=== PATIENT | male | born 1930 | race Caucasian/White ===

== ENCOUNTER 2016-11-19 13:24 | Inpatient (IN) | payer OTHER, MEDICARE ==
[~2016-11-19] VITALS: Ht 182.9 cm; Wt 82.6 kg
[~2016-11-19 13:24] MED LIST: ALBUAER2 INH; ASPCH81X PO; CALCTAB5 PO; CHOL100010 PO; MULT-506 PO; NUTR-977 GJT
[2016-11-19] MEDS ORDERED: METOPROLOL TARTRATE 1 MG/ML VIAL IV STA (13:48)
--- NOTE | 2016-11-19 14:07 | EMERGENCY ROOM VISIT NOTE ---
History Report prepared by [place]: Risa Blount Under the Supervision of: Dr. Leonard Lucia M.D. First contact with patient: 13:43 Chief Complaint: CARDIAC ASSESSMENT Stated Complaint: AFIB Nursing Triage Summary: Patient arrived via EMS. Patient has recent history of Afib (discovered at a normal check up per patient), Patient had been placed on Betablocker but pt reports he started feeling weak and SOB after he started the medication. Echo done today, aortic stenosis and mitral regurgitaion per EMS. Patient unable to be on anticoagulants, does take Aspirin 81mg today. Afib 100-120 initially per EMS, now 130's to 140's. EMS administered Nitro x 2 (sprays). Patient denies all chest pain. History of Present Illness The patient is a 86 year old male who presents to the Emergency Room with complaints of sudden atrial fibrillation that was noticed prior to arrival. The patient came to the ED via ambulance and was given 2 nitro sprays en route. The patient states that he had an echocardiogram done earlier today by Dr. Adames - Cardiology, which EMS reported to reveal aortic stenosis and mitral regurgitation. He denies any history of atrial fibrillation, but states that he was told many years ago that his "heart skipped a beat" once in a while. The patient states that he was scheduled for the echocardiogram by his PCP because of abnormal EKG findings 3 weeks ago when he was seen by his PCP in the office. The patient states that his EKG from 3 weeks ago revealed an elevated heart rate , per his . The patient's PCP then started him on medication for hypertension. The patient was on those medications for 2 weeks, but he stopped taking them after consulting his PCP because he was experiencing generalized weakness, fatigue, and worsening shortness of breath. The patient has been off of those medications for about one week now. The patient denies any chest pain or abdominal pain, along with lower extremity edema. He denies any history of heart problems and states that he takes a baby aspirin daily. Source of History: patient, friend, EMS Onset: [employer] Position: chest Quality: other (atrial fibrillation) Timing: other (sudden) Associated Symptoms: + SOB, + fatigue, + weakness, No abdominal pain, No chest pain Note: no lower extremity edema Review of Systems All systems have been listed, reviewed, and are negative other than those previously mentioned. Please see Additional Medical History Sheet. Past Medical & Surgical Medical Problems: (1) Atrial fibrillation with RVR (2) COPD (chronic obstructive pulmonary disease) (3) History of bladder cancer (4) History of prostate cancer (5) Hypertension (6) Hypoxia (7) Prostate CA Surgical Problems: (1) H/O cystoscopy (2) H/O prostate biopsy (3) History of cataract surgery Family History FH: aneurysm Social History Smoking Status: Never Smoker Alcohol Use: occasionally Drug Use: none Marital Status: Housing Status: lives with family Occupation Status: retired Current/Historical Medications Scheduled Aspirin (Aspirin Chewable), 81 MG PO DAILY Calcium Carbonate (Calcium), 2 TAB PO DAILY Cholecalciferol (Vitamin D), 1 TAB PO DAILY Multivitamin (Multivitamin), 1 TAB PO DAILY Scheduled PRN Albuterol Hfa (Ventolin Hfa), 2 PUFFS INH TID PRN for SOB/Wheezing Allergies Coded Allergies: No Known Allergies (Unverified , `, 11/19/16) Physical Exam Vital Signs Date Time Temp Pulse Resp B/P Pulse Ox O2 Delivery O2 Flow Rate FiO2 11/19/16 14:39 102 18 98 Nasal Cannula 3.0 11/19/16 14:34 107 21 98 Nasal Cannula 3.0 11/19/16 14:30 137/83 11/19/16 14:29 102 24 98 Nasal Cannula 3.0 11/19/16 14:24 105 14 99 Nasal Cannula 3.0 11/19/16 14:20 139/97 11/19/16 14:19 106 19 100 Nasal Cannula 3.0 11/19/16 14:15 154/97 11/19/16 14:14 110 20 99 Nasal Cannula 3.0 11/19/16 14:10 147/96 11/19/16 14:09 126 18 99 Nasal Cannula 3.0 11/19/16 14:08 123 153/92 11/19/16 14:06 153/92 11/19/16 14:04 132 20 94 Nasal Cannula 3.0 11/19/16 13:59 132 27 99 Nasal Cannula 3.0 11/19/16 13:56 98 Nasal Cannula 3.0 11/19/16 13:54 137 22 100 Nasal Cannula 3.0 11/19/16 13:49 132 23 95 Nasal Cannula 3.0 11/19/16 13:44 138 21 98 Nasal Cannula 3.0 11/19/16 13:39 140 22 97 Nasal Cannula 3.0 11/19/16 13:34 135 14 97 Nasal Cannula 3.0 11/19/16 13:33 98 Nasal Cannula 3.0 11/19/16 13:32 96 Nasal Cannula 3.0 11/19/16 13:28 36.9 134 26 153/104 84 Room Air 11/19/16 13:28 134 Physical Exam GENERAL: Patient awake, alert, oriented x 3. Patient follows commands. Patient does not appear toxic. Patient is adequately hydrated and well- nourished. SKIN: No erythema, pallor, cyanosis or rash HEENT: Normal head, pupils equal, reactive to light and accommodation. Ears normal. Oral cavity and posterior pharynx appear normal. Neck: Without adenopathy, no neck vein distention. LUNGS: Clear to auscultation. No wheezes, no rales, no rhonchi. HEART: Irregularly irregular rhythm with a rapid rate. No murmurs. No gallops. No rubs ABDOMEN: No masses, no rebound, no hepatomegaly or splenomegaly. EXTREMITIES: No signs of trauma. No pedal or pretibial edema. No calf or thigh tenderness. NEUROLOGIC: Cranial nerves II-XII within normal limits. No gross motor sensory function deficits. Medical Decision & Procedures ER Provider Diagnostic Interpretation: X ray results are stated below per my interpretation and the radiologist's interpretation. SINGLE VIEW CHEST IMPRESSION: 1. Cardiomegaly and severe emphysema. 2. There is airspace consolidation at the right lung base with a small right pleural effusion. Correlate clinically for evidence of aspiration pneumonitis/pneumonia. Radiographic follow-up to resolution is recommended. Electronically signed by: Abel Valdovinos M.D. 11/19/2016 2:10 PM Dictated Date/Time: 11/19/2016 2:08 PM Laboratory Results 11/19/16 14:10 Red Blood Count 4.54, Mean Corpuscular Volume 95.2, Mean Corpuscular Hemoglobin 30.8, Mean Corpuscular Hemoglobin Concent 32.4, Mean Platelet Volume 11.3, Neutrophils (%) (Auto) 79.2, Lymphocytes (%) (Auto) 8.6, Monocytes (%) (Auto) 11.2, Eosinophils (%) (Auto) 0.6, Basophils (%) (Auto) 0.2, Neutrophils # (Auto ) 6.55, Lymphocytes # (Auto) 0.71, Monocytes # (Auto) 0.93, Eosinophils # (Auto ) 0.05, Basophils # (Auto) 0.02 11/19/16 14:10 Test 11/19/16 14:10 White Blood Count 8.28 K/uL (4.8-10.8) Red Blood Count 4.54 M/uL (4.7-6.1) Hemoglobin 14.0 g/dL (14.0-18.0) Hematocrit 43.2 % (42-52) Mean Corpuscular Volume 95.2 fL (80-100) Mean Corpuscular Hemoglobin 30.8 pg (25-34) Mean Corpuscular Hemoglobin Concent 32.4 g/dl (32-36) Platelet Count 145 K/uL (130-400) Mean Platelet Volume 11.3 fL (7.4-10.4) Neutrophils (%) (Auto) 79.2 % Lymphocytes (%) (Auto) 8.6 % Monocytes (%) (Auto) 11.2 % Eosinophils (%) (Auto) 0.6 % Basophils (%) (Auto) 0.2 % Neutrophils # (Auto) 6.55 K/uL (1.4-6.5) Lymphocytes # (Auto) 0.71 K/uL (1.2-3.4) Monocytes # (Auto) 0.93 K/uL (0.11-0.59) Eosinophils # (Auto) 0.05 K/uL (0-0.5) Basophils # (Auto) 0.02 K/uL (0-0.2) RDW Standard Deviation 48.8 fL (36.4-46.3) RDW Coefficient of Variation 14.1 % (11.5-14.5) Immature Granulocyte % (Auto) 0.2 % Immature Granulocyte # (Auto) 0.02 K/uL (0.00-0.02) Prothrombin Time 11.5 SECONDS (9.0-12.0) Prothromb Time International Ratio 1.1 (0.9-1.1) Activated Partial Thromboplast Time 28.0 SECONDS (21.0-31.0) Partial Thromboplastin Ratio 1.1 Anion Gap 4.0 mmol/L (3-11) Est Creatinine Clear Calc Drug Dose 43.1 ml/min Estimated GFR () 56.5 Estimated GFR (Non- 48.7 BUN/Creatinine Ratio 16.7 (10-20) Calcium Level 8.9 mg/dl (8.5-10.1) Magnesium Level 2.3 mg/dl (1.8-2.4) Total Bilirubin 1.0 mg/dl (0.2-1) Aspartate Amino Transf (AST/SGOT) 29 U/L (15-37) Alanine Aminotransferase (ALT/SGPT) 29 U/L (12-78) Alkaline Phosphatase 49 U/L (45-117) Troponin I 0.025 ng/ml (0-0.045) Total Protein 6.4 gm/dl (6.4-8.2) Albumin 3.5 gm/dl (3.4-5.0) Globulin 2.9 gm/dl (2.5-4.0) Albumin/Globulin Ratio 1.2 (0.9-2) Thyroid Stimulating Hormone (TSH) 2.090 uIu/ml (0.300-4.500) Laboratory results as stated above per my review. Medications Administered Medications (Trade) Dose Ordered Sig/Reginaldo Route Start Time Stop Time Status Last Admin Dose Admin Metoprolol Tartrate (Lopressor Iv) 15 mg NOW STAT IV 11/19/16 13:48 11/19/16 13:50 DC 11/19/16 14:08 15 MG ECG Indication: SOB/dyspnea Rate (beats per minute): 136 Rhythm: atrial fibrillation (with rapid ventricular response) Findings: nonspecific-ST abn, other (normal axis) ED Course 1343: Past medical records reviewed. The patient was evaluated in room A12. A complete history and physical examination was performed. 1348: Ordered Lopressor 15 mg IV 1424: Discussed the patient's case with Dr. Adames - Cardiology. He informed me that the patient was in new-onset atrial fibrillation on October 30 with weakness and shortness of breath. The patient was treated as an outpatient and his symptoms today are not new. Dr. Adames also recommended admission. 1501: Discussed the patient's case with Anjali Best. The patient will be evaluated for further management. 1506: Upon reevaluation, the patient is resting comfortably. His heart rate is still above 100. I discussed today's findings with him. He verbalized agreement of the treatment plan. [facility] for further management. Medical Decision Nurses notes reviewed. Medical history sheet reviewed. Differential diagnosis includes but is not limited to: atrial fibrillation with rapid ventricular response, metabolic disorder, thyroid disorder, pulmonary hypertension. The patient has been in atrial fibrillation for at least 2 weeks. He has a rapid ventricular response. Echocardiogram earlier today reveals significant pulmonary hypertension and valvular disease. The patient was given metoprolol x3 which did slow his rate but did not convert him. He remains tachycardic. Multiple labs, EKG and imaging were evaluated. Please see above. The patient will require further evaluation the hospital. I discussed care with the patient , his and and with the hospitalist. Consults Time Called: 1412 Consulting Physician: Dr. Adames - Cardiology Returned Call: [phone] Discussed the patient's case with Dr. Adames - Cardiology. He informed me that the patient was in new-onset atrial fibrillation on October 30 with weakness and shortness of breath. The patient was treated as an outpatient and his symptoms today are not new. Dr. Adames also recommended admission. Additional Consults: Time Called: [id number] Consulted Physician: Anjali Best Returned Call: [phone] Additional Comments: Discussed the patient's case with Anjali Best. The patient will be evaluated for further management. Impression Primary Impression: Atrial fibrillation with rapid ventricular response Additional Impression: Pulmonary hypertension Critical Care I have personally spent greater than 35 minutes of critical care time in the direct management of this patient. This includes bedside care, interpretation of diagnostic studies, and testing, discussion with consultants, patient, and family members, and other required patient management activities. This 35 minutes is in excess of all separately billable procedures. Scribe Attestation The scribe's documentation has been prepared under my direction and personally reviewed by me in its entirety. I confirm that the note above accurately reflects all work, treatment, procedures, and medical decision making performed by me. Departure Information Dispostion Being Evaluated By Hospitalist Referrals Cj Galdamez M.D. (PCP) Patient Instructions My [facility] Problem Qualifiers
--- NOTE | 2016-11-19 14:12 | DIAGNOSTIC IMAGING REPORT ---
SINGLE VIEW CHEST CLINICAL HISTORY: Atrial fibrillation. FINDINGS: 2 AP, portable, upright chest radiograph are obtained. No prior studies are available for comparison at the time of dictation. The examination is significantly degraded by portable technique and patient rotation. The heart is enlarged and there is atherosclerotic calcification of the thoracic aorta. The pulmonary vasculature is noncongested. Advanced emphysema and interstitial thickening are identified. There is airspace consolidation at the right lung base with a small right pleural effusion. Dependent atelectasis is seen at the left lung base. The left lung is otherwise clear. No pneumothorax is seen. The skeletal structures are osteopenic. Degenerative change is noted throughout the thoracic spine. IMPRESSION: 1. Cardiomegaly and severe emphysema. 2. There is airspace consolidation at the right lung base with a small right pleural effusion. Correlate clinically for evidence of aspiration pneumonitis/pneumonia. Radiographic follow-up to resolution is recommended. Electronically signed by: Abel Valdovinos M.D. 11/19/2016 2:10 PM Dictated Date/Time: 11/19/2016 2:08 PM
[2016-11-19] MEDS ORDERED: CALC-393 PO (14:29)
[2016-11-19] MEDS ORDERED: CHOL100010 PO (14:29)
[2016-11-19] MEDS ORDERED: VNTHFA/IN INH (14:30)
--- NOTE | 2016-11-19 14:41 | Cardiology Consultation ---
Cardiology Consultation Date of Consultation: Nov 19, 2016 History of Present Illness Agustin Bishop is a 86 year old year old male seen in cardiology consultation per the request of Dr. Cj Galdamez for the above concerns. The patient had seen Dr. Galdamez on 10/30/2016 and complained of having decreased energy. He described having shortness of breath with minimal activity and just generalized weakness. Although in the vital signs associated with that encounter, his heart rate was recorded as being 84 beats per minute, when an EKG was performed he was found to have atrial fibrillation with rapid ventricular rate of 121 beats per minute with subtle ST and T-wave abnormality in the inferior leads suggestive of possible ischemia. The atrial fibrillation appears to have been first detected on 10/30/16, however the only prior EKG available for review is from 03/03/13 at which time sinus rhythm was present. Carvedilol 12.5 milligrams twice daily was prescribed on 10/31/2016. The patient had been seen back by his primary care provider in follow-up and reported that his generalized weakness seem to be worse while on the carvedilol and therefore the patient discontinue this medication. A chest x-ray performed 10/30/16 revealed focal airspace opacity in the right lung base as well as a 5 millimeter nodule in the right upper lobe. The pulmonary vascular markings were felt to be within normal limits per the Radiology interpretation. Diffusely thickened course interstitial markings bilaterally were noted suggestive of underlying interstitial lung disease. The patient was scheduled for an outpatient cardiology appointment next week and in the interim arrived today 11/19/2016 for an outpatient echocardiogram. The echocardiogram revealed persistent atrial fibrillation with rapid ventricular rate in the 120 to 130 beat per minute range with mild LV systolic dysfunction, biatrial enlargement, and severe pulmonary hypertension with calculated pulmonary artery systolic pressure above 70 millimeters of Hg. The Doppler assessment of the valves is somewhat technically limited due to the rapid ventricular rate, but at least moderate and perhaps severe mitral regurgitation was present. Moderate severe tricuspid regurgitation was present. Moderate aortic valve regurgitation was present. And severe aortic stenosis appeared to be present based on the 2D image. The Doppler evaluation of the aortic valve was discordant with the 2D appearance however severe aortic stenosis cannot be excluded. After the put in beat adjuster completed the echocardiogram, I provided a preliminary interpretation. The patient was assessed in seen in interviewed by the undersigned. The patient was accompanied by his daughter. Described progressive worsening shortness of breath and fatigue with minimal activity. Patient has a history of past echocardiogram performed at the [facility] in 2014. The report describes mild aortic valve stenosis with normal LV EF and mild mitral regurgitation mild tricuspid regurgitation without significant pulmonary hypertension per the report. History Past Medical History: 1. Dyslipidemia 2. Severe COPD 3. Stage 3 chronic kidney disease 4. Cataract 5. History of tobacco use Past Surgical History: 1. Prostate biopsy 2. Cystoscopy 2015 3. Cataract extraction left eye 2012 Social History: patient is . 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 A total of 10 systems reviewed and were otherwise negative. Allergies Coded Allergies: No Known Allergies (Unverified , `, 11/19/16) Medications Reported Home Medications Medications Dose Route/Sig Max Daily Dose Days Date Category Ventolin Hfa (Albuterol) 200 Puffs/74554 Mcg Aers 2 Puffs INH Q6H 11/19/16 Reported Calcium (Calcium Carbonate) 600 Mg Tab 1 Tab PO DAILY 11/19/16 Reported Vitamin D (Cholecalciferol) 1,000 Unit Tab 1 Tab PO BID 11/19/16 Reported Ventolin (Albuterol) Inh 2 Puffs INH PRN 5 09/12/15 Reported Multivitamin (Multivitamins) Tab 1 Tab PO DAILY 09/07/15 Reported Aspirin Chewable (Aspirin) 81 Mg Chew 81 Mg PO DAILY 09/07/15 Reported Physical Exam Vital Signs (Last 8hrs): Last 8 Hrs Date Time Temp Pulse Resp B/P Pulse Ox O2 Delivery O2 Flow Rate FiO2 11/19/16 14:24 105 14 99 Nasal Cannula 3.0 11/19/16 14:20 139/97 11/19/16 14:19 106 19 100 Nasal Cannula 3.0 11/19/16 14:15 154/97 11/19/16 14:14 110 20 99 Nasal Cannula 3.0 11/19/16 14:10 147/96 11/19/16 14:09 126 18 99 Nasal Cannula 3.0 11/19/16 14:08 123 153/92 11/19/16 14:06 153/92 11/19/16 14:04 132 20 94 Nasal Cannula 3.0 11/19/16 13:59 132 27 99 Nasal Cannula 3.0 11/19/16 13:56 98 Nasal Cannula 3.0 11/19/16 13:54 137 22 100 Nasal Cannula 3.0 11/19/16 13:49 132 23 95 Nasal Cannula 3.0 11/19/16 13:44 138 21 98 Nasal Cannula 3.0 11/19/16 13:39 140 22 97 Nasal Cannula 3.0 11/19/16 13:34 135 14 97 Nasal Cannula 3.0 11/19/16 13:33 98 Nasal Cannula 3.0 11/19/16 13:32 96 Nasal Cannula 3.0 11/19/16 13:28 36.9 134 26 153/104 84 Room Air 11/19/16 13:28 134 physical examination performed at [facility] on 11/19/2016 at 1:30 p.m. General Appearance: Alert and Oriented x3. Frail, tired Head: Normocephalic Atraumatic. Eyes: PERRLA, EOMI, conjunctiva and sclera clear Neck: Supple. No carotid bruits noted. No JVD. No HJD. Respiratory: coarse breath sounds throughout the lung schwab Cardiovascular: irregular rhythm 2.6 SM Abdomen: Normal bowel sounds, soft nontender. no abdominal bruits. Extremities: No edema, no clubbing or cyanosis. distal pulses 2/4 bilaterally. Neuro: No focal deficits. Psychiatric: Normal affect. Data labs are pending EKG performed 10/30/2016, tracing was reviewed independently by the undersigned column interpretation as noted above Summary of transthoracic echocardiogram performed 11/19/2016 reviewed independently by the undersigned: There was atrial fibrillation during the examination with rapid ventricular rate during the echocardiogram. There is mild diffuse left ventricular hypokinesis. The left ventricular systolic function is mildly reduced. Calculated LV ejection Fraction = 41% (bi-plane method of discs). The left atrium is moderately enlarged. The right atrium is severely enlarged. The aortic valve is severely calcified. Moderate aortic valve regurgitation is present. Image and Doppler assessment of aortic stenosis severity is discordant: Severe aortic stenosis is suspected. Moderate mitral regurgitation is present. Moderate to severe tricuspid regurgitation is present. Dilated IVC with reduced collapsability with sniff indicates an elevated right atrial pressure of 15mmHg. Severe pulmonary hypertension is present. The estimated pulmonary artery systolic pressure is 78mm Hg. Cardiology follow up was arranged in the clinic after the echocardiogram was completed. Assessment & Plan IMPRESSION: 86 year old year old male 1. Symptomatic atrial fibrillation with rapid ventricular response 2. Acute biventricular systolic heart failure 3. Pulmonary hypertension, likely secondary to underlying COPD/interstitial lung disease, with prior history of 64 years of cigarette smoking 4. Aortic valve stenosis, at least moderate, and perhaps severe 5. Moderate to severe mitral regurgitation 6. Moderate severe tricuspid regurgitation 7. 5 millimeter lung nodule in recent chest x-ray RECOMMENDATIONS/PLAN: At this time, patient has not improved, and has worsened over the last 2 weeks in terms of his symptoms. He notes severe fatigue, shortness of breath with minimal activity. A trial of outpatient beta-linda therapy with carvedilol was tried but the patient did not tolerate this. Would recommend starting low dose cardioselective beta linda, metoprolol tartrate 25 milligrams by mouth every 6 hours with hold for heart rate less than 60 and systolic blood pressure less than 100. Regarding stroke prophylaxis,he is only on aspirin as an outpatient. I asked him if he has ever had a bleeding problem, and he described having had admission a [facility] for bleeding while he was on a full- strength aspirin. After blood work is performed would recommend heparin for stroke prophylaxis if his hemoglobin is stable. Start low-dose metoprolol orally. At present, is difficult to determine if his elevated right atrial and right ventricular systolic pressure is due to volume overload or as a complication of his underlying interstitial lung disease. Recommend admission to the service of the [facility] with cardiology and perhaps Pulmonary consultation. Case discussed with Dr Lucia of the ED. Kimber Adames DO
[2016-11-19 14:44] LABS: BUN/CREATININE RATIO 16.7 (10-20); CALCIUM 8.9 mg/dl (8.5-10.1); CREATININE 1.3 mg/dl (0.60-1.40); POTASSIUM 4.2 mmol/L (3.5-5.1)
[2016-11-19 14:49] LABS: ALB/GLOB RATIO 1.2 (0.9-2)
[2016-11-19 14:59] LABS: BASO % 0.2 %; BASO ABS # 0.02 K/uL (0-0.2); COMPLETE YES; EOS % 0.6 %; HEMATOCRIT 43.2 % (42-52); IG% 0.2 %; LYMPH % 8.6 %; LYMPH ABS # 0.71 K/uL (1.2-3.4); MEAN CELL VOLUME 95.2 fL (80-100); MEAN CORPUSCULAR HEMOGLOBIN 30.8 pg (25-34); MEAN CORPUSCULAR HGB CONC 32.4 g/dl (32-36); MEAN PLATELET VOLUME 11.3 fL (7.4-10.4); MONO % 11.2 %; NEUT % 79.2 %; PLATELET COUNT 145 K/uL (130-400); RED BLOOD COUNT 4.54 M/uL (4.7-6.1); WHITE BLOOD COUNT 8.28 K/uL (4.8-10.8)
[2016-11-19] MEDS ORDERED: NITROGLYCERIN 0.4 MG SL PER TAB CHARGE SL PRN (15:45)
[2016-11-19] MEDS ORDERED: ACETAMINOPHEN 325 MG TAB PO PRN (15:45)
[2016-11-19] MEDS ORDERED: ONDANSETRON INJ 2 MG/ML 2 ML VIAL IV PRN (15:45)
[2016-11-19 15:52] LABS: MAGNESIUM 2.3 mg/dl (1.8-2.4); THYROID STIMULATING HORMONE 2.09 uIu/ml (0.300-4.500)
[2016-11-19] MEDS ORDERED: ALBUTEROL HFA 8 GM INHALER INH PRN (16:00)
[2016-11-19 16:18] LABS: INR 1.1 (0.9-1.1); PARTIAL THROMBOPLASTIN RATIO 1.1; PROTHROMBIN TIME (PATIENT) 11.5 SECONDS (9.0-12.0)
[2016-11-19] MEDS ORDERED: POTASSIUM CHLORIDE 10 MEQ TABCR PO STA (16:29)
[2016-11-19] MEDS ORDERED: HEPARIN 25000 UNIT/500 ML D5W ONE (16:34)
--- NOTE | 2016-11-19 16:40 | History and Physical ---
History & Physical Date & Time of Service: Nov 19, 2016 at 16:06 Chief Complaint: AFIB Primary Care Physician: Cj Galdamez M.D. History of Present Illness Source: patient, family, clinic records, hospital records Patient seen and examined. 86 year old male with PMHx of COPD, Bladder CA, CKD stage 3, and other problems listed below presents to the ED complaining of Afib from Dr. Adames's office. Patient reports he has been feeling tired and SOB for about a month. He states he saw his PCP on 10/30 for a checkup and was found to be in Afib. He was started on carvedilol but reports his fatigue and SOB worsened so he called his PCP and stopped that medication about a week ago. Since then he continues to have no energy. He reports he usually rides a stationary bike 45 minutes a day but in the past week he can hardly walk across the room without becoming SOB. He report he saw his PCP last week and was still in Afib so he was scheduled for an echocardiogram today. Echo revealed that the patient was in Afib with RVR with rates in the 130s. He had severe pulmonary HTN and multiple valvular abnormalities. He was seen by Dr. Adames and referred to the ED for further workup. He denies fevers, chills, URI symptoms, chest pain, palpitations, nausea, vomiting, diarrhea, dysuria, calf pain and edema. He takes a baby aspirin daily, he denies any bleeding. He states he took a full dose aspirin for 20 years but then had some mild bleeding so he decreased to the baby Aspirin. He denies history of heart problems.In the ED patient is hypoxic on RA, HR is in the 130s, EKG shows afib, Deonna are negative x 1, Lytes are stable. He received Lopressor 5mg IV x 3 doses and rate has improved to the low 100s. He will be admitted for further workup and treatment. Past Medical/Surgical History Medical Problems: (1) COPD (chronic obstructive pulmonary disease) Status: Chronic (2) History of bladder cancer Status: Chronic (3) History of prostate cancer Status: Chronic (4) Hypertension Status: Chronic (5) Prostate CA Status: Chronic Surgical Problems: (1) H/O cystoscopy Status: Chronic (2) H/O prostate biopsy Status: Chronic (3) History of cataract surgery Status: Chronic Family History FH: aneurysm FH: cancer Social History Smoking Status: Former Smoker Alcohol Use: occasionally Drug Use: none Marital Status: Housing status: lives alone Occupational Status: retired Allergies Coded Allergies: No Known Allergies (Unverified , `, 11/19/16) Home Medications Scheduled Aspirin (Aspirin Chewable), 81 MG PO DAILY Calcium Carbonate (Calcium), 2 TAB PO DAILY Cholecalciferol (Vitamin D), 1 TAB PO DAILY Multivitamin (Multivitamin), 1 TAB PO DAILY Scheduled PRN Albuterol Hfa (Ventolin Hfa), 2 PUFFS INH TID PRN for SOB/Wheezing Review of Systems Constitutional: + fatigue, + weakness, No chills, No fever Eyes: No worsening of vision ENT: No hearing loss, No nasal symptoms Respiratory: + shortness of breath, No cough, No sputum, No wheezing Cardiovascular: No chest pain, No edema, No palpitations Abdomen: No constipation, No diarrhea, No nausea, No pain, No vomiting Musculoskeletal: No calf pain, No swelling Genitourinary - Male: No dysuria Neurologic: No numbness/tingling, No vertigo Psychiatric: No anxiety, No insomnia Hematologic / Lymphatic: No abnormal bleeding/bruising, No clotting problems Integumentary: No itch, No rash Allergic / Immunologic: No environmental allergies Physical Exam Vital Signs Date Time Temp Pulse Resp B/P Pulse Ox O2 Delivery O2 Flow Rate FiO2 11/19/16 14:39 102 18 98 Nasal Cannula 3.0 11/19/16 14:34 107 21 98 Nasal Cannula 3.0 11/19/16 14:30 137/83 11/19/16 14:29 102 24 98 Nasal Cannula 3.0 11/19/16 14:24 105 14 99 Nasal Cannula 3.0 11/19/16 14:20 139/97 11/19/16 14:19 106 19 100 Nasal Cannula 3.0 11/19/16 14:15 154/97 11/19/16 14:14 110 20 99 Nasal Cannula 3.0 11/19/16 14:10 147/96 11/19/16 14:09 126 18 99 Nasal Cannula 3.0 11/19/16 14:08 123 153/92 11/19/16 14:06 153/92 11/19/16 14:04 132 20 94 Nasal Cannula 3.0 11/19/16 13:59 132 27 99 Nasal Cannula 3.0 11/19/16 13:56 98 Nasal Cannula 3.0 11/19/16 13:54 137 22 100 Nasal Cannula 3.0 11/19/16 13:49 132 23 95 Nasal Cannula 3.0 11/19/16 13:44 138 21 98 Nasal Cannula 3.0 11/19/16 13:39 140 22 97 Nasal Cannula 3.0 11/19/16 13:34 135 14 97 Nasal Cannula 3.0 11/19/16 13:33 98 Nasal Cannula 3.0 11/19/16 13:32 96 Nasal Cannula 3.0 11/19/16 13:28 36.9 134 26 153/104 84 Room Air 11/19/16 13:28 134 General Appearance: + pertinent finding (Pleasant WD/WN 86 year old female lying in bed in NAD with daughter at bedside ) Head: normocephalic, atraumatic Eyes: PERRL, EOMI, sclerae normal ENT: hearing grossly normal, pharynx normal Neck: supple, no JVD Respiratory/Chest: chest non-tender, lungs clear, normal breath sounds, no respiratory distress, no accessory muscle use Cardiovascular: no gallop, no JVD, normal peripheral pulses, + irregularly irregular (rate 110s) Abdomen/GI: normal bowel sounds, non tender, soft Back: normal inspection, no muscle spasm Extremities/Musculoskelatal: no calf tenderness, normal capillary refill, + pedal edema (trace) Neurologic/Psych: alert, oriented x 3, + pertinent finding (no focal deficits ) Skin: normal color, warm/dry, no rash Lymphatic: no adenopathy Diagnostics Laboratory Results Results Past 24 Hours Test 11/19/16 14:10 Range/Units White Blood Count 8.28 4.8-10.8 K/uL Red Blood Count 4.54 4.7-6.1 M/uL Hemoglobin 14.0 14.0-18.0 g/dL Hematocrit 43.2 42-52 % Mean Corpuscular Volume 95.2 80-100 fL Mean Corpuscular Hemoglobin 30.8 25-34 pg Mean Corpuscular Hemoglobin Concent 32.4 32-36 g/dl Platelet Count 145 130-400 K/uL Mean Platelet Volume 11.3 7.4-10.4 fL Neutrophils (%) (Auto) 79.2 % Lymphocytes (%) (Auto) 8.6 % Monocytes (%) (Auto) 11.2 % Eosinophils (%) (Auto) 0.6 % Basophils (%) (Auto) 0.2 % Neutrophils # (Auto) 6.55 1.4-6.5 K/uL Lymphocytes # (Auto) 0.71 1.2-3.4 K/uL Monocytes # (Auto) 0.93 0.11-0.59 K/uL Eosinophils # (Auto) 0.05 0-0.5 K/uL Basophils # (Auto) 0.02 0-0.2 K/uL RDW Standard Deviation 48.8 36.4-46.3 fL RDW Coefficient of Variation 14.1 11.5-14.5 % Immature Granulocyte % (Auto) 0.2 % Immature Granulocyte # (Auto) 0.02 0.00-0.02 K/uL Sodium Level 145 136-145 mmol/L Potassium Level 4.2 3.5-5.1 mmol/L Chloride Level 107 98-107 mmol/L Carbon Dioxide Level 34 21-32 mmol/L Anion Gap 4.0 3-11 mmol/L Blood Urea Nitrogen 22 7-18 mg/dl Creatinine 1.30 0.60-1.40 mg/dl Est Creatinine Clear Calc Drug Dose 43.1 ml/min Estimated GFR () 56.5 Estimated GFR (Non- 48.7 BUN/Creatinine Ratio 16.7 10-20 Random Glucose 115 70-99 mg/dl Calcium Level 8.9 8.5-10.1 mg/dl Magnesium Level 2.3 1.8-2.4 mg/dl Total Bilirubin 1.0 0.2-1 mg/dl Aspartate Amino Transf (AST/SGOT) 29 15-37 U/L Alanine Aminotransferase (ALT/SGPT) 29 12-78 U/L Alkaline Phosphatase 49 45-117 U/L Troponin I 0.025 0-0.045 ng/ml Total Protein 6.4 6.4-8.2 gm/dl Albumin 3.5 3.4-5.0 gm/dl Globulin 2.9 2.5-4.0 gm/dl Albumin/Globulin Ratio 1.2 0.9-2 Thyroid Stimulating Hormone (TSH) 2.090 0.300-4.500 uIu/ml Diagnostic Radiology CXR Per radiologist read: IMPRESSION: 1. Cardiomegaly and severe emphysema. 2. There is airspace consolidation at the right lung base with a small right pleural effusion. Correlate clinically for evidence of aspiration pneumonitis/pneumonia. Radiographic follow-up to resolution is recommended. EKG Afib with RVR 135 BPM Qtc 453 Impression Assessment and Plan 86 year old male presents to the ED from Dr. Adames's office for further evaluation of Afib with RVR. Patient diagnosed on 10/30 in PCPs office, started on Carvedilol but patient had progressive SOB and fatigue so he stopped medication last week. ATRIAL FIBRILLATION WITH RVR -Admit to tele -CHADS Score 2 -Received 15 mg total IV Lopressor in ED, rates in the low 100 -Lytes stable, TSH normal -Per Dr. Adames's recommendation start metoprolol tartrate 25mg po Q6h -Heparin drip low dose no bolus started -Cardiology consult for further recommendations input appreciated -AHA diet -CBC, PRP, Mg daily -VSS, monitor VOLUME OVERLOAD -Likely secondary to Afib with RVR versus underlying CHF secondary to valvular disease, Pulmonary HTN. -EF 40% -Give one dose 40mg IV Lasix -supplement potassium -Repeat CXR in AM -monitor I&Os, Daily weights -Cardiology on board ACUTE HYPOXIC RESPIRATORY FAILURE -? secondary to volume overload in setting of Afib RVR -continue supplemental oxygen, wean as able ?UNDERLYING HTN -BP elevated on arrival, 150s/100s -Is being started on Metoprolol for Afib -will monitor BP response to BB COPD -64 pack year history -Continue prn albuterol -No symptoms of exacerbation -CXR with possible infiltrate ?secondary to volume overload - will repeat in AM CKD STAGE 3 -Crea 1.3, stable -will give lasix 40mg IV x 1 dose -monitor renal function in setting of diuresis, avoid nephrotoxic agents as able PULMONARY HTN -per echo today -estimated pulmonary artery systolic pressure - 78 mmHg -may need pulmonology consult, defer to attending physician VALVULAR DISEASE -Moderate AR, Moderate to Severe TR, Severe , Moderate MR -Per echo completed today -cardiology on board [facility] NODULE -incidental finding of outpatient CXR today -5mm nodule RUL -Nonemergent CT recommended H/O BLADDER CA -follows with Dr. Cabrera -stable per patient DVT PROPHYLAXIS: Heparin gtt CODE STATUS:LEVEL 3 NO MECHANICAL VENTILATION per my discussion with the patient and his daughter DISPO:In my clinical judgment this beneficiary meets acute admission criteria, established by [facility], that includes being hospitalized through two midnights. Patient seen in collaboration with Dr. Bynum VTE Prophylaxis VTE Risk Assessment Done? Y/N: Yes Risk Level: Moderate Note ATTENDING ADDENDUM Record reviewed. Patient interviewed and examined in ED @ 16:05. Care coordinated with Anjali Alvarado PA-C. Please refer to her documentation for patient's history. Briefly, 86 YO male with history of COPD, recent onset AF, valvular heart disease, and other problems. Seen in Cardiology Clinic today. Experiencing dyspnea on exertion. Found to be in AF with rapid ventricular response. Referred for hospitalization for further management. EXAM: General- no acute distress at time of my assessment VS- as noted Neck- + JVD Lungs- bibasilar rales, diffuse wheezing Heart- distant heart sounds, irregular, no murmur or gallop appreciated (exam limited) Abdomen- + BS, soft, nontender Extremities- trace pretibial edema, no calf tenderness Neuro- alert, oriented DATA: K 4.3, Mg 2.3, TSH 2.090. Trop I 0.025. Other lab studies as noted. CXR reviewed- cardiomegaly, vascular congestion, increased density and pleural fluid right base. EKG performed at 13:26 reviewed and demonstrated AF at 130 / minute, slight ST depression inferiorly and anterolaterally. ASSESSMENT AND PLAN: Atrial fibrillation with RVR. Lytes and TSH OK. Metoprolol for rate control. Initiate anticoagulation with IV heparin. Cardiology consulted. Acute respiratory failure. Dyspneic. Tachypneic with RR of 26 upon presentation. O2 sat was 84% on RA. Suspect combination of CHF + underlying COPD. Titrate supplemental O2. Treat underlying causes. CHF Echo demonstrated LVEF 40%. Probable acute left ventricular systolic heart failure, possibly exacerbated by rapid AF. IV furosemide x 1. Control ventricular rate. Follow. Valvular heart disease. Echo demonstrated severe , moderate-severe MR, moderate-severe TR. Management per Cardiology. Please refer to PROMISE Alvarado's documentation for discussion of other issues. Davis Bynum MD .
[2016-11-19 16:58] VITALS: BP_SYST 144; BP_SYST 149; BP_DIAS 80; BP_DIAS 91; PULSE 125; TEMP 36.7; O2SAT 96; Ht 182.9 cm; Wt 82.6 kg
[2016-11-19] MEDS ORDERED: FUROSEMIDE INJ 40 MG in SYRINGE 0 ML IV ONE (17:30)
[2016-11-19] MEDS ORDERED: DIGOXIN 0.25 MG TAB PO ONE (17:45)
[2016-11-19] MEDS: METOPROLOL TARTRATE 25 MG TAB PO SCH ×2 (17:51→23:37)
[2016-11-19] MEDS ORDERED: FUROSEMIDE INJ 20 MG in SYRINGE 0 ML IV ONE (18:30)
[2016-11-19] MEDS ORDERED: POTASSIUM CHLORIDE 10 MEQ TABCR PO ONE (18:45)
--- NOTE | 2016-11-19 18:52 | PROGRESS NOTE ---
DATE: 11/19/2016 The patient seen and examined. Chart, medications, telemetry reviewed. SUBJECTIVE: The patient feels breathless, but no acute complaints. Heart rate is 103, blood pressure is 132/101. IV metoprolol in the ER has slowed heart rate slowly from 134 to a high 100s, notes no chest pains, does feel breathless, noted he felt poorly on carvedilol on prior attempts to slow heart rate. Notes approximately 20 pound weight gain over the past several months. Notes no dizziness or lightheadedness. OBJECTIVE: VITAL SIGNS: As noted heart rate is 106, blood pressure is 154/97, pulse ox 100% on 3 liters nasal cannula. HEENT: Normocephalic, atraumatic. NECK: Thin. There is jugular venous distention present with patient examined at 30 degrees. LUNGS: Revealed markedly diminished breath sounds diffusely. CARDIOVASCULAR: Irregular, irregular. There is no S3 gallop. There is no audible murmur or rub with distant heart sounds. ABDOMEN: Soft. EXTREMITIES: Reveal 1-2+ lower extremity edema. IMPRESSION: An 86-year-old male admitted with declining functional capacity in the setting of atrial fibrillation with rapid ventricular response, suspect component of volume overload with valvular abnormalities on recent echocardiogram, though performed with patient is tachycardic. He has been begun on IV, now oral metoprolol. We will continue current metoprolol dosing, but add digoxin with ultimate plan to reduce metoprolol dosing. In the interim, we will continue heparin, with likely conversion to full anticoagulation as clinical course progresses. Single dose of IV furosemide administered this evening.
[2016-11-19 19:51] VITALS: BP 122/78; PULSE 106; TEMP 36.6; O2SAT 96
[2016-11-19 20:15] VITALS: O2SAT 96
[2016-11-19 23:03] LABS: PARTIAL THROMBOPLASTIN RATIO 3.7
[2016-11-20] VITALS (8 sets, daily range): BP systolic 124–148; BP diastolic 64–84; PULSE 83–107; TEMP 36.4–36.8; O2SAT 95–98
[2016-11-20] MEDS: HEPARIN 25,000 UNIT/500ML D5W 500 ML IV PRN ×2 (01:15→18:26)
[2016-11-20] MEDS: METOPROLOL TARTRATE 25 MG TAB PO SCH ×3 (05:36→20:51)
[2016-11-20 05:57] LABS: HEMATOCRIT 42.1 % (42-52); MEAN CELL VOLUME 95.9 fL (80-100); MEAN CORPUSCULAR HEMOGLOBIN 30.5 pg (25-34); MEAN CORPUSCULAR HGB CONC 31.8 g/dl (32-36); MEAN PLATELET VOLUME 11.3 fL (7.4-10.4); PLATELET COUNT 150 K/uL (130-400); RED BLOOD COUNT 4.39 M/uL (4.7-6.1); WHITE BLOOD COUNT 7.39 K/uL (4.8-10.8)
[2016-11-20 06:26] LABS: PARTIAL THROMBOPLASTIN RATIO 4.4
[2016-11-20 06:35] LABS: BUN/CREATININE RATIO 15.7 (10-20); CALCIUM 8.7 mg/dl (8.5-10.1); CREATININE 1.4 mg/dl (0.60-1.40); MAGNESIUM 2.1 mg/dl (1.8-2.4)
[2016-11-20] MEDS: ASPIRIN 81 MG ECTAB PO SCH (07:55)
[2016-11-20] MEDS: CHOLECALCIFEROL 1000 INTER.UNIT TAB PO SCH (07:55)
[2016-11-20] MEDS: MULTIVITAMIN TAB PO SCH (07:55)
[2016-11-20] MEDS: CALCIUM CARBONATE 1250MG TAB PO SCH (07:55)
--- NOTE | 2016-11-20 09:17 | DIAGNOSTIC IMAGING REPORT ---
CHEST 2 VIEWS ROUTINE CLINICAL HISTORY: f/u consolidation pneumonia COMPARISON STUDY: 11/19/2016 FINDINGS: Improving consolidative process right base. Small right pleural effusion also improved. Mild residual pleural reactive change. Lungs otherwise appear clear. IMPRESSION: Improved right base with a considerable decrease in volume of a consolidative process as well as a small right effusion. Electronically signed by: David Esquivel M.D. 11/20/2016 9:15 AM Dictated Date/Time: 11/20/2016 9:14 AM
--- NOTE | 2016-11-20 10:43 | CARDIOLOGY PROGRESS NOTE ---
DATE: 11/20/2016 DATE: 11/20/2016. SUBJECTIVE: The patient feels improved this morning. Did manifest significant diuresis overnight approximately 2 liters. Denies any chest pains. Breathing is easier. Notes no dizziness or lightheadedness. Notes no bleeding difficulties. He is currently on IV heparin. OBJECTIVE: VITAL SIGNS: Telemetry reveals atrial fibrillation with elevated ventricular response rate. Heart rates 92, blood pressure is 128/72. NECK: Thin. There is no jugular venous distention at 30 degrees. LUNGS: Reveal diminished breath sounds diffusely. CARDIOVASCULAR EXAMINATION: Irregular, irregular with a grade 1-2/6 systolic murmur right upper sternal border with very distant heart sounds. ABDOMEN: Soft, nontender. EXTREMITIES: Without cyanosis or clubbing. Edema from yesterday has resolved. LABORATORY DATA: White cell count 7.3, hemoglobin is 13.4. Sodium is 144, potassium is 4.0, chloride is 104, bicarbonate 35, BUN is 22, creatinine is 1.4. Serial troponins x3 are negative for injury or infarct. EKG this morning demonstrates atrial fibrillation at a rate of [address] segment changes. IMPRESSION: An 86-year-old male with atrial fibrillation with rapid ventricular response, mildly decompensated diastolic heart failure secondary to valvular heart disease and rapid ventricular response rate. Clinically improved this morning. PLAN: Continue anticoagulation with heparin with planned bridge to Coumadin initiating anticoagulation orally this evening. Will reduce metoprolol tartrate to 25 mg t.i.d. while giving an additional dose of digoxin this morning and this afternoon. The patient may require future doses of diuretics, though currently appears to be compensated and improved. Chest x-ray demonstrates clinical improvement this morning. Anticipate repeating echocardiogram as heart rate is slow to get a better evaluation of valvular structures.
[2016-11-20] MEDS ORDERED: DIGOXIN 0.25 MG TAB PO ONE (11:00)
[2016-11-20 13:13] LABS: PARTIAL THROMBOPLASTIN RATIO 2.5
--- NOTE | 2016-11-20 16:46 | Progress Note ---
Internal Med Progress Note Date of Service: Nov 20, 2016. Provider Documentation: SUBJECTIVE: says feeling much better lately he was getting sob on exertion came yesterday because of elevated heart rate resting comfortably denies fevers OBJECTIVE: Vital Signs-as noted below Exam: General-alert and awake and oriented ENT-normal hearing Neck-no neck masses Lungs-cta b/l no wheezing or crackles Heart-s1 and s2 heard regular rate and rhythm no murmurs Abdomen-soft bowel sounds present non tender no distension Extremities- no erythema no edema Neuro-alert and awake moves extremities Lab data as noted below. ASSESSMENT & PLAN: 86 year old male presents to the ED from Dr. Adames's office for further evaluation of Afib with RVR. Patient diagnosed on 10/30 in PCPs office, started on Carvedilol but patient had progressive SOB and fatigue so he stopped medication last week. ATRIAL FIBRILLATION WITH RVR received iv Lopressor 15mg in ER chads score 2 did not tolerate Coreg as out patient currently on Lopressor po , digoxin and iv heparin starting on Coumadin appreciate cardiology recommendations will monitor VOLUME OVERLOAD ACUTE HYPOXIC RESPIRATORY FAILURE Most Likely secondary to Afib with RVR , Acute sytolc and diastolic chf, Pulmonary HTN. EF 40% received a dose of iv lasix cxr today better f/u echo as per cardiology will monitor ?UNDERLYING HTN BP elevated on arrival, 150s/100s currently on Lopressor. Will monitor COPD 64 pack year history On prn albuterol stable currently CKD STAGE 3 Crea 1.3, stable cr 1.4 today will f/u labs. PULMONARY HTN estimated pulmonary artery systolic pressure - 78 mmHg will f/u repeat echo VALVULAR DISEASE will f/u repeat echo and cardiology recommendations [place] NODULE incidental finding of outpatient CXR today 5mm nodule RUL will f/u with ct chest during this admission H/O BLADDER CA follows with Dr. Cabrera DVT PROPHYLAXIS: On Heparin gtt DISPOSITION monitor in tele Vital Signs: Date Time Temp Pulse Resp B/P Pulse Ox O2 Delivery O2 Flow Rate FiO2 11/20/16 15:50 36.7 100 18 124/80 95 Nasal Cannula 2.0 11/20/16 12:45 Nasal Cannula 2.0 11/20/16 12:13 36.8 83 16 131/64 98 11/20/16 11:53 80 11/20/16 09:00 Nasal Cannula 2.0 11/20/16 08:00 36.8 84 18 124/66 98 11/20/16 04:00 Nasal Cannula 2.0 11/20/16 03:58 36.6 92 20 128/72 95 Nasal Cannula 2.0 11/20/16 00:15 Nasal Cannula 2.0 11/20/16 00:15 95 Nasal Cannula 2.0 11/20/16 00:00 36.7 107 20 127/81 95 Nasal Cannula 2.0 11/19/16 20:15 96 Nasal Cannula 2.0 11/19/16 19:51 36.6 106 18 122/78 96 Nasal Cannula 2.0 11/19/16 18:12 103 11/19/16 16:58 36.7 125 20 144/91 96 Nasal Cannula 2.0 149/80 11/19/16 16:37 103 18 132/101 99 Nasal Cannula 3.0 Lab Results: Results Past 24 Hours Test 11/19/16 20:00 11/19/16 22:20 11/20/16 05:24 11/20/16 12:31 Range/Units Troponin I 0.032 0.031 0-0.045 ng/ml Activated Partial Thromboplast Time 96.1 114.8 64.3 21.0-31.0 SECONDS Partial Thromboplastin Ratio 3.7 4.4 2.5 White Blood Count 7.39 4.8-10.8 K/uL Red Blood Count 4.39 4.7-6.1 M/uL Hemoglobin 13.4 14.0-18.0 g/dL Hematocrit 42.1 42-52 % Mean Corpuscular Volume 95.9 80-100 fL Mean Corpuscular Hemoglobin 30.5 25-34 pg Mean Corpuscular Hemoglobin Concent 31.8 32-36 g/dl RDW Standard Deviation 49.7 36.4-46.3 fL RDW Coefficient of Variation 14.1 11.5-14.5 % Platelet Count 150 130-400 K/uL Mean Platelet Volume 11.3 7.4-10.4 fL Sodium Level 144 136-145 mmol/L Potassium Level 4.0 3.5-5.1 mmol/L Chloride Level 104 98-107 mmol/L Carbon Dioxide Level 35 21-32 mmol/L Anion Gap 5.0 3-11 mmol/L Blood Urea Nitrogen 22 7-18 mg/dl Creatinine 1.40 0.60-1.40 mg/dl Est Creatinine Clear Calc Drug Dose 40.0 ml/min Estimated GFR () 51.6 Estimated GFR (Non- 44.5 BUN/Creatinine Ratio 15.7 10-20 Random Glucose 97 70-99 mg/dl Calcium Level 8.7 8.5-10.1 mg/dl Magnesium Level 2.1 1.8-2.4 mg/dl
[2016-11-20] MEDS: DIGOXIN 0.125 MG TAB PO SCH (18:25)
[2016-11-21] VITALS (9 sets, daily range): BP systolic 129–153; BP diastolic 66–79; PULSE 84–107; TEMP 36.4–36.9; O2SAT 92–99
[2016-11-21 06:19] LABS: HEMATOCRIT 41.3 % (42-52); MEAN CORPUSCULAR HEMOGLOBIN 30.7 pg (25-34); MEAN PLATELET VOLUME 11.2 fL (7.4-10.4); PLATELET COUNT 132 K/uL (130-400)
[2016-11-21 07:26] LABS: PARTIAL THROMBOPLASTIN RATIO 3.2
[2016-11-21] MEDS: CALCIUM CARBONATE 1250MG TAB PO SCH (08:57)
[2016-11-21] MEDS: CHOLECALCIFEROL 1000 INTER.UNIT TAB PO SCH (08:57)
[2016-11-21] MEDS: ASPIRIN 81 MG ECTAB PO SCH (08:57)
[2016-11-21] MEDS: MULTIVITAMIN TAB PO SCH (08:57)
[2016-11-21] MEDS: METOPROLOL TARTRATE 25 MG TAB PO SCH ×2 (08:57→16:57)
--- NOTE | 2016-11-21 13:22 | PROGRESS NOTE ---
DATE: 11/21/2016 CARDIOLOGY CONSULTATION FOLLOWUP NOTE The patient was seen and examined. Chart, medications, telemetry reviewed. SUBJECTIVE: The patient feels improved today was up at bedside. Notes no dizziness or lightheadedness. Notes no syncope or near syncope. Heart rates were slower, but still mildly elevated. OBJECTIVE: VITAL SIGNS: Heart rate is 86, blood pressure is 139/69. NECK: Thin. There is no jugular venous distention. LUNGS: Reveal diffusely diminished breath sounds but are predominantly clear otherwise. CARDIOVASCULAR: Irreg Irreg with a grade 1/6 systolic murmur. ABDOMEN: Soft. EXTREMITIES: Reveal improved edema. LABORATORY DATA: Pending for today. PTT is 84. Hemoglobin is 13.2. BNP pending. INR pending. IMPRESSION: An 86-year-old male admitted with issues as follows: 1. Atrial fibrillation with rapid ventricular response. 2. Mildly decompensated congestive heart failure, acute, secondary to valvular disease, atrial fibrillation. 3. Ill-defined valvular disease with moderate to severe mitral and tricuspid insufficiency and possibly aortic stenosis. Plan echocardiogram later today and now heart rate is slowed. 4. Chronic obstructive lung disease, emphysema. RECOMMENDATIONS: Metoprolol be increased to 50 mg twice per day. Digoxin, continue the current dosing, total doses of digoxin received now will be 0.75 mg after p.m. dose today. The patient may well require intermittent diuretic dosing orally, pending on clinical course. Oxygen assessment will require this admission given history of emphysematous lung disease. Anticoagulation has been initiated with heparin with planned full anticoagulation orally with warfarin. MTDD
[2016-11-21] MEDS: HEPARIN 25,000 UNIT/500ML D5W 500 ML IV PRN ×2 (15:07→18:23)
--- NOTE | 2016-11-21 15:36 | ECHOCARDIOGRAM REPORT ---
*NOTICE TO RECEIVING CONSTITUTION PARTY AGENCY This information is strictly Confidential and protected under [place] law. [place] law prohibits you from making any further disclosure of this information unless further disclosure is expressly permitted by the written consent of the person to whom it pertains or is authorized by law. A general authorization for the release of medical or other information is not sufficient for this purpose. Hospital accepts no responsibility if the information is made available to any other person, INCLUDING THE PATIENT. Interpretation Summary * Name: MAZIN OLSEN Study Date: 11/21/2016 12:58 PM BP: 139/69 mmHg * Patient Location: C.2T\S\E222\S\1 HR: 88 * : 1930 (M/d/yyyy) Gender: Male Height: 72 in * Age: 86 yrs Ethnicity: [place] Weight: 182 lb * Ordering Physician: Mauricio Kim MD, [facility] * Referring Physician: Ino Adames D.O. * Performed By: [facility] * * Reason For Study: VALVULAR HEART DISEASE * BSA: 2.0 m2 * -- Conclusions -- * The left ventricle is normal in size. * There is moderate concentric left ventricular hypertrophy. * Left ventricular systolic function is normal. * The left ventricular wall motion is normal. * Ejection Fraction = 65-70%. * The right ventricular cavity size is enlarged (proximal parasternal long axis right ventricular outflow tract dimension >3.3 cm). * The left atrium is moderately dilated. * The right atrium is severely dilated. * The aortic valve is trileaflet. * The aortic valve leaflets are heavily calclified. 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 * There is mild mitral regurgitation. * There is mild tricuspid regurgitation. * Right ventricular systolic pressure is elevated at 50-60mmHg. Procedure Details * A complete two-dimensional transthoracic echocardiogram was performed (2D, M-mode, Doppler and color flow Doppler). Left Ventricle * The left ventricle is normal in size. * There is moderate concentric left ventricular hypertrophy. * Left ventricular systolic function is normal. * Ejection Fraction = 65-70%. * The left ventricular wall motion is normal. Right Ventricle * The right ventricular cavity size is enlarged (proximal parasternal long axis right ventricular outflow tract dimension >3.3 cm). Atria * The left atrium is moderately dilated. * The right atrium is severely dilated. * No ASD detected; PFO is not assessed. Mitral Valve * There is moderate focal calcification of the posterior mitral valve annulus. * There is no mitral valve stenosis. * There is mild mitral regurgitation. Tricuspid Valve * The tricuspid valve anatomy is normal. * There is no tricuspid stenosis. * There is mild tricuspid regurgitation. * Right ventricular systolic pressure is elevated at 50-60mmHg. Aortic Valve * The aortic valve is trileaflet. * The aortic valve leaflets are heavily calclified. 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 * No aortic regurgitation is present. Pulmonic Valve * The pulmonic valve is not well visualized. Great Vessels * The aortic root is normal size. Pericardium/Pleural * Small pericardial effusion. Great Vessels * The inferior vena cava is mildly dilated. MMode 2D Measurements and Calculations IVSd 1.1 cm IVSs 1.5 cm LVIDd 4.1 cm LVIDs 3.0 cm LVPWd 1.3 cm LVPWs 1.4 cm IVS/LVPW 0.86 FS 25.8 % EDV(Teich) 72.3 ml ESV(Teich) 35.2 ml EF(Teich) 51.3 % EDV(cubed) 66.6 ml ESV(cubed) 27.2 ml EF(cubed) 59.2 % % IVS thick 34.3 % % LVPW thick 2.9 % LV mass(C)d 175.3 grams LV mass(C)dI 85.7 grams/m\S\2 LV mass(C)s 148.6 grams LV mass(C)sI 72.6 grams/m\S\2 SV(Teich) 37.1 ml SI(Teich) 18.1 ml/m\S\2 SV(cubed) 39.5 ml SI(cubed) 19.3 ml/m\S\2 Ao root diam 4.0 cm Ao root area 12.7 cm\S\2 LA dimension 4.5 cm LA/Ao 1.1 LVOT diam 1.8 cm LVOT area 2.6 cm\S\2 LVAd ap4 20.9 cm\S\2 LVLd ap4 6.6 cm EDV(MOD-sp4) 55.5 ml EDV(sp4-el) 56.7 ml LVAs ap4 13.2 cm\S\2 LVLs ap4 5.6 cm ESV(MOD-sp4) 26.6 ml ESV(sp4-el) 26.4 ml EF(MOD-sp4) 52.1 % EF(sp4-el) 53.4 % LVAd ap2 23.4 cm\S\2 LVLd ap2 6.7 cm EDV(MOD-sp2) 69.5 ml EDV(sp2-el) 69.7 ml LVAs ap2 12.9 cm\S\2 LVLs ap2 5.7 cm ESV(MOD-sp2) 24.5 ml ESV(sp2-el) 25.0 ml EF(MOD-sp2) 64.8 % EF(sp2-el) 64.1 % LVLd %diff 1.7 % EDV(MOD-bp) 62.3 ml LVLs %diff 0.57 % ESV(MOD-bp) 25.4 ml EF(MOD-bp) 59.3 % SV(MOD-sp4) 28.9 ml SI(MOD-sp4) 14.1 ml/m\S\2 SV(MOD-sp2) 45.1 ml SI(MOD-sp2) 22.0 ml/m\S\2 SV(MOD-bp) 37.0 ml SI(MOD-bp) 18.1 ml/m\S\2 SV(sp4-el) 30.3 ml SI(sp4-el) 14.8 ml/m\S\2 SV(sp2-el) 44.7 ml SI(sp2-el) 21.8 ml/m\S\2 Doppler Measurements and Calculations MV E max filippo 152.1 cm/sec MV A max filippo 41.0 cm/sec MV E/A 3.7 MV P1/2t max filippo 167.1 cm/sec MV P1/2t 79.8 msec MVA(P1/2t) 2.8 cm\S\2 MV dec slope 613.7 cm/sec\S\2 MV dec time 0.25 sec Ao V2 max 274.3 cm/sec Ao max PG 30.2 mmHg Ao max PG (full) 26.5 mmHg Ao V2 mean 184.0 cm/sec Ao mean PG 15.8 mmHg Ao mean PG (full) 13.9 mmHg Ao V2 VTI 48.7 cm ELEN(I,A) 0.98 cm\S\2 ELEN(I,D) 0.98 cm\S\2 ELEN(V,A) 0.91 cm\S\2 ELEN(V,D) 0.91 cm\S\2 AI max filippo 290.7 cm/sec AI max PG 33.8 mmHg AI dec slope 179.5 cm/sec\S\2 AI P1/2t 474.5 msec LV V1 max PG 3.6 mmHg LV V1 mean PG 1.9 mmHg LV V1 max 95.4 cm/sec LV V1 mean 64.8 cm/sec LV V1 VTI 18.3 cm SV(Ao) 618.6 ml SI(Ao) 302.2 ml/m\S\2 SV(LVOT) 47.8 ml SI(LVOT) 23.4 ml/m\S\2 TR max filippo 344.9 cm/sec
[2016-11-21 15:47] LABS: BUN/CREATININE RATIO 18.8 (10-20); CALCIUM 8.6 mg/dl (8.5-10.1); CREATININE 1.4 mg/dl (0.60-1.40); POTASSIUM 4.6 mmol/L (3.5-5.1)
[2016-11-21 15:53] LABS: PARTIAL THROMBOPLASTIN RATIO 2.1
--- NOTE | 2016-11-21 16:17 | Progress Note ---
Internal Med Progress Note Date of Service: Nov 21, 2016. Provider Documentation: SUBJECTIVE: slept fine ambulating in room ok denies any sob now afebrile eating ok OBJECTIVE: Vital Signs-as noted below Exam: General-alert and awake and oriented ENT-normal hearing Neck-no neck masses Lungs-cta b/l no wheezing or crackles Heart-s1 and s2 heard irregular rate and rhythm no murmurs Abdomen-soft bowel sounds present non tender no distension Extremities- no erythema no edema Neuro-alert and awake moves extremities Lab data as noted below. ASSESSMENT & PLAN: 86 year old male presents to the ED from Dr. Adames's office for further evaluation of Afib with RVR. Patient diagnosed on 10/30 in PCPs office, started on Carvedilol but patient had progressive SOB and fatigue so he stopped medication last week. ATRIAL FIBRILLATION WITH RVR received iv Lopressor 15mg in ER chads score 2 did not tolerate Coreg as out patient currently on Lopressor po , digoxin and iv heparin starting on Coumadin appreciate cardiology recommendations Lopressor dose changed to 50mg bid will monitor VOLUME OVERLOAD ACUTE HYPOXIC RESPIRATORY FAILURE Most Likely secondary to Afib with RVR , Acute sytolc and diastolic chf, Pulmonary HTN. EF 40% received a dose of iv lasix cxr today better f/u echo as per cardiology two step prior to discharge will monitor ?UNDERLYING HTN BP elevated on arrival, 150s/100s currently on Lopressor. Will monitor COPD 64 pack year history On prn albuterol stable currently CKD STAGE 3 Crea 1.3, stable cr 1.4 today will f/u labs. PULMONARY HTN estimated pulmonary artery systolic pressure - 78 mmHg will f/u repeat echo VALVULAR DISEASE will f/u repeat echo and cardiology recommendations LAYTON NODULE incidental finding of outpatient CXR today 5mm nodule RUL will f/u with ct chest during this admission H/O BLADDER CA follows with Dr. Cabrera DVT PROPHYLAXIS: On Heparin gtt DISPOSITION monitor in tele pt/ot to be determined Vital Signs: Date Time Temp Pulse Resp B/P Pulse Ox O2 Delivery O2 Flow Rate FiO2 11/21/16 15:32 36.4 107 20 151/70 93 Nasal Cannula 2.0 11/21/16 15:20 94 94 11/21/16 12:08 36.9 86 18 139/69 98 11/21/16 12:00 Nasal Cannula 2.0 11/21/16 08:31 36.8 98 18 140/66 99 11/21/16 08:00 Nasal Cannula 2.0 11/21/16 04:00 Nasal Cannula 2.0 11/21/16 03:50 36.5 94 18 143/73 97 Nasal Cannula 2.0 11/21/16 00:00 Nasal Cannula 2.0 11/20/16 23:40 36.4 104 19 133/84 95 Nasal Cannula 2.0 11/20/16 20:00 Nasal Cannula 2.0 11/20/16 19:30 36.8 105 16 148/80 95 Nasal Cannula 2.0 11/20/16 18:25 100 11/20/16 16:30 Nasal Cannula 2.0 Lab Results: Results Past 24 Hours Test 11/21/16 06:00 11/21/16 06:50 11/21/16 15:20 Range/Units White Blood Count 8.80 4.8-10.8 K/uL Red Blood Count 4.30 4.7-6.1 M/uL Hemoglobin 13.2 14.0-18.0 g/dL Hematocrit 41.3 42-52 % Mean Corpuscular Volume 96.0 80-100 fL Mean Corpuscular Hemoglobin 30.7 25-34 pg Mean Corpuscular Hemoglobin Concent 32.0 32-36 g/dl RDW Standard Deviation 48.7 36.4-46.3 fL RDW Coefficient of Variation 13.9 11.5-14.5 % Platelet Count 132 130-400 K/uL Mean Platelet Volume 11.2 7.4-10.4 fL Activated Partial Thromboplast Time 84.0 21.0-31.0 SECONDS Partial Thromboplastin Ratio 3.2 Sodium Level 142 136-145 mmol/L Potassium Level 4.6 3.5-5.1 mmol/L Chloride Level 102 98-107 mmol/L Carbon Dioxide Level 38 21-32 mmol/L Anion Gap 2.0 3-11 mmol/L Blood Urea Nitrogen 26 7-18 mg/dl Creatinine 1.40 0.60-1.40 mg/dl Est Creatinine Clear Calc Drug Dose 40.0 ml/min Estimated GFR () 51.6 Estimated GFR (Non- 44.5 BUN/Creatinine Ratio 18.8 10-20 Random Glucose 107 70-99 mg/dl Calcium Level 8.6 8.5-10.1 mg/dl
[2016-11-21] MEDS: DIGOXIN 0.125 MG TAB PO SCH (16:56)
[2016-11-21] MEDS: WARFARIN SOD 5 MG TAB PO SCH (16:57)
[2016-11-22] VITALS (7 sets, daily range): BP systolic 127–164; BP diastolic 69–84; PULSE 79–96; TEMP 36.3–36.8; O2SAT 92–99
[2016-11-22 05:16] LABS: BUN/CREATININE RATIO 20.1 (10-20); CALCIUM 8.2 mg/dl (8.5-10.1); CREATININE 1.2 mg/dl (0.60-1.40); MAGNESIUM 2.3 mg/dl (1.8-2.4); POTASSIUM 4.2 mmol/L (3.5-5.1)
[2016-11-22 05:26] LABS: INR 1.1 (0.9-1.1); PARTIAL THROMBOPLASTIN RATIO 2.4; PROTHROMBIN TIME (PATIENT) 11.4 SECONDS (9.0-12.0)
[2016-11-22] MEDS: METOPROLOL TARTRATE 25 MG TAB PO SCH ×2 (09:00→17:22)
[2016-11-22] MEDS: CHOLECALCIFEROL 1000 INTER.UNIT TAB PO SCH (09:01)
[2016-11-22] MEDS: MULTIVITAMIN TAB PO SCH (09:01)
[2016-11-22] MEDS: ASPIRIN 81 MG ECTAB PO SCH (09:01)
[2016-11-22] MEDS: CALCIUM CARBONATE 1250MG TAB PO SCH (09:01)
--- NOTE | 2016-11-22 10:01 | Cardiology Follow-Up ---
Subjective General Date of Service: Nov 22, 2016. Chief Complaint: follow up shortenss of breath Pt evaluation today including: conversation w/ patient, physical exam, chart review, review of studies History of Present Illness The patient is a 86 year old male seen in follow up. Pt resting comfortably. He states he walked in hallway yesterday and did reasonably well. Telemetry reveals AF, rates better controlled, in the 70-80 bpm range at rest ( improved compared to 120s-130s on presentation to the outpt clinic prior to admission). Allergies Coded Allergies: No Known Allergies (Unverified , `, 11/19/16) Social History Smoking Status: Former Smoker Hx Tobacco Use In Past Year?: No Hx Alcohol Use - Type And Amou: Yes (BEER ON OCCASION) Hx Substance Use - Type And Am: No Problem List Medical Problems: (1) Atrial fibrillation with rapid ventricular response Status: Acute (2) COPD (chronic obstructive pulmonary disease) Status: Chronic (3) History of bladder cancer Status: Chronic (4) History of prostate cancer Status: Chronic (5) Hypertension Status: Chronic (6) Pulmonary hypertension Status: Acute Physical Exam Vital Signs Last Vital Signs Documentation Date Time Temp Pulse Resp B/P Pulse Ox O2 Delivery O2 Flow Rate FiO2 11/22/16 07:28 36.8 79 18 150/77 96 11/22/16 04:00 Nasal Cannula 2.0 Physical Exam Constitutional: Level of Distress: NAD Neck: supple Lungs: Auscultation: pertinent finding (mildly decreased BS at bases) Cardiovascular: Heart Auscultation: II/ CHRIS, irregular rate rhythm Abdomen: Inspection & Palpation: soft, non-distended Extremities: no edema Neurologic: Gait & Station: pertinent finding (no focal deficits, follows commands ) Assessment and Plan Assessment and Plan Impression: 86 year old male 1. Acute decompensation heart failure due to diastolic dysfunction, AF, and valvular heart disease -Repeat echo performed this admission after ventricular rate improved , revealed normal LVEF, mild MR, mild TR, moderate to severe , mod to severe pulmonary HTN CXR 11/20 with CHF 2. h/o remote past GI bleed, H/Hct stable on heparin. Plan: 1. Rate control with metoprolol tartrate 50 mb BID and digoxin. 2. Furosemide 20 mg IV x 1 now, then 20 mg PO daily, monitor BMP 3. Stroke prevention, continue heparin bridge, coumadin load. Remain on telemetry . Increase activity as tolerated, if he continued clinical improvement, hopeful discharge when INR ~2. Laboratory Results Last 24 Hours Test 11/21/16 15:20 11/22/16 04:50 Activated Partial Thromboplast Time 53.9 SECONDS 61.5 SECONDS Partial Thromboplastin Ratio 2.1 2.4 Sodium Level 142 mmol/L 144 mmol/L Potassium Level 4.6 mmol/L 4.2 mmol/L Chloride Level 102 mmol/L 104 mmol/L Carbon Dioxide Level 38 mmol/L 38 mmol/L Anion Gap 2.0 mmol/L 2.0 mmol/L Blood Urea Nitrogen 26 mg/dl 24 mg/dl Creatinine 1.40 mg/dl 1.20 mg/dl Est Creatinine Clear Calc Drug Dose 40.0 ml/min 46.7 ml/min Estimated GFR () 51.6 62.2 Estimated GFR (Non- 44.5 53.7 BUN/Creatinine Ratio 18.8 20.1 Random Glucose 107 mg/dl 102 mg/dl Calcium Level 8.6 mg/dl 8.2 mg/dl Prothrombin Time 11.4 SECONDS Prothromb Time International Ratio 1.1 Magnesium Level 2.3 mg/dl
[2016-11-22] MEDS ORDERED: FUROSEMIDE INJ 20 MG in SYRINGE 0 ML IV SCH (11:00)
--- NOTE | 2016-11-22 16:28 | Progress Note ---
Internal Med Progress Note Date of Service: Nov 22, 2016. Provider Documentation: SUBJECTIVE: feeling much better ambulated ok denies chest pain or sob eating ok OBJECTIVE: Vital Signs-as noted below Exam: General-alert and awake and oriented ENT-normal hearing Neck-no neck masses Lungs-cta b/l no wheezing or crackles Heart-s1 and s2 heard irregular rate and rhythm no murmurs Abdomen-soft bowel sounds present non tender no distension Extremities- no erythema no edema Neuro-alert and awake moves extremities Lab data as noted below. ASSESSMENT & PLAN: 86 year old male presents to the ED from Dr. Adames's office for further evaluation of Afib with RVR. Patient diagnosed on 10/30 in PCPs office, started on Carvedilol but patient had progressive SOB and fatigue so he stopped medication last week. ATRIAL FIBRILLATION WITH RVR received iv Lopressor 15mg in ER chads score 2 did not tolerate Coreg as out patient currently on Lopressor po , digoxin and iv heparin starting on Coumadin appreciate cardiology recommendations Lopressor dose changed to 50mg bid continue to monitor VOLUME OVERLOAD ACUTE HYPOXIC RESPIRATORY FAILURE Most Likely secondary to Afib with RVR , Acute sytolc and diastolic chf, Pulmonary HTN. EF 40% received a dose of iv lasix cxr today better repeat echo shows -revealed normal LVEF, mild MR, mild TR, moderate to severe , mod to severe pulmonary HTN two step prior to discharge one more dose of iv Lasix today and started on po Lasix daily. will monitor ?UNDERLYING HTN BP elevated on arrival, 150s/100s currently on Lopressor. Will monitor COPD 64 pack year history On prn albuterol stable currently CKD STAGE 3 Crea 1.3, stable cr 1.2 today will f/u labs. PULMONARY HTN estimated pulmonary artery systolic pressure - 78 mmHg VALVULAR DISEASE will f/u repeat echo and cardiology recommendations mild MR and TR. Moderate As LAYTON NODULE incidental finding of outpatient CXR today 5mm nodule RUL will f/u with ct chest during this admission H/O BLADDER CA follows with Dr. Cabrera DVT PROPHYLAXIS: On Heparin gtt and coumadin DISPOSITION monitor in tele pt/ot to be determined Vital Signs: Date Time Temp Pulse Resp B/P Pulse Ox O2 Delivery O2 Flow Rate FiO2 11/22/16 15:37 36.4 96 16 145/74 96 2.0 11/22/16 12:00 Nasal Cannula 2.0 11/22/16 11:48 36.8 79 18 148/72 99 11/22/16 08:00 Nasal Cannula 2.0 11/22/16 07:28 36.8 79 18 150/77 96 11/22/16 04:00 Nasal Cannula 2.0 11/22/16 04:00 36.8 95 19 150/69 97 Nasal Cannula 2.0 11/22/16 00:00 92 Nasal Cannula 2.0 11/21/16 23:30 36.9 84 19 134/79 95 Nasal Cannula 2.0 11/21/16 20:37 36.6 91 20 129/72 95 Nasal Cannula 2.0 11/21/16 20:00 92 Room Air 2.0 11/21/16 16:56 78 Lab Results: Results Past 24 Hours Test 11/22/16 04:50 Range/Units Prothrombin Time 11.4 9.0-12.0 SECONDS Prothromb Time International Ratio 1.1 0.9-1.1 Activated Partial Thromboplast Time 61.5 21.0-31.0 SECONDS Partial Thromboplastin Ratio 2.4 Sodium Level 144 136-145 mmol/L Potassium Level 4.2 3.5-5.1 mmol/L Chloride Level 104 98-107 mmol/L Carbon Dioxide Level 38 21-32 mmol/L Anion Gap 2.0 3-11 mmol/L Blood Urea Nitrogen 24 7-18 mg/dl Creatinine 1.20 0.60-1.40 mg/dl Est Creatinine Clear Calc Drug Dose 46.7 ml/min Estimated GFR () 62.2 Estimated GFR (Non- 53.7 BUN/Creatinine Ratio 20.1 10-20 Random Glucose 102 70-99 mg/dl Calcium Level 8.2 8.5-10.1 mg/dl Magnesium Level 2.3 1.8-2.4 mg/dl
[2016-11-22] MEDS: DIGOXIN 0.125 MG TAB PO SCH (17:21)
[2016-11-22] MEDS: WARFARIN SOD 5 MG TAB PO SCH (17:21)
[2016-11-23 03:35] VITALS: BP 167/87; PULSE 82; TEMP 36.6; O2SAT 95
[2016-11-23] MEDS: HEPARIN 25,000 UNIT/500ML D5W 500 ML IV PRN (04:43)
[2016-11-23 05:25] LABS: HEMATOCRIT 41.3 % (42-52); MEAN CELL VOLUME 94.5 fL (80-100); MEAN CORPUSCULAR HEMOGLOBIN 30.2 pg (25-34); MEAN PLATELET VOLUME 11.3 fL (7.4-10.4); PLATELET COUNT 122 K/uL (130-400); RED BLOOD COUNT 4.37 M/uL (4.7-6.1); WHITE BLOOD COUNT 7.51 K/uL (4.8-10.8)
[2016-11-23 05:58] LABS: PARTIAL THROMBOPLASTIN RATIO 2.1
[2016-11-23 06:05] LABS: INR 1.1 (0.9-1.1); PROTHROMBIN TIME (PATIENT) 11.5 SECONDS (9.0-12.0)
[2016-11-23 07:36] VITALS: BP 169/76; PULSE 88; TEMP 36.6; O2SAT 96
[2016-11-23] MEDS: METOPROLOL TARTRATE 25 MG TAB PO SCH ×2 (08:29→16:42)
[2016-11-23] MEDS: FUROSEMIDE 20 MG TAB PO SCH (08:29)
[2016-11-23] MEDS: ASPIRIN 81 MG ECTAB PO SCH (08:29)
[2016-11-23] MEDS: MULTIVITAMIN TAB PO SCH (08:30)
[2016-11-23] MEDS: CALCIUM CARBONATE 1250MG TAB PO SCH (08:30)
[2016-11-23] MEDS: CHOLECALCIFEROL 1000 INTER.UNIT TAB PO SCH (08:30)
[2016-11-23] MEDS ORDERED: FUROSEMIDE INJ 20 MG in SYRINGE 0 ML IV SCH (09:00)
[2016-11-23] MEDS ORDERED: AMLODIPINE BESYLATE 5 MG TAB PO ONE (11:06)
--- NOTE | 2016-11-23 11:06 | Cardiology Follow-Up ---
Subjective General Date of Service: Nov 23, 2016. Chief Complaint: follow up shortenss of breath History of Present Illness Pt seen and examined, states that he "has no zip", feeling run down. Denies cp, sob, palpitations, lightheadedness or dizziness. Tele reviewed: atrial fibrillation rate controlled. Allergies Coded Allergies: No Known Allergies (Unverified , `, 11/19/16) Social History Smoking Status: Former Smoker Hx Tobacco Use In Past Year?: No Hx Alcohol Use - Type And Amou: Yes (BEER ON OCCASION) Hx Substance Use - Type And Am: No Problem List Medical Problems: (1) Atrial fibrillation with rapid ventricular response Status: Acute (2) COPD (chronic obstructive pulmonary disease) Status: Chronic (3) History of bladder cancer Status: Chronic (4) History of prostate cancer Status: Chronic (5) Hypertension Status: Chronic (6) Pulmonary hypertension Status: Acute Review of Systems Respiratory: No cough, No dyspnea at rest, No dyspnea on exertion, No hemoptysis, No problem reported, No see HPI, No shortness of breath, No sputum, No wheezing Cardiac: No PND, No chest pain, No claudication, No edema, No orthopnea, No palpitations, No problem reported, No see HPI Physical Exam Vital Signs Last Vital Signs Documentation Date Time Temp Pulse Resp B/P Pulse Ox O2 Delivery O2 Flow Rate FiO2 11/23/16 08:00 Nasal Cannula 2.0 Humidified Oxygen 11/23/16 07:36 36.6 88 18 169/76 96 Physical Exam Constitutional: Level of Distress: NAD Head: normocephalic, atraumatic ENMT: normal ENT inspection, hearing grossly normal, TMs normal, pharynx normal Neck: supple, trachea midline Lungs: Auscultation: pertinent finding (mildly decreased BS at bases) Cardiovascular: Heart Auscultation: II/ CHRIS, irregular rate rhythm Abdomen: Inspection & Palpation: soft, non-distended Extremities: no cyanosis, no edema, no clubbing Neurologic: Gait & Station: pertinent finding (no focal deficits, follows commands ) Assessment and Plan Assessment and Plan Impression: 86 year old male 1. Acute decompensation heart failure due to diastolic dysfunction, AF, and valvular heart disease -Repeat echo performed this admission after ventricular rate improved , revealed normal LVEF, mild MR, mild TR, moderate to severe , mod to severe pulmonary HTN CXR 11/20 with CHF 2. h/o remote past GI bleed, H/Hct stable on heparin. Plan: 1. Rate control with metoprolol tartrate 50 mb BID and digoxin. 2. Furosemide 20 mg PO daily, monitor BMP 3. Stroke prevention, continue heparin bridge, coumadin load. 4. start amlodipine 2.5mg daily for bp control Laboratory Results Last 24 Hours Test 11/23/16 05:08 White Blood Count 7.51 K/uL Red Blood Count 4.37 M/uL Hemoglobin 13.2 g/dL Hematocrit 41.3 % Mean Corpuscular Volume 94.5 fL Mean Corpuscular Hemoglobin 30.2 pg Mean Corpuscular Hemoglobin Concent 32.0 g/dl RDW Standard Deviation 46.7 fL RDW Coefficient of Variation 13.5 % Platelet Count 122 K/uL Mean Platelet Volume 11.3 fL Prothrombin Time 11.5 SECONDS Prothromb Time International Ratio 1.1 Activated Partial Thromboplast Time 55.3 SECONDS Partial Thromboplastin Ratio 2.1
--- NOTE | 2016-11-23 11:25 | DIAGNOSTIC IMAGING REPORT ---
SINGLE VIEW CHEST CLINICAL HISTORY: Dyspnea. FINDINGS: An AP, portable, upright chest radiograph is compared to study dated 11/20/2016. The examination is significantly degraded by portable technique and patient rotation. The heart is enlarged and there is atherosclerotic calcification of the thoracic aorta. The pulmonary vasculature is noncongested. Advanced emphysema and interstitial thickening are identified. There is airspace consolidation at the right lung base with a small right pleural effusion, which appears worsened from 11/20/2016. Patchy airspace opacities are now seen at the left lung base. No pneumothorax is seen. The skeletal structures are osteopenic. Degenerative change is noted throughout the thoracic spine. IMPRESSION: 1. Cardiomegaly and severe emphysema. 2. There is airspace consolidation at the right lung base with a small right pleural effusion, which appears modestly worsened from 11/20/2016. Airspace opacities are now also seen at the left lung base. Correlate clinically for evidence of aspiration pneumonitis/pneumonia. Radiographic follow-up to resolution is recommended. Electronically signed by: Abel Valdovinos M.D. 11/23/2016 11:22 AM Dictated Date/Time: 11/23/2016 11:21 AM
[2016-11-23 12:03] VITALS: BP 140/76; PULSE 86; TEMP 36.9; O2SAT 96
[2016-11-23] MEDS ORDERED: AMPICILLIN/SULBACTAM CONSULT ACTIVE PRN ×2 (12:30)
[2016-11-23] MEDS ORDERED: DOXYCYCLINE HYCLATE 100 MG CAP PO ONE (12:30)
[2016-11-23] MEDS: AMPICILLIN/SULBACTAM SOD INJ 3,000 MG in SODIUM CHLORIDE 0.9% 100ML 100 ML IV SCH ×2 (13:47→18:27)
--- NOTE | 2016-11-23 14:41 | Progress Note ---
Internal Med Progress Note Date of Service: Nov 23, 2016. Provider Documentation: SUBJECTIVE: says feeling sob has cough with sputum afebrile no chest pain eating ok OBJECTIVE: Vital Signs-as noted below Exam: General-alert and awake and oriented ENT-normal hearing Neck-no neck masses Lungs-cta b/l no wheezing or crackles Heart-s1 and s2 heard irregular rate and rhythm no murmurs Abdomen-soft bowel sounds present non tender no distension Extremities- no erythema no edema Neuro-alert and awake moves extremities Lab data as noted below. ASSESSMENT & PLAN: 86 year old male presents to the ED from Dr. Adames's office for further evaluation of Afib with RVR. Patient diagnosed on 10/30 in PCPs office, started on Carvedilol but patient had progressive SOB and fatigue so he stopped medication last week. ATRIAL FIBRILLATION WITH RVR received iv Lopressor 15mg in ER chads score 2 did not tolerate Coreg as out patient currently on Lopressor po , digoxin and iv heparin starting on Coumadin appreciate cardiology recommendations Lopressor dose changed to 50mg bid rates under control Coumadin dose changed to 7.5mg daily f/u inr in am VOLUME OVERLOAD ACUTE HYPOXIC RESPIRATORY FAILURE Most Likely secondary to Afib with RVR , Acute sytolc and diastolic chf, Pulmonary HTN. EF 40% received a dose of iv lasix cxr today better repeat echo shows -revealed normal LVEF, mild MR, mild TR, moderate to severe , mod to severe pulmonary HTN two step prior to discharge one more dose of iv Lasix today and started on po Lasix daily. will monitor Pneumonia cough with sputun cxr possible bibasilar consolidation possible aspiration pneumonitis started on unasyn and doxy speech evaluation ?UNDERLYING HTN BP elevated on arrival, 150s/100s currently on Lopressor. Will monitor COPD 64 pack year history On prn albuterol stable currently CKD STAGE 3 Crea 1.3, stable cr 1.2 will f/u labs. PULMONARY HTN estimated pulmonary artery systolic pressure - 78 mmHg VALVULAR DISEASE will f/u repeat echo and cardiology recommendations mild MR and TR. Moderate As LAYTON NODULE incidental finding of outpatient CXR today 5mm nodule RUL will f/u with ct chest during this admission H/O BLADDER CA follows with Dr. Cabrera DVT PROPHYLAXIS: On Heparin gtt and coumadin DISPOSITION monitor in tele pt/ot to be determined Vital Signs: Date Time Temp Pulse Resp B/P Pulse Ox O2 Delivery O2 Flow Rate FiO2 11/23/16 12:03 36.9 86 18 140/76 96 Nasal Cannula 3.0 11/23/16 12:00 Nasal Cannula 2.0 Humidified Oxygen 11/23/16 08:00 Nasal Cannula 2.0 Humidified Oxygen 11/23/16 07:36 36.6 88 18 169/76 96 11/23/16 04:00 Nasal Cannula 2.0 11/23/16 03:35 36.6 82 19 167/87 95 Nasal Cannula 2.0 11/23/16 00:00 Nasal Cannula 2.0 11/22/16 23:36 36.3 87 19 164/84 95 Nasal Cannula 2.0 11/22/16 20:00 Nasal Cannula 2.0 11/22/16 19:22 36.4 81 16 127/73 92 Nasal Cannula 2.0 11/22/16 17:21 75 11/22/16 16:00 Nasal Cannula 2.0 11/22/16 15:37 36.4 96 16 145/74 96 2.0 Lab Results: Results Past 24 Hours Test 11/23/16 05:08 Range/Units White Blood Count 7.51 4.8-10.8 K/uL Red Blood Count 4.37 4.7-6.1 M/uL Hemoglobin 13.2 14.0-18.0 g/dL Hematocrit 41.3 42-52 % Mean Corpuscular Volume 94.5 80-100 fL Mean Corpuscular Hemoglobin 30.2 25-34 pg Mean Corpuscular Hemoglobin Concent 32.0 32-36 g/dl RDW Standard Deviation 46.7 36.4-46.3 fL RDW Coefficient of Variation 13.5 11.5-14.5 % Platelet Count 122 130-400 K/uL Mean Platelet Volume 11.3 7.4-10.4 fL Prothrombin Time 11.5 9.0-12.0 SECONDS Prothromb Time International Ratio 1.1 0.9-1.1 Activated Partial Thromboplast Time 55.3 21.0-31.0 SECONDS Partial Thromboplastin Ratio 2.1
[2016-11-23 16:02] VITALS: BP 155/90; PULSE 77; TEMP 36.3; O2SAT 92
--- NOTE | 2016-11-23 16:33 | DIAGNOSTIC IMAGING REPORT ---
CT SCAN OF THE CHEST WITHOUT IV CONTRAST CLINICAL HISTORY: Pulmonary nodule. Dyspnea. COMPARISON STUDY: Chest x-ray dated 11/23/2016. Abdominal CT dated 09/07/2015. TECHNIQUE: CT scan of the thorax was performed from the thoracic inlet to the upper abdomen. Images are reviewed in the axial, sagittal, and coronal planes. IV contrast was not administered for this examination. CT DOSE: 259.43 mGy.cm FINDINGS: Thyroid: Atrophic. Thoracic aorta: There is advanced atherosclerotic calcification of the thoracic aorta, which is normal in caliber and demonstrates standard 3-vessel arch anatomy. Heart: The heart is top normal in size and without pericardial effusion. The coronary arteries and mitral annulus are densely calcified. The main pulmonary arteries are dilated suggesting pulmonary artery hypertension. Lungs and pleural spaces: There are small to moderate pleural effusions. There is patchy airspace consolidation at the right lung base. Advanced emphysema is observed. Layering secretions are present within the trachea. Mediastinum: There is bulky mediastinal lymphadenopathy. The largest node is in the right paratracheal region on image #104 and measures approximately 4 x 3 cm. Prevascular lymph nodes measure up to 1.5 cm in short axis. Sandi: Not well assessed without IV contrast. Lower neck: Right cervical clavicular lymphadenopathy is suspected. A probable node in image #1 measures 2.4 x 1.8 cm. Axillae: There is no axillary lymphadenopathy. Upper abdomen: There is a small hiatal hernia. The partially imaged kidneys demonstrate cortical atrophy. The spleen is normal in size. Skeletal structures: The skeletal structures are osteopenic. No lytic or blastic bony lesions are seen. IMPRESSION: 1. Advanced emphysema. 2. Small to moderate pleural effusions. 3. There is patchy airspace consolidation at the right lung base, typical in appearance for aspiration pneumonitis/pneumonia. Clinical correlation will be required and radiographic follow-up to resolution is recommended. 4. There is bulky mediastinal lymphadenopathy, as well as probable right supraclavicular lymphadenopathy. This is nonspecific, but the appearance suggests a lymphoproliferative process such as lymphoma. 5. Additional findings as detailed above. Electronically signed by: Abel Valdovinos M.D. 11/23/2016 4:31 PM Dictated Date/Time: 11/23/2016 4:10 PM
[2016-11-23] MEDS: DIGOXIN 0.125 MG TAB PO SCH (16:41)
[2016-11-23] MEDS: WARFARIN SOD 7.5 MG TAB PO SCH (16:41)
[2016-11-23 19:03] VITALS: BP 150/69; PULSE 78; TEMP 36.6; O2SAT 95
[2016-11-23] MEDS: DOXYCYCLINE HYCLATE 100 MG CAP PO SCH (21:21)
[2016-11-23 23:48] VITALS: BP 157/72; PULSE 82; TEMP 36.7; O2SAT 97
[2016-11-24] MEDS: AMPICILLIN/SULBACTAM SOD INJ 3,000 MG in SODIUM CHLORIDE 0.9% 100ML 100 ML IV SCH ×4 (01:05→20:02)
[2016-11-24 03:44] VITALS: BP 157/81; PULSE 83; TEMP 36.6; O2SAT 93
[2016-11-24 05:03] LABS: INR 1.2 (0.9-1.1); PARTIAL THROMBOPLASTIN RATIO 2.3; PROTHROMBIN TIME (PATIENT) 12.4 SECONDS (9.0-12.0)
[2016-11-24 07:29] VITALS: BP 163/79; PULSE 95; TEMP 36.4; O2SAT 94
[2016-11-24] MEDS: DOXYCYCLINE HYCLATE 100 MG CAP PO SCH ×2 (07:34→20:01)
[2016-11-24] MEDS: METOPROLOL TARTRATE 25 MG TAB PO SCH ×2 (07:35→17:28)
[2016-11-24] MEDS: MULTIVITAMIN TAB PO SCH (07:35)
[2016-11-24] MEDS: ASPIRIN 81 MG ECTAB PO SCH (07:36)
[2016-11-24] MEDS: FUROSEMIDE 20 MG TAB PO SCH (07:36)
[2016-11-24] MEDS: AMLODIPINE BESYLATE 5 MG TAB PO SCH (07:36)
[2016-11-24] MEDS: CALCIUM CARBONATE 1250MG TAB PO SCH (07:36)
[2016-11-24] MEDS: CHOLECALCIFEROL 1000 INTER.UNIT TAB PO SCH (07:37)
[2016-11-24 08:29] LABS: BASO % 0.4 %; BASO ABS # 0.03 K/uL (0-0.2); COMPLETE YES; EOS % 1.4 %; HEMATOCRIT 44.8 % (42-52); IG% 0.1 %; LYMPH % 16.4 %; LYMPH ABS # 1.39 K/uL (1.2-3.4); MEAN CELL VOLUME 93.5 fL (80-100); MEAN CORPUSCULAR HEMOGLOBIN 30.5 pg (25-34); MEAN CORPUSCULAR HGB CONC 32.6 g/dl (32-36); MEAN PLATELET VOLUME 11.6 fL (7.4-10.4); MONO % 13.1 %; NEUT % 68.6 %; PLATELET COUNT 137 K/uL (130-400); RED BLOOD COUNT 4.79 M/uL (4.7-6.1); WHITE BLOOD COUNT 8.47 K/uL (4.8-10.8)
[2016-11-24 09:08] LABS: BUN/CREATININE RATIO 15.2 (10-20); CALCIUM 8.7 mg/dl (8.5-10.1)
[2016-11-24 10:32] VITALS: BP 155/87; PULSE 85; O2SAT 96
[2016-11-24 12:10] VITALS: BP 157/85; PULSE 73; TEMP 36.4; O2SAT 94
[2016-11-24] MEDS: HEPARIN 25,000 UNIT/500ML D5W 500 ML IV PRN (13:27)
--- NOTE | 2016-11-24 15:32 | Progress Note ---
Internal Med Progress Note Date of Service: Nov 24, 2016. Provider Documentation: SUBJECTIVE: says cough is better had loose bowels today afebrile no chest pain want to go home OBJECTIVE: Vital Signs-as noted below Exam: General-alert and awake and oriented ENT-normal hearing Neck-no neck masses Lungs-cta b/l no wheezing or crackles Heart-s1 and s2 heard irregular rate and rhythm no murmurs Abdomen-soft bowel sounds present non tender no distension Extremities- no erythema no edema Neuro-alert and awake moves extremities Lab data as noted below. ASSESSMENT & PLAN: 86 year old male presents to the ED from Dr. Adames's office for further evaluation of Afib with RVR. Patient diagnosed on 10/30 in PCPs office, started on Carvedilol but patient had progressive SOB and fatigue so he stopped medication last week. Currently on po Lopressor and digoxin. Iv heparin and Coumadin.Also had chf and started on po Lasix. CXR report recommended ct scan when stable and it was done which showed bulky mediastinal lymphadenopathy and aspiration pneumonia. s/p video swallow and speech recommends slipper diet and GI evaluation. Seen by Ct surgery today for possible biopsy and recommends completion of abx for pneumonia. Await Gi evaluation. Possible d/c in 1-2 days and close followup for further workup. ATRIAL FIBRILLATION WITH RVR received iv Lopressor 15mg in ER chads score 2 did not tolerate Coreg as out patient currently on Lopressor po , digoxin and iv heparin starting on Coumadin appreciate cardiology recommendations Lopressor dose changed to 50mg bid rates under control Coumadin dose changed to 7.5mg daily inr 1.2 today. VOLUME OVERLOAD ACUTE HYPOXIC RESPIRATORY FAILURE Most Likely secondary to Afib with RVR , Acute sytolc and diastolic chf, Pulmonary HTN. EF 40% received a dose of iv lasix cxr today better repeat echo shows -revealed normal LVEF, mild MR, mild TR, moderate to severe , mod to severe pulmonary HTN two step prior to discharge started on po Lasix daily. stable will monitor Pneumonia cough with sputum cxr possible bibasilar consolidation possible aspiration pneumonitis started on unasyn and doxy speech evaluation-plan for video swallow today stable Bulky mediastinal lymphadenopathy lymphoma? will consult Ct surgery for any biopsy ?UNDERLYING HTN BP elevated on arrival, 150s/100s currently on Lopressor. added Norvasc Will monitor COPD 64 pack year history On prn albuterol stable currently CKD STAGE 3 Crea 1.3, stable cr 1.0 will f/u labs. PULMONARY HTN estimated pulmonary artery systolic pressure - 78 mmHg VALVULAR DISEASE mild MR and TR. Moderate As f/u with cardiology [facility] NODULE incidental finding of outpatient CXR today 5mm nodule RUL will f/u with ct chest during this admission H/O BLADDER CA follows with Dr. Cabrera DVT PROPHYLAXIS: On Heparin gtt and coumadin DISPOSITION monitor in tele pt/ot to be determined Vital Signs: Date Time Temp Pulse Resp B/P Pulse Ox O2 Delivery O2 Flow Rate FiO2 11/24/16 17:27 76 11/24/16 16:44 36.3 76 20 168/73 92 Nasal Cannula 2.0 11/24/16 16:00 Nasal Cannula 2.0 11/24/16 12:10 36.4 73 18 157/85 94 Nasal Cannula 2.0 11/24/16 12:01 Nasal Cannula 2.0 11/24/16 10:32 85 96 11/24/16 08:00 Nasal Cannula 2.0 11/24/16 07:29 36.4 95 19 163/79 94 Nasal Cannula 2.0 11/24/16 04:00 Nasal Cannula 2.0 11/24/16 03:44 36.6 83 20 157/81 93 Nasal Cannula 2.0 11/24/16 00:00 Nasal Cannula 2.0 11/23/16 23:48 36.7 82 21 157/72 97 Nasal Cannula 2.0 11/23/16 20:00 Nasal Cannula 2.0 Lab Results: Results Past 24 Hours Test 11/24/16 04:37 11/24/16 08:20 Range/Units Prothrombin Time 12.4 9.0-12.0 SECONDS Prothromb Time International Ratio 1.2 0.9-1.1 Activated Partial Thromboplast Time 60.9 21.0-31.0 SECONDS Partial Thromboplastin Ratio 2.3 White Blood Count 8.47 4.8-10.8 K/uL Red Blood Count 4.79 4.7-6.1 M/uL Hemoglobin 14.6 14.0-18.0 g/dL Hematocrit 44.8 42-52 % Mean Corpuscular Volume 93.5 80-100 fL Mean Corpuscular Hemoglobin 30.5 25-34 pg Mean Corpuscular Hemoglobin Concent 32.6 32-36 g/dl Platelet Count 137 130-400 K/uL Mean Platelet Volume 11.6 7.4-10.4 fL Neutrophils (%) (Auto) 68.6 % Lymphocytes (%) (Auto) 16.4 % Monocytes (%) (Auto) 13.1 % Eosinophils (%) (Auto) 1.4 % Basophils (%) (Auto) 0.4 % Neutrophils # (Auto) 5.81 1.4-6.5 K/uL Lymphocytes # (Auto) 1.39 1.2-3.4 K/uL Monocytes # (Auto) 1.11 0.11-0.59 K/uL Eosinophils # (Auto) 0.12 0-0.5 K/uL Basophils # (Auto) 0.03 0-0.2 K/uL RDW Standard Deviation 46.2 36.4-46.3 fL RDW Coefficient of Variation 13.4 11.5-14.5 % Immature Granulocyte % (Auto) 0.1 % Immature Granulocyte # (Auto) 0.01 0.00-0.02 K/uL Sodium Level 137 136-145 mmol/L Potassium Level 4.0 3.5-5.1 mmol/L Chloride Level 95 98-107 mmol/L Carbon Dioxide Level 36 21-32 mmol/L Anion Gap 6.0 3-11 mmol/L Blood Urea Nitrogen 15 7-18 mg/dl Creatinine 1.00 0.60-1.40 mg/dl Est Creatinine Clear Calc Drug Dose 56.1 ml/min Estimated GFR () 77.5 Estimated GFR (Non- 66.9 BUN/Creatinine Ratio 15.2 10-20 Random Glucose 131 70-99 mg/dl Calcium Level 8.7 8.5-10.1 mg/dl
--- NOTE | 2016-11-24 16:19 | DIAGNOSTIC IMAGING REPORT ---
VIDEO SWALLOW HISTORY: Dysphagia assess for aspiration, please schedule at 1430 TECHNIQUE: Video fluoroscopic evaluation of swallowing was performed in the AP and lateral projections by the speech pathology staff. The patient is fed nectar-thick and thin liquid barium, a barium coated wafer, and barium pudding. FLUOROSCOPY TIME: 2.7 minutes. COMPARISON STUDY: None. FINDINGS: Trace amount of penetration with thin to thick and liquids. No evidence for lillie aspiration. Moderately disordered oral and hypopharyngeal motility. IMPRESSION: 1. No aspiration identified. Disordered hypo and oral motility. Trace amount of penetration. 2. Please see the speech pathologist report for detailed findings and recommendations. Electronically signed by: David Esquivel M.D. 11/24/2016 4:17 PM Dictated Date/Time: 11/24/2016 4:14 PM
--- NOTE | 2016-11-24 16:25 | Medical Consult ---
Consultation Note Date of Service Nov 24, 2016. Consultation Note Consult Dictated #[id number]
[2016-11-24 16:44] VITALS: BP 168/73; PULSE 76; TEMP 36.3; O2SAT 92
--- NOTE | 2016-11-24 17:06 | CONSULTATION REPORT ---
DATE OF CONSULTATION: 11/24/2016 REASON FOR CONSULTATION: Mediastinal adenopathy. 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 Because of this, the patient was subsequently admitted to the hospital. Concerning his atrial fibrillation, rate control measures have been employed and the patient has been fully anticoagulated. It is noteworthy to mention that patient has had an echocardiogram in this admission that showed a 70% ejection fraction with severe aortic stenosis and moderate mitral regurgitation. The patient has had numerous imaging modalities done during this hospitalization. He did have chest x-rays that showed concern for consolidation at the right lung base and therefore, the patient underwent a CT scan of his chest. A CT scan of his chest did show a small to moderate bilateral pleural effusions. Advanced emphysematous changes were noted. The patient was also noted to have airspace consolidation at the right lung base that was consistent with aspiration pneumonia. The patient was also noted to have bulky mediastinal lymphadenopathy along with right supraclavicular lymphadenopathy. It is for this reason that we have been asked to see this patient. I visited with the patient at the bedside and he is currently resting comfortably in bed without chest pain or shortness of breath. I did question the patient on numerous other symptoms. He has not had any recent falls, head injuries, or visual changes. He denies any tinnitus or sore throat. He denies any chest pain. He did have some fatigue and palpitations prior to admission to the hospital. The patient denies any fevers or chills, but he does admit to occasional night sweats. He denies any hemoptysis. He denies any adenopathy that he has noted on his body. 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 He also denies any history of asbestos. The patient states that his last April and he did lose weight, but he felt that this is largely due to depression and he has since regained his normal weight. The patient denies any nausea, vomiting or abdominal pain. He denies any dysuria. He has no history of DVT or PE. He denies anxiety or depression. PAST MEDICAL HISTORY: Includes, 1. COPD. 2. Bladder cancer. 3. Hypertension. 4. Hyperlipidemia. 5. Chronic kidney disease, stage III. PAST SURGICAL HISTORY: Includes, 1. Cystoscopy. 2. Prostate biopsy. 3. Cataract surgery. CURRENT MEDICATIONS: Include, 1. Lactobacillus twice daily. 2. Norvasc 2.5 mg daily. 3. Doxycycline 100 mg twice daily. 4. Coumadin 7.5 mg daily. 5. Unasyn every 6 hours intravenously. 6. Lasix 20 mg daily. 7. Lopressor 50 mg twice daily. 8. Digoxin 0.125 mg daily. 9. Aspirin 81 mg daily. 10. Vitamin D 1000 units daily. 11. Multivitamin daily. 12. Calcium carbonate 1250 mg daily. 13. Heparin drip. 14. Albuterol inhaler as needed. 15. Tylenol as needed. 16. Zofran as needed. 17. Sublingual nitroglycerin as needed. SOCIAL HISTORY: The patient is a former smoker, having smoked from 1944 to 2007. He admits to smoking 1-2 pack of cigarettes per day as worst. FAMILY HISTORY: Positive for peripheral vascular disease. REVIEW OF SYSTEMS: As noted above. PHYSICAL EXAMINATION: VITAL SIGNS: The patient is afebrile with temperature is 36.4, pulse 78 and regular, respirations are 18 and unlabored, blood pressure 157/85, and pulse ox 94% on 2 liters. SKIN: Warm with good turgor. GENERAL: He is alert and he is oriented x3, in no distress. HEENT: Head is atraumatic and normocephalic. Eyes: Pupils are equal, round, and reactive to light and accommodation. Extraocular motions intact. Ears: Auditory acuity is grossly intact. Nose: Nasal patency is intact. Sinuses are nontender. Mouth: Moist without exudate. NECK: Supple. There is no JVD. CARDIOVASCULAR: Revealed a regular rate and rhythm. LUNGS: The patient's lungs revealed breath sounds are decreased at the bases. He was not using accessory muscles. No stridor was noted. No wheezing was noted. ABDOMEN: Soft and nontender. EXTREMITIES: Revealed no cyanosis, clubbing or edema. NEUROLOGIC: Revealed cranial nerves II are grossly intact. No focal deficits were noted. DIAGNOSTIC DATA: In addition to the imaging modalities noted above, the patient has a CBC today, which revealed hemoglobin, hematocrit, white blood cell count as well as platelet count were normal. His chemistry profile showed sodium, potassium, BUN and creatinine were normal. His INR is currently 1.2. IMPRESSION: An 86-year-old male with a bulky mediastinal lymphadenopathy. PLAN: The cause of the patient adenopathy is unknown at this time. I did discuss with the patient at bedside that if he wishes to pursue diagnostic evaluation, he is unsure at this time. I have also discussed with the primary internal medicine service and noted that the patient is currently being treated for pneumonia and it may be best to complete a course of antibiotics for his pneumonia and let him recover from that before pursuing any other diagnostic modalities. If any type of biopsies to be performed, his anticoagulation will obviously need to be held. Further recommendations will be following and we will continue to see this patient while he is in the hospital.
[2016-11-24] MEDS: DIGOXIN 0.125 MG TAB PO SCH (17:27)
[2016-11-24] MEDS: WARFARIN SOD 7.5 MG TAB PO SCH (17:27)
[2016-11-24 19:56] VITALS: BP 130/74; PULSE 63; TEMP 36.5; O2SAT 93
[2016-11-24] MEDS: LACTOBACILLUS ACIDOPHILUS (FLORANEX) TAB PO SCH (20:01)
[2016-11-25] VITALS (8 sets, daily range): BP systolic 104–171; BP diastolic 58–83; PULSE 69–111; TEMP 36.3–36.8; O2SAT 70–97
[2016-11-25] MEDS: AMPICILLIN/SULBACTAM SOD INJ 3,000 MG in SODIUM CHLORIDE 0.9% 100ML 100 ML IV SCH ×4 (01:24→19:22)
[2016-11-25 04:35] LABS: HEMATOCRIT 41.7 % (42-52); MEAN CELL VOLUME 93.3 fL (80-100); MEAN CORPUSCULAR HEMOGLOBIN 31.1 pg (25-34); MEAN CORPUSCULAR HGB CONC 33.3 g/dl (32-36); PLATELET COUNT 115 K/uL (130-400); RED BLOOD COUNT 4.47 M/uL (4.7-6.1); WHITE BLOOD COUNT 6.65 K/uL (4.8-10.8)
[2016-11-25 04:49] LABS: CREATININE 0.92 mg/dl (0.60-1.40)
[2016-11-25 04:55] LABS: INR 1.4 (0.9-1.1); PARTIAL THROMBOPLASTIN RATIO 2.7; PROTHROMBIN TIME (PATIENT) 15.4 SECONDS (9.0-12.0)
[2016-11-25] MEDS: HEPARIN 25,000 UNIT/500ML D5W 500 ML IV PRN ×2 (05:24→20:30)
[2016-11-25] MEDS: AMLODIPINE BESYLATE 5 MG TAB PO SCH (08:39)
[2016-11-25] MEDS: CHOLECALCIFEROL 1000 INTER.UNIT TAB PO SCH (08:39)
[2016-11-25] MEDS: MULTIVITAMIN TAB PO SCH (08:39)
[2016-11-25] MEDS: DOXYCYCLINE HYCLATE 100 MG CAP PO SCH ×2 (08:39→19:23)
[2016-11-25] MEDS: CALCIUM CARBONATE 1250MG TAB PO SCH (08:39)
[2016-11-25] MEDS: LACTOBACILLUS ACIDOPHILUS (FLORANEX) TAB PO SCH ×2 (08:39→19:22)
[2016-11-25] MEDS: FUROSEMIDE 20 MG TAB PO SCH (08:39)
[2016-11-25] MEDS: ASPIRIN 81 MG ECTAB PO SCH (08:39)
[2016-11-25] MEDS: METOPROLOL TARTRATE 25 MG TAB PO SCH ×2 (08:40→16:33)
--- NOTE | 2016-11-25 11:00 | Cardiology Follow-Up ---
Subjective Subjective Date of Service: Nov 25, 2016. Pt evaluation today including: conversation w/ patient, conversation w/ family , physical exam, chart review, lab review, review of studies, conversation w/ marine consultant, review of inpatient medication list Additional Details: Pt seen and examined, states that he's feeling ok. Denies cp, sob, palpitations , lightheadedness or dizziness. Tele reviewed: atrial fibrillation, rate controlled. Pt found to have mediastinal adenopathy, thoracic surgery was consulted and considering mediastinoscopy under general anesthesia. Problem List Medical Problems: (1) Atrial fibrillation with rapid ventricular response Status: Acute (2) COPD (chronic obstructive pulmonary disease) Status: Chronic (3) History of bladder cancer Status: Chronic (4) History of prostate cancer Status: Chronic (5) Hypertension Status: Chronic (6) Pulmonary hypertension Status: Acute Review of Systems Respiratory: No cough, No dyspnea at rest, No dyspnea on exertion, No hemoptysis, No problem reported, No see HPI, No shortness of breath, No sputum, No wheezing Cardiac: No PND, No chest pain, No claudication, No edema, No orthopnea, No palpitations, No problem reported, No see HPI Objective Vital Signs Last Vital Signs Documentation Date Time Temp Pulse Resp B/P Pulse Ox O2 Delivery O2 Flow Rate FiO2 11/25/16 08:47 36.4 111 18 126/58 95 Room Air 11/25/16 08:00 1.0 Physical Exam: General Appearance: WD/WN, no apparent distress Eyes: bilateral eyes EOMI, bilateral eyes PERRL, bilateral eyes normal inspection ENT: normal ENT inspection, hearing grossly normal, pharynx normal Neck: supple, no adenopathy, thyroid normal, no JVD, no carotid bruits, trachea midline Respiratory/Chest: chest non-tender, normal breath sounds, no respiratory distress, no accessory muscle use, + rhonchi Cardiovascular: no edema, no JVD, + systolic murmur (3/6 mid to late dorothy), + irregularly irregular Abdomen: normal bowel sounds, non tender, soft, no organomegaly, no pulsatile mass Extremities: normal inspection, no pedal edema, no calf tenderness Neurologic/Psychiatric: trust officer II-XII nml as tested, no motor/sensory deficits, alert, normal mood/affect, oriented x 3 Skin: normal color, warm/dry, no rash Lymphatic: no adenopathy Assessment and Plan 1. atrial fibrillation rate controlled on heparin bridge with coumadin inr trending upwards 2. valvular heart disease severe aortic stenosis severe tricuspid regurgitation moderate mitral regurgitation severe pulmonary hypertension 3. preop risk for general anesthesia discussed with surgical team along with patient and his daughter, Arianna Ervin believe the patient would be a significantly high risk for adverse perioperative cardiovascular event surgery agrees will cancel procedure cont with coumadin load
--- NOTE | 2016-11-25 12:04 | Progress Note ---
Internal Med Progress Note Date of Service: Nov 25, 2016. Provider Documentation: SUBJECTIVE: Patient is doing better. Denies any complaints Overall improved clinically No SOB, Cough, fever, chills, night sweats, anorexia, nausea, vomiting, abdominal pain Not hypoxic, on RA OBJECTIVE: Vital Signs-as noted below Exam: General-AAOX3, no distress Neck-no neck masses Lungs-cta b/l no wheezing or crackles Heart- Murmurs + Abdomen-soft bowel sounds present non tender no distension Extremities- no erythema no edema Neuro-Grossly no focal deficits Lab data as noted below. ASSESSMENT & PLAN: ASSESSMENT & PLAN: 86 year old male presents to the ED from Dr. Adames's office for further evaluation of Afib with RVR. Patient diagnosed on 10/30 in PCPs office, started on Carvedilol but patient had progressive SOB and fatigue so he stopped medication last week. Currently on po Lopressor and digoxin. IV heparin and Coumadin.Also had chf and started on po Lasix. CXR report recommended ct scan when stable and it was done which showed bulky mediastinal lymphadenopathy and aspiration pneumonia. s/p video swallow and speech recommends slippery diet. Seen by Ct surgery today for possible biopsy, but very high risk from cardiac point of view per discussion with cardiology, thus procedure is cancelled. ATRIAL FIBRILLATION WITH RVR : Rate controlled -Continue with lopressor, Digoxin -On IV Heparin/Coumadin, INR 1.4. CHADVASC score - 2 -Appreciate cardiology inputs ACUTE ON CHRONIC SYSTOLIC/DIASTOLIC CHF : ACUTE HYPOXIC RESPIRATORY FAILURE Most Likely secondary to Afib with RVR , Acute sytolc and diastolic chf, Pulmonary HTN. EF 40% S/P IV Lasix--> Changed to PO lasix -CXR- improvement noted. Echo shows -revealed normal LVEF, mild MR, mild TR, moderate to severe , mod to severe pulmonary HTN PNEUMONIA -Cxr possible bibasilar consolidation possible aspiration pneumonitis -IV Unasyn/Doxycycline. -Speech evaluation- Video swallow test - No aspiration, moderately disordered hypopharyngeal, oral motility, trace penetration, recommended GI evaluation -Tolerating PO - slippery diet with aspiration/GERD precautions -GI evaluation done- had had these issues in past too- offered procedures- dilation/EGD but refused as currently feels well with no issues BULKY MEDIASTINAL LYMPHADENOPATHY per CT scan Chest -CT surgery was consulted for possible biopsy -Cardiology evaluated for perioperative risk and with valvular heart disease, a very high risk for cardiopulmonary complications, so surgery was cancelled after a discussion with daughter Arianna and patient -Patient understands and agrees with the plan. ?UNDERLYING HTN BP elevated on arrival, 150s/100s -On lopressor, newly started on norvasc COPD 64 pack year history On prn albuterol stable currently CKD STAGE 3 Crea stable near baseline -Monitor. PULMONARY HTN -Estimated pulmonary artery systolic pressure - 78 mmHg VALVULAR DISEASE Severe , TR, Moderate MR -Cardiology on board, [facility] NODULE incidental finding of outpatient CXR. 5mm nodule RUL -Repeat CT scan chest- does not mention about nodule, but findings as above H/O BLADDER CA follows with Dr. Cabrera DVT PROPHYLAXIS: On Heparin gtt and coumadin DISPOSITION monitor in tele PT/OT Recommends return to home Vital Signs: Date Time Temp Pulse Resp B/P Pulse Ox O2 Delivery O2 Flow Rate FiO2 11/25/16 11:44 36.7 69 18 129/71 96 2.0 11/25/16 08:47 36.4 111 18 126/58 95 Room Air 11/25/16 08:00 Nasal Cannula 1.0 11/25/16 04:00 Nasal Cannula 1.0 11/25/16 03:49 36.6 74 19 156/79 92 Nasal Cannula 1.0 11/25/16 00:00 36.3 84 19 171/77 93 Nasal Cannula 2.0 11/24/16 23:59 Nasal Cannula 1.0 11/24/16 20:00 Nasal Cannula 1.0 11/24/16 19:56 36.5 63 16 130/74 93 Nasal Cannula 1.0 11/24/16 17:27 76 11/24/16 16:44 36.3 76 20 168/73 92 Nasal Cannula 2.0 11/24/16 16:00 Nasal Cannula 2.0 11/24/16 12:10 36.4 73 18 157/85 94 Nasal Cannula 2.0 11/24/16 12:01 Nasal Cannula 2.0 Lab Results: Results Past 24 Hours Test 11/25/16 04:30 11/25/16 11:00 Range/Units White Blood Count 6.65 4.8-10.8 K/uL Red Blood Count 4.47 4.7-6.1 M/uL Hemoglobin 13.9 14.0-18.0 g/dL Hematocrit 41.7 42-52 % Mean Corpuscular Volume 93.3 80-100 fL Mean Corpuscular Hemoglobin 31.1 25-34 pg Mean Corpuscular Hemoglobin Concent 33.3 32-36 g/dl RDW Standard Deviation 46.0 36.4-46.3 fL RDW Coefficient of Variation 13.4 11.5-14.5 % Platelet Count 115 130-400 K/uL Mean Platelet Volume 11.0 7.4-10.4 fL Prothrombin Time 15.4 9.0-12.0 SECONDS Prothromb Time International Ratio 1.4 0.9-1.1 Activated Partial Thromboplast Time 70.3 21.0-31.0 SECONDS Partial Thromboplastin Ratio 2.7 Creatinine 0.92 0.60-1.40 mg/dl Est Creatinine Clear Calc Drug Dose 60.9 ml/min Estimated GFR () 85.8 Estimated GFR (Non- 74.0
[2016-11-25 12:53] LABS: PARTIAL THROMBOPLASTIN RATIO 2.2
--- NOTE | 2016-11-25 13:35 | Gastrointestinal Consultation ---
Gastrointestinal Consultation Date of Consultation: Nov 25, 2016 Attending Physician: Yessy Boo Consulting Physician: Mikal Edwards Reason for Consultation: Dysphagia History of Present Illness Patient is a 86 year old male currently admitted for Afib management. Was on Coumadin and Heparin though now Coumadin held as he is getting work up for R supraclavicular and mediastinal lymphadenopathy; may be getting bx on . He is seen in consultation today for dysphagia per ST recommendations. Pt was note to be coughing up food and pills at times. He reported today that he has a known "pouch" on his esophagus for years (likely diverticulum). He does cough up food and pills at times. Also been using applesauce to make pill swallowing easier. He denies any hx of food/pill bolus. Denies any odynophagia, n/v, weight loss associated w trouble eating. He had a video swallow study w ST evaluation which showed mild oropharygeal dysphagia w esophageal dysmotility, trace penetration but aspiration. He never had EGD evaluation before. Past Medical/Surgical History Medical Problems: (1) Atrial fibrillation with rapid ventricular response Status: Acute (2) COPD (chronic obstructive pulmonary disease) Status: Chronic (3) History of bladder cancer Status: Chronic (4) History of prostate cancer Status: Chronic (5) Hypertension Status: Chronic (6) Pulmonary hypertension Status: Acute Past Medical History: COPD Bladder, Prostate cancer HTN Past Surgical History: Prostate bx Cataract sx Family History FH: aneurysm FH: cancer Aneurysm Cancer Social History Smoking Status: Former Smoker Alcohol Use: occasionally Drug Use: none Marital Status: Housing Status: lives with family Occupation Status: retired Allergies Coded Allergies: No Known Allergies (Unverified , `, 11/19/16) Current Medications Home Meds and Scripts Medications Dose Route/Sig Max Daily Dose Days Date Category Ventolin Hfa (Albuterol) 200 Puffs/99551 Mcg Aers 2 Puffs INH TID PRN 11/19/16 Reported Calcium (Calcium Carbonate) 600 Mg Tab 2 Tab PO DAILY 11/19/16 Reported Vitamin D (Cholecalciferol) 1,000 Unit Tab 1 Tab PO DAILY 11/19/16 Reported Multivitamin (Multivitamins) Tab 1 Tab PO DAILY 09/07/15 Reported Aspirin Chewable (Aspirin) 81 Mg Chew 81 Mg PO DAILY 09/07/15 Reported Review of Systems Constitutional: No chills, No fever ENT: + trouble swallowing, No pain on swallowing Respiratory: No cough, No shortness of breath Cardiac: No chest pain Abdomen: + GI bleeding (Intermittent rectal bleeding due to hemorrhoids, only noted when wiping after defecation ), No nausea, No pain, No vomiting Skin: No itch, No rash Physical Exam Date Time Temp Pulse Resp B/P Pulse Ox O2 Delivery O2 Flow Rate FiO2 11/25/16 12:31 Nasal Cannula 1.0 11/25/16 12:00 Nasal Cannula 1.0 11/25/16 11:44 36.7 69 18 129/71 96 2.0 11/25/16 08:47 36.4 111 18 126/58 95 Room Air 11/25/16 08:00 Nasal Cannula 1.0 11/25/16 04:00 Nasal Cannula 1.0 11/25/16 03:49 36.6 74 19 156/79 92 Nasal Cannula 1.0 11/25/16 00:00 36.3 84 19 171/77 93 Nasal Cannula 2.0 11/24/16 23:59 Nasal Cannula 1.0 11/24/16 20:00 Nasal Cannula 1.0 11/24/16 19:56 36.5 63 16 130/74 93 Nasal Cannula 1.0 11/24/16 17:27 76 11/24/16 16:44 36.3 76 20 168/73 92 Nasal Cannula 2.0 11/24/16 16:00 Nasal Cannula 2.0 General Appearance: WD/WN, no apparent distress Eyes: normal inspection, PERRL, EOMI Neck: supple, no JVD, trachea midline Respiratory/Chest: normal breath sounds, no respiratory distress, no accessory muscle use Cardiovascular: regular rate, rhythm, no gallop, no murmur Abdomen: normal bowel sounds, non tender, soft Extremities: normal inspection, no pedal edema, no calf tenderness Neurologic/Psych: alert, normal mood/affect, oriented x 3 Skin: normal color, no jaundice, no rash Laboratory Results Last 24 Hours Test 11/25/16 04:30 11/25/16 11:40 White Blood Count 6.65 K/uL Red Blood Count 4.47 M/uL Hemoglobin 13.9 g/dL Hematocrit 41.7 % Mean Corpuscular Volume 93.3 fL Mean Corpuscular Hemoglobin 31.1 pg Mean Corpuscular Hemoglobin Concent 33.3 g/dl RDW Standard Deviation 46.0 fL RDW Coefficient of Variation 13.4 % Platelet Count 115 K/uL Mean Platelet Volume 11.0 fL Prothrombin Time 15.4 SECONDS Prothromb Time International Ratio 1.4 Activated Partial Thromboplast Time 70.3 SECONDS 57.8 SECONDS Partial Thromboplastin Ratio 2.7 2.2 Creatinine 0.92 mg/dl Est Creatinine Clear Calc Drug Dose 60.9 ml/min Estimated GFR () 85.8 Estimated GFR (Non- 74.0 Impression Patient is a 86 year old male currently admitted for Afib management, also now undergoing workup for lung lymphadenopathies ? lymphoma; seen for dysphagia. Per pt, he's has a known "pouch" ? diverticulum on esophagus. Occasionally food/ pills will get stuck and he may cough them up. Never had food bolus, or painful swallowing. Swallowing not troublesome to cause n/v, weight loss. He is refusing further GI workup including EGD or esophageal manometry evaluations. Plan - Diet per ST recs - Will add Protonix 40mg daily - Defer further GI workup at this time given pt's refusal - Consider adding Anusol suppository if hemorrhoidal bleeding continues. I performed a history and physical examination of the patient. I have discussed the patient's case, impression and plan with GONZALEZ Barros on . Her note reflects my findings and plan. No urgent need for invasive GI testing. Patient refuses and I concur. Mikal Edwards MD
--- NOTE | 2016-11-25 14:48 | SURGERY PROGRESS NOTE ---
DATE: 11/25/2016 DATE: 11/25/2016. For specifics of this consult please see Mr. Abdi Pennington's consultation from last night. SUBJECTIVE: This patient is an 86-year-old male who has atrial fibrillation which is longstanding who presents with shortness of breath. He suffers from aortic stenosis and also has mitral valvular disease. He was seen by Dr. Yang. I was asked to evaluate this patient for marked mediastinal adenopathy. From a symptom standpoint, he has some night sweats which are new the last couple months but his weight has been stable. He cared for his until her and lost about 20 pounds but has gained much of that back now. He really did not have much in the way of symptoms except he is short of breath. A CT scan showed some right-sided pleural effusion and small amount on the left. He had marked mediastinal lymph nodes. I had initially planned to do a mediastinoscopy or an endobronchial ultrasound on this patient, however, Dr. Melecio Yang who is following this patient from a cardiology standpoint, feels that he would be at least moderate and probably high risk from a cardiac standpoint. At this point, as he does not have much in the way of systemic symptoms, I would hold off offering him anything. I will discuss with radiology to see if perhaps they could do a fine needle aspiration of his right supraclavicular lymph node.
[2016-11-25] MEDS: WARFARIN SOD 7.5 MG TAB PO SCH (16:34)
[2016-11-25] MEDS: DIGOXIN 0.125 MG TAB PO SCH (16:34)
[2016-11-25 18:41] LABS: BUN/CREATININE RATIO 19.1 (10-20); CALCIUM 8.5 mg/dl (8.5-10.1); CREATININE 0.99 mg/dl (0.60-1.40); MAGNESIUM 2.1 mg/dl (1.8-2.4); POTASSIUM 3.7 mmol/L (3.5-5.1)
[2016-11-25] MEDS ORDERED: POTASSIUM CHLORIDE 20 MEQ/15 ML UDC PO ONE (19:15)
[2016-11-26] VITALS (9 sets, daily range): BP systolic 138–181; BP diastolic 65–88; PULSE 68–105; TEMP 36.3–37; O2SAT 87–96
[2016-11-26] MEDS: AMPICILLIN/SULBACTAM SOD INJ 3,000 MG in SODIUM CHLORIDE 0.9% 100ML 100 ML IV SCH ×3 (01:03→13:32)
[2016-11-26 06:28] LABS: HEMATOCRIT 41.3 % (42-52); MEAN CELL VOLUME 94.5 fL (80-100); MEAN CORPUSCULAR HEMOGLOBIN 30.4 pg (25-34); MEAN CORPUSCULAR HGB CONC 32.2 g/dl (32-36); MEAN PLATELET VOLUME 10.9 fL (7.4-10.4); PLATELET COUNT 108 K/uL (130-400); RED BLOOD COUNT 4.37 M/uL (4.7-6.1); WHITE BLOOD COUNT 6.23 K/uL (4.8-10.8)
[2016-11-26 06:52] LABS: INR 1.8 (0.9-1.1); PARTIAL THROMBOPLASTIN RATIO 3.2; PROTHROMBIN TIME (PATIENT) 19.4 SECONDS (9.0-12.0)
[2016-11-26] MEDS: CALCIUM CARBONATE 1250MG TAB PO SCH (07:39)
[2016-11-26] MEDS: LACTOBACILLUS ACIDOPHILUS (FLORANEX) TAB PO SCH ×2 (07:39→20:46)
[2016-11-26] MEDS: AMLODIPINE BESYLATE 5 MG TAB PO SCH (07:39)
[2016-11-26] MEDS: ASPIRIN 81 MG ECTAB PO SCH (07:39)
[2016-11-26] MEDS: METOPROLOL TARTRATE 25 MG TAB PO SCH ×2 (07:41→15:52)
[2016-11-26] MEDS: MULTIVITAMIN TAB PO SCH (07:42)
[2016-11-26] MEDS: FUROSEMIDE 20 MG TAB PO SCH (07:42)
[2016-11-26] MEDS: CHOLECALCIFEROL 1000 INTER.UNIT TAB PO SCH (07:43)
[2016-11-26] MEDS: PANTOprazole SOD 40 MG TAB PO SCH (07:43)
[2016-11-26] MEDS: DOXYCYCLINE HYCLATE 100 MG CAP PO SCH (07:43)
--- NOTE | 2016-11-26 11:18 | Cardiology Follow-Up ---
Subjective General Date of Service: Nov 26, 2016. Chief Complaint: follow up shortenss of breath Pt evaluation today including: conversation w/ patient, physical exam, chart review, lab review, review of studies, review of inpatient medication list History of Present Illness Pt seen and examined Notes improved loose stools, aggravated hemorrhoidal bleeding - slowing down. Dyspnea improved Denies chest pain or palpitations No lightheadedness or dizziness. Telemetry: Atrial fibrillation currently in the 70's. Ventricular rates range from the mid 40's to 130 bpm. 17 beat run of wide complex tachycardia on 2016 at 17:51:27, asleep, asymptomatic. November 21, 2016 TTE Interpretation Summary ([facility], Dr. Kim): The left ventricle is normal in size. There is moderate concentric left ventricular hypertrophy. Left ventricular systolic function is normal. The left ventricular wall motion is normal. Ejection Fraction = 65-70%. The right ventricular cavity size is enlarged (proximal parasternal long axis right ventricular outflow tract dimension >3.3 cm). The left atrium is moderately dilated. The right atrium is severely dilated. The aortic valve is trileaflet. The aortic valve leaflets are heavily calcified. Moderate to severe valvular aortic stenosis. There is mild mitral regurgitation. There is mild tricuspid regurgitation. Right ventricular systolic pressure is elevated at 50-60mmHg. Allergies Coded Allergies: No Known Allergies (Unverified , `, 11/19/16) Social History Smoking Status: Former Smoker Hx Tobacco Use In Past Year?: No Hx Alcohol Use - Type And Amou: Yes (BEER ON OCCASION) Hx Substance Use - Type And Am: No Problem List Medical Problems: (1) Atrial fibrillation with rapid ventricular response Status: Acute (2) COPD (chronic obstructive pulmonary disease) Status: Chronic (3) History of bladder cancer Status: Chronic (4) History of prostate cancer Status: Chronic (5) Hypertension Status: Chronic (6) Pulmonary hypertension Status: Acute Physical Exam Vital Signs Last Vital Signs Documentation Date Time Temp Pulse Resp B/P Pulse Ox O2 Delivery O2 Flow Rate FiO2 11/26/16 08:00 Nasal Cannula 1.0 11/26/16 07:49 37.0 105 20 181/88 96 Physical Exam Constitutional: Level of Distress: NAD Psychiatric: Orientation: to time, to place, to person Head: normocephalic, atraumatic Neck: pertinent finding (Normal JVP) Lungs: Auscultation: no wheezing, no rales/crackles, no rhonchi, deminished air movement, decreased breath sounds Cardiovascular: Heart Auscultation: no rubs, II/ CHRIS, irregular rate rhythm Abdomen: Inspection & Palpation: soft, non-distended Extremities: no cyanosis, no edema, no clubbing Neurologic: Cranial Nerves: grossly intact Assessment and Plan Assessment and Plan Atrial fibrillation Rates fairly well controlled Continue metoprolol and digoxin as presently prescribed. Heparin bridge with Coumadin. INR goal 2.0 to 3.0. Wide complex tachycardia See above. Symptomatic Continue metoprolol Reassess potassium and magnesium Valvular heart disease Medical management. Hypertension Target SBP 130-150 given valvular issues Increase amlodipine to 5 mg/day. CARDIOLOGY ATTENDING ADDENDUM: The patient was seen and personally examined. Agree with David Hidalgo PA-C's findings and plans as documented above. Laboratory Results Last 24 Hours Test 11/25/16 11:40 11/25/16 18:10 11/26/16 06:13 Activated Partial Thromboplast Time 57.8 SECONDS 82.5 SECONDS Partial Thromboplastin Ratio 2.2 3.2 Sodium Level 133 mmol/L Potassium Level 3.7 mmol/L Chloride Level 91 mmol/L Carbon Dioxide Level 37 mmol/L Anion Gap 5.0 mmol/L Blood Urea Nitrogen 19 mg/dl Creatinine 0.99 mg/dl Est Creatinine Clear Calc Drug Dose 56.6 ml/min Estimated GFR () 78.5 Estimated GFR (Non- 67.7 BUN/Creatinine Ratio 19.1 Random Glucose 134 mg/dl Calcium Level 8.5 mg/dl Magnesium Level 2.1 mg/dl White Blood Count 6.23 K/uL Red Blood Count 4.37 M/uL Hemoglobin 13.3 g/dL Hematocrit 41.3 % Mean Corpuscular Volume 94.5 fL Mean Corpuscular Hemoglobin 30.4 pg Mean Corpuscular Hemoglobin Concent 32.2 g/dl RDW Standard Deviation 46.2 fL RDW Coefficient of Variation 13.3 % Platelet Count 108 K/uL Mean Platelet Volume 10.9 fL Prothrombin Time 19.4 SECONDS Prothromb Time International Ratio 1.8
[2016-11-26 11:56] LABS: BUN/CREATININE RATIO 16.5 (10-20); CALCIUM 8.4 mg/dl (8.5-10.1); CREATININE 0.95 mg/dl (0.60-1.40); POTASSIUM 3.8 mmol/L (3.5-5.1)
[2016-11-26 14:36] LABS: PARTIAL THROMBOPLASTIN RATIO 2.3
--- NOTE | 2016-11-26 14:51 | SURGERY PROGRESS NOTE ---
DATE: 11/26/2016 SUBJECTIVE: Edna, 86-year-old man with atrial fibrillation. I saw yesterday with mediastinal lymph nodes. We had a long talk about this and I had initially offered him either an EBUS or perhaps a mediastinoscopy; however, after discussing this patient's cardiac status with Dr. Yang, I think we should hold off offering him an invasive procedure. He is a high risk for any type of general anesthesia. MICHELLE
--- NOTE | 2016-11-26 15:19 | SURGERY PROGRESS NOTE ---
DATE: 11/26/2016 DATE: 11/26/2016. I discussed this case with Dr. Abel Valdovinos from radiology who was agreeable to doing a biopsy of this right supraclavicular node under ultrasound guidance. We will hold the Coumadin dose today. INR is 1.8 today but he did receive a dose of 7.5 mg of Coumadin yesterday. We will hold heparin in the morning at 5 o'clock [address].m. Hopefully, Dr. Valdovinos will be able to get him on the schedule tomorrow.
--- NOTE | 2016-11-26 15:30 | Progress Note ---
Internal Med Progress Note Date of Service: Nov 26, 2016. Provider Documentation: SUBJECTIVE: Patient is doing better. Denies any complaints. Overall improved clinically. No SOB, Cough, fever, chills, night sweats, anorexia, nausea, vomiting, abdominal pain Hemorrhoidal bleeding improved Not hypoxic, on RA Tele- A fib with RVR, 17 beat wide complex tachycardia on 11/25/16 OBJECTIVE: Vital Signs-as noted below Exam: General-AAOX3, no distress Neck-no neck masses Lungs-cta b/l no wheezing or crackles Heart- Murmurs + Abdomen-soft bowel sounds present non tender no distension Extremities- no erythema no edema Neuro-Grossly no focal deficits Lab data as noted below. ASSESSMENT & PLAN: ASSESSMENT & PLAN: 86 year old male presents to the ED from Dr. Adames's office for further evaluation of Afib with RVR. Patient diagnosed on 10/30 in PCPs office, started on Carvedilol but patient had progressive SOB and fatigue so he stopped medication last week. Currently on po Lopressor and digoxin. IV heparin and Coumadin.Also had chf and started on po Lasix. CXR report recommended ct scan when stable and it was done which showed bulky mediastinal lymphadenopathy and aspiration pneumonia. s/p video swallow and speech recommends slippery diet. Seen by Ct surgery today for possible biopsy, but very high risk from cardiac point of view per discussion with cardiology, thus procedure is cancelled. ATRIAL FIBRILLATION WITH RVR : Rate controlled -Continue with lopressor, Digoxin OI -On IV Heparin/Coumadin bridging, INR 1.8. CHADVASC score - 2 -Appreciate cardiology inputs ACUTE ON CHRONIC SYSTOLIC/DIASTOLIC CHF : ACUTE HYPOXIC RESPIRATORY FAILURE Most Likely secondary to A fib with RVR , Acute systolic and diastolic chf, Pulmonary HTN. EF 40% S/P IV Lasix--> Changed to PO lasix -CXR- improvement noted. Echo shows -revealed normal LVEF, mild MR, mild TR, moderate to severe , mod to severe pulmonary HTN PNEUMONIA -Cxr possible bibasilar consolidation possible aspiration pneumonitis -IV Unasyn/Doxycycline--> Change to clindamycin -Speech evaluation- Video swallow test - No aspiration, moderately disordered hypopharyngeal, oral motility, trace penetration, recommended GI evaluation -Tolerating PO - slippery diet with aspiration/GERD precautions -GI evaluation done- had had these issues in past too- offered procedures- dilation/EGD but refused as currently feels well with no issues BULKY MEDIASTINAL LYMPHADENOPATHY per CT scan Chest -CT surgery was consulted for possible biopsy -Cardiology evaluated for perioperative risk and with valvular heart disease, a very high risk for cardiopulmonary complications, so surgery was cancelled after a discussion with daughter Arianna and patient -Patient understands and agrees with the plan. Discussed with daughter as well- understands HTN, Underlying, newly diagnosed BP elevated -On lopressor, newly started on norvasc- increased to 5 mg today COPD 64 pack year history On prn albuterol stable currently CKD STAGE 3 Crea stable near baseline -Monitor. PULMONARY HTN -Estimated pulmonary artery systolic pressure - 78 mmHg VALVULAR DISEASE Severe , TR, Moderate MR -Cardiology on board, [place] NODULE incidental finding of outpatient CXR. 5mm nodule RUL -Repeat CT scan chest- does not mention about nodule, but findings as above H/O BLADDER CA follows with Dr. Cabrera DVT PROPHYLAXIS: On Heparin gtt and coumadin DISPOSITION Tele monitoring PT/OT Recommends return to home IV Heparin/Coumadin bridging. Hopefully will be able to discharge home tomorrow AM if INR > 2 Vital Signs: Date Time Temp Pulse Resp B/P Pulse Ox O2 Delivery O2 Flow Rate FiO2 11/26/16 15:21 36.4 78 18 152/81 96 Nasal Cannula 0.5 11/26/16 12:00 87 Room Air 11/26/16 12:00 Nasal Cannula 1.0 11/26/16 11:42 36.8 86 18 149/76 95 11/26/16 08:00 Nasal Cannula 1.0 11/26/16 07:49 37.0 105 20 181/88 96 Nasal Cannula 1.0 11/26/16 04:38 36.5 89 21 152/71 90 Nasal Cannula 2.0 11/26/16 04:00 Nasal Cannula 1.0 11/25/16 23:59 Nasal Cannula 1.0 11/25/16 23:49 36.4 72 19 156/82 93 Nasal Cannula 2.0 11/25/16 20:00 Nasal Cannula 1.0 11/25/16 19:50 36.8 74 19 156/83 97 Nasal Cannula 0.5 11/25/16 16:34 80 11/25/16 16:00 Nasal Cannula 1.0 11/25/16 15:39 36.6 73 20 131/66 93 1.0 Lab Results: Results Past 24 Hours Test 11/25/16 18:10 11/26/16 06:13 11/26/16 13:51 Range/Units Sodium Level 133 136 136-145 mmol/L Potassium Level 3.7 3.8 3.5-5.1 mmol/L Chloride Level 91 93 98-107 mmol/L Carbon Dioxide Level 37 37 21-32 mmol/L Anion Gap 5.0 6.0 3-11 mmol/L Blood Urea Nitrogen 19 16 7-18 mg/dl Creatinine 0.99 0.95 0.60-1.40 mg/dl Est Creatinine Clear Calc Drug Dose 56.6 59.0 ml/min Estimated GFR () 78.5 82.5 Estimated GFR (Non- 67.7 71.2 BUN/Creatinine Ratio 19.1 16.5 10-20 Random Glucose 134 106 70-99 mg/dl Calcium Level 8.5 8.4 8.5-10.1 mg/dl Magnesium Level 2.1 2.0 1.8-2.4 mg/dl White Blood Count 6.23 4.8-10.8 K/uL Red Blood Count 4.37 4.7-6.1 M/uL Hemoglobin 13.3 14.0-18.0 g/dL Hematocrit 41.3 42-52 % Mean Corpuscular Volume 94.5 80-100 fL Mean Corpuscular Hemoglobin 30.4 25-34 pg Mean Corpuscular Hemoglobin Concent 32.2 32-36 g/dl RDW Standard Deviation 46.2 36.4-46.3 fL RDW Coefficient of Variation 13.3 11.5-14.5 % Platelet Count 108 130-400 K/uL Mean Platelet Volume 10.9 7.4-10.4 fL Prothrombin Time 19.4 9.0-12.0 SECONDS Prothromb Time International Ratio 1.8 0.9-1.1 Activated Partial Thromboplast Time 82.5 60.0 21.0-31.0 SECONDS Partial Thromboplastin Ratio 3.2 2.3
[2016-11-26] MEDS: DIGOXIN 0.125 MG TAB PO SCH (15:51)
[2016-11-26] MEDS: CLINDAMYCIN HCL 150 MG CAP PO SCH (20:46)
[2016-11-27] VITALS (10 sets, daily range): BP systolic 132–160; BP diastolic 65–84; PULSE 69–84; TEMP 36.2–36.9; O2SAT 90–97
[2016-11-27] MEDS: CLINDAMYCIN HCL 150 MG CAP PO SCH ×3 (05:25→20:33)
[2016-11-27 07:26] LABS: INR 1.7 (0.9-1.1); PARTIAL THROMBOPLASTIN RATIO 2.8; PROTHROMBIN TIME (PATIENT) 18.3 SECONDS (9.0-12.0)
[2016-11-27] MEDS: AMLODIPINE BESYLATE 5 MG TAB PO SCH (07:49)
[2016-11-27] MEDS: CHOLECALCIFEROL 1000 INTER.UNIT TAB PO SCH (07:49)
[2016-11-27] MEDS: PANTOprazole SOD 40 MG TAB PO SCH (07:49)
[2016-11-27] MEDS: CALCIUM CARBONATE 1250MG TAB PO SCH (07:49)
[2016-11-27] MEDS: METOPROLOL TARTRATE 25 MG TAB PO SCH ×2 (07:50→16:45)
[2016-11-27] MEDS: MULTIVITAMIN TAB PO SCH (07:50)
[2016-11-27] MEDS: ASPIRIN 81 MG ECTAB PO SCH (07:50)
[2016-11-27] MEDS: FUROSEMIDE 20 MG TAB PO SCH (07:50)
[2016-11-27] MEDS: LACTOBACILLUS ACIDOPHILUS (FLORANEX) TAB PO SCH ×2 (07:50→20:33)
--- NOTE | 2016-11-27 08:42 | SURGERY PROGRESS NOTE ---
DATE: 11/27/2016 I had a long talk with Mr. Bishop this morning. I have explained that he is extremely high risk for general anesthesia and we will get him set up for a biopsy by Dr. Esquivel of his right supraclavicular lymph node. His INR is 1.7 today. His heparin was stopped at 5:00 a.m. Overall, he looks stable, although he is complaining of some bleeding per rectum. His hemoglobin has been stable since he got here. This may have been due to hemorrhoids as he has had a problem with this in the past by history. MICHELLE
--- NOTE | 2016-11-27 10:20 | Cardiology Follow-Up ---
Subjective General Date of Service: Nov 27, 2016. Chief Complaint: follow up shortenss of breath Pt evaluation today including: conversation w/ patient, physical exam, chart review, lab review, review of studies, review of inpatient medication list History of Present Illness Pt seen and examined + Diarrhea. BRBPR slowing down, felt to represent recurrent hemorrhoidal bleeding No dyspnea. No chest pain. No palpitations. No lightheadedness or dizziness. Telemetry: Atrial fibrillation currently in the 60's. Multiform PVCs, couiplets. no significant bradyarrhythmias or pauses. No further wide complex tachycardia runs. November 21, 2016 TTE Interpretation Summary ([facility], Dr. Kim): The left ventricle is normal in size. There is moderate concentric left ventricular hypertrophy. Left ventricular systolic function is normal. The left ventricular wall motion is normal. Ejection Fraction = 65-70%. The right ventricular cavity size is enlarged (proximal parasternal long axis right ventricular outflow tract dimension >3.3 cm). The left atrium is moderately dilated. The right atrium is severely dilated. The aortic valve is trileaflet. The aortic valve leaflets are heavily calcified. Moderate to severe valvular aortic stenosis. There is mild mitral regurgitation. There is mild tricuspid regurgitation. Right ventricular systolic pressure is elevated at 50-60mmHg. Allergies Coded Allergies: No Known Allergies (Unverified , `, 11/19/16) Social History Smoking Status: Former Smoker Hx Tobacco Use In Past Year?: No Hx Alcohol Use - Type And Amou: Yes (BEER ON OCCASION) Hx Substance Use - Type And Am: No Problem List Medical Problems: (1) Atrial fibrillation with rapid ventricular response Status: Acute (2) COPD (chronic obstructive pulmonary disease) Status: Chronic (3) History of bladder cancer Status: Chronic (4) History of prostate cancer Status: Chronic (5) Hypertension Status: Chronic (6) Pulmonary hypertension Status: Acute Physical Exam Vital Signs Last Vital Signs Documentation Date Time Temp Pulse Resp B/P Pulse Ox O2 Delivery O2 Flow Rate FiO2 11/27/16 07:48 36.9 84 18 160/80 96 11/27/16 04:00 Room Air 11/27/16 03:51 Physical Exam Constitutional: Level of Distress: NAD Psychiatric: Orientation: to time, to place, to person Head: normocephalic, atraumatic Neck: pertinent finding (Normal JVP) Lungs: Auscultation: no wheezing, no rales/crackles, no rhonchi, deminished air movement, decreased breath sounds Cardiovascular: Heart Auscultation: no rubs, II/ CHRIS, irregular rate rhythm Abdomen: Inspection & Palpation: soft, non-distended Extremities: no cyanosis, no edema, no clubbing Neurologic: Cranial Nerves: grossly intact Assessment and Plan Assessment and Plan Atrial fibrillation Rates fairly well controlled Continue metoprolol and digoxin as presently prescribed. Heparin held this morning in preparation for a right supraclavicular lymph node biopsy with patient now declining evaluation/treatment in this regard. Currently with improving bright red blood per rectum suggestive of hemorrhoidal bleeding. Follow-up CBC requested. Further evaluation as per hospitalist. Benefits of Coumadin anticoagulation still appear to outweigh the risks. Would target an INR of 2.0 to 2.5 Valvular heart disease Medical management. Hypertension Target SBP 130-150 given valvular issues Follow. CARDIOLOGY ATTENDING ADDENDUM: The patient was seen and personally examined. Agree with David Hidalgo PA-C's findings and plans as documented above. Laboratory Results Last 24 Hours Test 11/26/16 13:51 11/27/16 06:05 11/27/16 09:56 Activated Partial Thromboplast Time 60.0 SECONDS 74.1 SECONDS Partial Thromboplastin Ratio 2.3 2.8 Prothrombin Time 18.3 SECONDS Prothromb Time International Ratio 1.7
--- NOTE | 2016-11-27 10:53 | Progress Note ---
Internal Med Progress Note Date of Service: Nov 27, 2016. Provider Documentation: SUBJECTIVE: Patient is c/o diarrhea - 3-4 times today, loose watery and has some fresh red blood. c/o bottom being sore from it No dizziness associated with it. No SOB, Cough, fever, chills, night sweats, anorexia, nausea, vomiting, abdominal pain Not hypoxic, on RA Tele- A fib with rate controlled in 70s 17 beat wide complex tachycardia on 11/25/16 OBJECTIVE: Vital Signs-as noted below Exam: General-AAOX3, no distress Neck-no neck masses Lungs-cta b/l no wheezing or crackles Heart- Murmurs + Abdomen-soft bowel sounds present non tender no distension Extremities- no erythema no edema Neuro-Grossly no focal deficits Lab data as noted below. ASSESSMENT & PLAN: ASSESSMENT & PLAN: 86 year old male presents to the ED from Dr. Adames's office for further evaluation of Afib with RVR. Patient diagnosed on 10/30 in PCPs office, started on Carvedilol but patient had progressive SOB and fatigue so he stopped medication last week. Currently on po Lopressor and digoxin. ATRIAL FIBRILLATION WITH RVR : Rate controlled with HR in 70s; HR did drop transiently to 40s twice, but asymptomatic -Continue with lopressor, Digoxin PO . -On IV Heparin/Coumadin bridging, INR 1.7. Coumadin was held yesterday by CT surgery for possible procedure today. CHADVASC score - 2 -Appreciate cardiology inputs PLAN: Discontinue IV Heparin as hemorrhoidal bleeding, platelets -108, risk of bleeding with bridging. No prior hx of stroke/TIA. DIARRHEA -Has 3-4 loose water diarrhea -Rule out c diff -Reviewed med list- not on any laxatives -Monitor HEMORRHOIDAL BLEEDING -In setting of bridging with IV heparin/Coumadin for atrial fibrillation -Has been having mild bleeding on and off in past 2-3 days while on IV heparin, but as HB stable, no significant bleeding continued with IV Heparin. Today however with diarrhea -3-4 BMs with blood, will stop IV Heparin -Monitor H & H -GI had evaluated patient for aspiration/dysphagia, but patient had refused to go for any invasive scopes. -Will continue to monitor while on coumadin for hemorrhoidal bleeding. ACUTE ON CHRONIC SYSTOLIC/DIASTOLIC CHF : Resolved ACUTE HYPOXIC RESPIRATORY FAILURE Most Likely secondary to A fib with RVR , Acute systolic and diastolic chf, Pulmonary HTN. EF 40% S/P IV Lasix--> Changed to PO lasix -CXR- improvement noted. Echo shows -revealed normal LVEF, mild MR, mild TR, moderate to severe , mod to severe pulmonary HTN PNEUMONIA- Improved -Cxr possible bibasilar consolidation possible aspiration pneumonitis -IV Unasyn/Doxycycline--> Changed to clindamycin -Speech evaluation- Video swallow test - No aspiration, moderately disordered hypopharyngeal, oral motility, trace penetration, recommended GI evaluation -Tolerating PO - slippery diet with aspiration/GERD precautions -GI evaluation done- had these issues in past too- offered procedures- dilation /EGD but refused invasive procedures as currently feels well with no issues BULKY MEDIASTINAL LYMPHADENOPATHY per CT scan Chest -CT surgery was consulted for possible biopsy -Cardiology evaluated for perioperative risk and with valvular heart disease, a very high risk for cardiopulmonary complications, so surgery was cancelled after a discussion with daughter Arianna and patient. Today was scheduled for US guided FNAC of Right supraclavicular LN, but patient/daughter refused to go for procedure, as he does not want to have any therapeutic intervention done if it is cancer and would not want to even get a diagnosis. -Patient understands the risk that this could be cancer if not diagnosed, but refuses. HTN, Underlying, newly diagnosed BP elevated -On lopressor, newly started on norvasc- increased to 5 mg on 11/26/16 COPD 64 pack year history On prn albuterol stable currently CKD STAGE 3 Crea stable near baseline -Monitor. PULMONARY HTN -Estimated pulmonary artery systolic pressure - 78 mmHg VALVULAR DISEASE Severe , TR, Moderate MR -Cardiology on board, [facility] NODULE incidental finding of outpatient CXR. 5mm nodule RUL -Repeat CT scan chest- does not mention about nodule, but findings as above H/O BLADDER CA follows with Dr. Cabrera DVT PROPHYLAXIS: On Heparin gtt and coumadin DISPOSITION Tele monitoring PT/OT Recommends return to home Vital Signs: Date Time Temp Pulse Resp B/P Pulse Ox O2 Delivery O2 Flow Rate FiO2 11/27/16 08:00 96 Room Air 11/27/16 07:48 36.9 84 18 160/80 96 11/27/16 04:00 92 Room Air 11/27/16 03:51 36.3 79 19 144/84 92 Room Air 11/26/16 23:59 95 Room Air 11/26/16 23:51 36.4 72 19 138/79 96 Nasal Cannula 0.5 11/26/16 20:00 Nasal Cannula 0.5 11/26/16 19:29 36.3 68 15 146/75 94 Nasal Cannula 0.5 11/26/16 16:00 Nasal Cannula 0.5 11/26/16 15:51 81 11/26/16 15:21 36.4 78 18 152/81 96 Nasal Cannula 0.5 11/26/16 14:36 95 11/26/16 12:00 87 Room Air 11/26/16 12:00 Nasal Cannula 1.0 11/26/16 11:42 36.8 86 18 149/76 95 Lab Results: Results Past 24 Hours Test 11/26/16 13:51 11/27/16 06:05 Range/Units Activated Partial Thromboplast Time 60.0 74.1 21.0-31.0 SECONDS Partial Thromboplastin Ratio 2.3 2.8 Prothrombin Time 18.3 9.0-12.0 SECONDS Prothromb Time International Ratio 1.7 0.9-1.1
[2016-11-27 11:03] LABS: BUN/CREATININE RATIO 14.4 (10-20); CALCIUM 8.8 mg/dl (8.5-10.1); CREATININE 1.2 mg/dl (0.60-1.40); POTASSIUM 3.4 mmol/L (3.5-5.1)
[2016-11-27 11:13] LABS: HEMATOCRIT 40.8 % (42-52); MEAN CELL VOLUME 94.2 fL (80-100); MEAN CORPUSCULAR HEMOGLOBIN 30.3 pg (25-34); MEAN CORPUSCULAR HGB CONC 32.1 g/dl (32-36); MEAN PLATELET VOLUME 12.1 fL (7.4-10.4); PLATELET COUNT 120 K/uL (130-400); PLT ESTIMATE DECREASED; RED BLOOD COUNT 4.33 M/uL (4.7-6.1); WHITE BLOOD COUNT 6.26 K/uL (4.8-10.8)
[2016-11-27] MEDS: DIGOXIN 0.125 MG TAB PO SCH (16:43)
[2016-11-27] MEDS: WARFARIN SOD 7.5 MG TAB PO SCH (16:44)
[2016-11-27] MEDS: SACCHAROMYCES BOUL (FLORASTOR) 250 MG CAP PO SCH (20:33)
[2016-11-28] VITALS (8 sets, daily range): BP systolic 119–150; BP diastolic 54–81; PULSE 67–83; TEMP 36.4–36.9; O2SAT 91–97
[2016-11-28] MEDS: CLINDAMYCIN HCL 150 MG CAP PO SCH ×2 (05:53→14:42)
[2016-11-28 06:57] LABS: HEMATOCRIT 39.6 % (42-52); MEAN CELL VOLUME 93.6 fL (80-100); MEAN CORPUSCULAR HEMOGLOBIN 30.5 pg (25-34); MEAN CORPUSCULAR HGB CONC 32.6 g/dl (32-36); MEAN PLATELET VOLUME 11.2 fL (7.4-10.4); PLATELET COUNT 118 K/uL (130-400); RED BLOOD COUNT 4.23 M/uL (4.7-6.1); WHITE BLOOD COUNT 7.31 K/uL (4.8-10.8)
[2016-11-28 07:08] LABS: INR 1.5 (0.9-1.1); PROTHROMBIN TIME (PATIENT) 16.2 SECONDS (9.0-12.0)
[2016-11-28 07:39] LABS: CALCIUM 8.7 mg/dl (8.5-10.1); CREATININE 1.2 mg/dl (0.60-1.40); POTASSIUM 3.5 mmol/L (3.5-5.1)
[2016-11-28] MEDS: ASPIRIN 81 MG ECTAB PO SCH (07:44)
[2016-11-28] MEDS: LACTOBACILLUS ACIDOPHILUS (FLORANEX) TAB PO SCH (07:45)
[2016-11-28] MEDS: SACCHAROMYCES BOUL (FLORASTOR) 250 MG CAP PO SCH (07:45)
[2016-11-28] MEDS: FUROSEMIDE 20 MG TAB PO SCH (07:46)
[2016-11-28] MEDS: METOPROLOL TARTRATE 25 MG TAB PO SCH ×2 (07:46→16:08)
[2016-11-28] MEDS: MULTIVITAMIN TAB PO SCH (07:47)
[2016-11-28] MEDS: AMLODIPINE BESYLATE 5 MG TAB PO SCH (07:47)
[2016-11-28] MEDS: CALCIUM CARBONATE 1250MG TAB PO SCH (07:47)
[2016-11-28] MEDS: CHOLECALCIFEROL 1000 INTER.UNIT TAB PO SCH (07:48)
[2016-11-28] MEDS: PANTOprazole SOD 40 MG TAB PO SCH (09:00)
--- NOTE | 2016-11-28 09:16 | Cardiology Follow-Up ---
Subjective General Date of Service: Nov 28, 2016. Chief Complaint: follow up shortenss of breath Pt evaluation today including: conversation w/ patient, physical exam, chart review, lab review, review of studies, review of inpatient medication list History of Present Illness Pt seen and examined. Stable dyspnea. No chest pain. No tachypalpitations. No lightheadedness or dizziness. Diarrhea improved. Significantly improved bright red blood per rectum. 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 Telemetry: Atrial fibrillation currently in the 90's. His ventricular response has ranged from 40 to 150 bpm over the past 24 hours, averaging in the 80's. No significant bradyarrhythmias or pauses. No further wide complex tachycardia runs. November 21, 2016 TTE Interpretation Summary ([facility], Dr. Kim): The left ventricle is normal in size. There is moderate concentric left ventricular hypertrophy. Left ventricular systolic function is normal. The left ventricular wall motion is normal. Ejection Fraction = 65-70%. The right ventricular cavity size is enlarged (proximal parasternal long axis right ventricular outflow tract dimension >3.3 cm). The left atrium is moderately dilated. The right atrium is severely dilated. The aortic valve is trileaflet. The aortic valve leaflets are heavily calcified. Moderate to severe valvular aortic stenosis. There is mild mitral regurgitation. There is mild tricuspid regurgitation. Right ventricular systolic pressure is elevated at 50-60mmHg. Allergies Coded Allergies: No Known Allergies (Unverified , `, 11/19/16) Social History Smoking Status: Former Smoker Hx Tobacco Use In Past Year?: No Hx Alcohol Use - Type And Amou: Yes (BEER ON OCCASION) Hx Substance Use - Type And Am: No Problem List Medical Problems: (1) Atrial fibrillation with rapid ventricular response Status: Acute (2) COPD (chronic obstructive pulmonary disease) Status: Chronic (3) History of bladder cancer Status: Chronic (4) History of prostate cancer Status: Chronic (5) Hypertension Status: Chronic (6) Pulmonary hypertension Status: Acute Physical Exam Vital Signs Last Vital Signs Documentation Date Time Temp Pulse Resp B/P Pulse Ox O2 Delivery O2 Flow Rate FiO2 11/28/16 07:41 36.9 83 20 132/73 95 Nasal Cannula 1.0 Physical Exam Constitutional: Level of Distress: NAD Psychiatric: Orientation: to time, to place, to person Head: normocephalic, atraumatic Neck: pertinent finding (Normal JVP) Lungs: Auscultation: no wheezing, no rales/crackles, no rhonchi, deminished air movement, decreased breath sounds Cardiovascular: Heart Auscultation: no rubs, II/ CHRIS, irregular rate rhythm Abdomen: Inspection & Palpation: soft, non-distended Extremities: no cyanosis, no edema, no clubbing Neurologic: Cranial Nerves: grossly intact Assessment and Plan Assessment and Plan Atrial fibrillation Rates fairly well controlled Continue metoprolol and digoxin as prescribed. 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 Benefits of Coumadin anticoagulation appear to outweigh the risks. Target an INR of 2.0 to 2.5, discontinuing anticoagulation with progressive anemia, recurrent bleeding, increased ambulatory dysfunction, falls, etc. Valvular heart disease Medical management. Hypertension Target SBP 130-150 given valvular issues Follow. CARDIOLOGY ATTENDING ADDENDUM: The patient was seen and personally examined. Agree with David Hidalgo PA-C's findings and plans as documented above with additions as outlined below. Patient without any complaints. His comfortable. Ventricular rates are well controlled on telemetry. Impression: Problem list as outlined above. In addition patient has mediastinal lymphadenopathy. He is at significantly high risk for complication with general anesthesia, biopsy was discussed. Thoracic surgery input is noted and much appreciated. Patient declines further workup for his lymphadenopathy with the knowledge that a cancer may be present. Recommend continue Coumadin therapy as an outpatient without bridge therapy. Patient will need outpatient follow-up with me or Mr. Hidalgo within 2-4 weeks , and anticoagulation clinic follow-up. He is stable from my standpoint for discharge. Laboratory Results Last 24 Hours Test 11/28/16 06:43 White Blood Count 7.31 K/uL Red Blood Count 4.23 M/uL Hemoglobin 12.9 g/dL Hematocrit 39.6 % Mean Corpuscular Volume 93.6 fL Mean Corpuscular Hemoglobin 30.5 pg Mean Corpuscular Hemoglobin Concent 32.6 g/dl RDW Standard Deviation 46.4 fL RDW Coefficient of Variation 13.5 % Platelet Count 118 K/uL Mean Platelet Volume 11.2 fL Prothrombin Time 16.2 SECONDS Prothromb Time International Ratio 1.5 Sodium Level 136 mmol/L Potassium Level 3.5 mmol/L Chloride Level 94 mmol/L Carbon Dioxide Level 37 mmol/L Anion Gap 5.0 mmol/L Blood Urea Nitrogen 19 mg/dl Creatinine 1.20 mg/dl Est Creatinine Clear Calc Drug Dose 46.7 ml/min Estimated GFR () 62.2 Estimated GFR (Non- 53.7 BUN/Creatinine Ratio 16.0 Random Glucose 113 mg/dl Calcium Level 8.7 mg/dl
--- NOTE | 2016-11-28 10:58 | Progress Note ---
Internal Med Progress Note Date of Service: Nov 28, 2016. Provider Documentation: SUBJECTIVE: Patient is doing much better today. Diarrhea has improved, frequency down and consistency solid, with minimal hemorrhoidal bleed- almost resolved. No dizziness associated with it. No SOB, Cough, fever, chills, night sweats, anorexia, nausea, vomiting, abdominal pain Tele- A fib with rate controlled in 70s 17 beat wide complex tachycardia on 11/25/16- none after that OBJECTIVE: Vital Signs-as noted below Exam: General-AAOX3, no distress Neck-no neck masses Lungs-cta b/l no wheezing or crackles Heart- Murmurs + Abdomen-soft bowel sounds present non tender no distension Extremities- no erythema no edema Neuro-Grossly no focal deficits Lab data as noted below. ASSESSMENT & PLAN: ASSESSMENT & PLAN: 86 year old male presents to the ED from Dr. Adames's office for further evaluation of Afib with RVR. Patient diagnosed on 10/30 in PCPs office, started on Carvedilol but patient had progressive SOB and fatigue so he stopped medication last week. Currently on po Lopressor and digoxin. ATRIAL FIBRILLATION WITH RVR : Rate controlled with HR in 70s; HR did drop transiently to 40s twice, but asymptomatic -Continue with lopressor, Digoxin PO per cardiology. -On coumadin. Heparin IV was discontinued on 11/27/16 as had hemorrhoidal bleeding/low platelets. Discussed with cardiology today- patient is known to Dr Adames- no indication for bridging. CHADVASC score - 2 -Appreciate cardiology inputs PLAN: Does have some hemorrhoidal bleeding, which has improved, almost resolved today. Hb 12.9, not a significant drop from last 2 days. Discussed with cardiology- benefits of anticoagulation still outweigh the risks. Will continue with coumadin with goal of 2-2.5. Needs close outpatient coumadin clinic follow up. If worsening of bleeding, will need to re evaluate for risks vs benefits for anticoagulation DIARRHEA- Improved Per patient, consistency solid today and frequency better. Per patient, had no blood on wiping with his tissue paper. -Ruled out c diff -Reviewed med list- not on any laxatives HEMORRHOIDAL BLEEDING -In setting of bridging with IV heparin/Coumadin for atrial fibrillation and hx of proctitis with radiation for prostate carcinoma -Has been having mild bleeding on and off in past 2-3 days while on IV heparin, but as HB stable, no significant bleeding continued with IV Heparin. However, as had increased number of BMs yesterday with some blood--> Discontinued IV Heparin, but continued with coumadin -Today hemorrhoidal bleeding has almost resolved, Hb stable for past 3 days. -Monitor H & H outpatient while on coumadin. If worsening of bleeding, will have to re evaluate risks vs benefits for anticoagulation. -GI had evaluated patient for aspiration/dysphagia, but patient had refused to go for any invasive scopes. ACUTE ON CHRONIC SYSTOLIC/DIASTOLIC CHF : Resolved ACUTE HYPOXIC RESPIRATORY FAILURE Most Likely secondary to A fib with RVR , Acute systolic and diastolic chf, Pulmonary HTN. EF 40% S/P IV Lasix--> Changed to PO lasix -CXR- improvement noted. Echo shows -revealed normal LVEF, mild MR, mild TR, moderate to severe , mod to severe pulmonary HTN PNEUMONIA- Improved -Cxr possible bibasilar consolidation possible aspiration pneumonitis -IV Unasyn/Doxycycline--> Changed to clindamycin -Speech evaluation- Video swallow test - No aspiration, moderately disordered hypopharyngeal, oral motility, trace penetration, recommended GI evaluation -Tolerating PO - slippery diet with aspiration/GERD precautions -GI evaluation done- had these issues in past too- offered procedures- dilation /EGD but refused invasive procedures as currently feels well with no issues BULKY MEDIASTINAL LYMPHADENOPATHY per CT scan Chest -CT surgery was consulted for possible biopsy -Cardiology evaluated for perioperative risk and with valvular heart disease, a very high risk for cardiopulmonary complications, so surgery was cancelled after a discussion with daughter Arianna and patient. Was scheduled for US guided FNAC of Right supraclavicular LN, but patient/daughter refused to go for procedure, as he does not want to have any therapeutic intervention done if it is cancer and would not want to even get a diagnosis. -Patient understands the risk that this could be cancer if not diagnosed, but refuses. HTN, Underlying, newly diagnosed BP elevated -On lopressor, newly started on norvasc- increased to 5 mg on 11/26/16 COPD 64 pack year history On prn albuterol stable currently CKD STAGE 3 Crea stable near baseline -Monitor. PULMONARY HTN -Estimated pulmonary artery systolic pressure - 78 mmHg VALVULAR DISEASE Severe , TR, Moderate MR -Cardiology on board, [place] NODULE incidental finding of outpatient CXR. 5mm nodule RUL -Repeat CT scan chest- does not mention about nodule, but findings as above H/O BLADDER CA follows with Dr. Cabrera DVT PROPHYLAXIS: Coumadin DISPOSITION OKAY to discharge home today. Eager to be discharged Updated daughter about discharge plan PT/OT Recommends return to home Vital Signs: Date Time Temp Pulse Resp B/P Pulse Ox O2 Delivery O2 Flow Rate FiO2 11/28/16 07:41 36.9 83 20 132/73 95 Nasal Cannula 1.0 11/28/16 04:00 Nasal Cannula 2.0 11/28/16 03:25 36.5 70 19 150/81 97 Nasal Cannula 2.0 11/28/16 00:02 Nasal Cannula 2.0 11/27/16 23:52 36.2 69 21 132/73 94 Nasal Cannula 2.0 11/27/16 20:00 Nasal Cannula 1.0 11/27/16 19:16 36.4 70 18 133/72 96 Nasal Cannula 1.0 11/27/16 16:43 74 11/27/16 16:00 97 Room Air 11/27/16 15:37 36.4 84 18 158/65 90 Nasal Cannula 2.0 11/27/16 12:00 95 Room Air 11/27/16 11:22 36.8 75 18 150/70 95 Lab Results: Results Past 24 Hours Test 11/28/16 06:43 Range/Units White Blood Count 7.31 4.8-10.8 K/uL Red Blood Count 4.23 4.7-6.1 M/uL Hemoglobin 12.9 14.0-18.0 g/dL Hematocrit 39.6 42-52 % Mean Corpuscular Volume 93.6 80-100 fL Mean Corpuscular Hemoglobin 30.5 25-34 pg Mean Corpuscular Hemoglobin Concent 32.6 32-36 g/dl RDW Standard Deviation 46.4 36.4-46.3 fL RDW Coefficient of Variation 13.5 11.5-14.5 % Platelet Count 118 130-400 K/uL Mean Platelet Volume 11.2 7.4-10.4 fL Prothrombin Time 16.2 9.0-12.0 SECONDS Prothromb Time International Ratio 1.5 0.9-1.1 Sodium Level 136 136-145 mmol/L Potassium Level 3.5 3.5-5.1 mmol/L Chloride Level 94 98-107 mmol/L Carbon Dioxide Level 37 21-32 mmol/L Anion Gap 5.0 3-11 mmol/L Blood Urea Nitrogen 19 7-18 mg/dl Creatinine 1.20 0.60-1.40 mg/dl Est Creatinine Clear Calc Drug Dose 46.7 ml/min Estimated GFR () 62.2 Estimated GFR (Non- 53.7 BUN/Creatinine Ratio 16.0 10-20 Random Glucose 113 70-99 mg/dl Calcium Level 8.7 8.5-10.1 mg/dl Microbiology Results 11/27/16 C.difficile Toxin B Gene (PCR) - Final, Complete No C. difficile toxin B gene detected
[2016-11-28] MEDS ORDERED: LCTX PO (11:01)
[2016-11-28] MEDS ORDERED: LNX125 PO (11:01)
[2016-11-28] MEDS ORDERED: LSX20 PO (11:01)
[2016-11-28] MEDS ORDERED: WARF5TAB90 PO (11:01)
[2016-11-28] MEDS ORDERED: METO50TA17 PO (11:01)
[2016-11-28] MEDS ORDERED: NRV5 PO (11:01)
--- NOTE | 2016-11-28 11:06 | Discharge Instructions ---
Discharge Instructions Date of Service Nov 28, 2016. Admission Reason for Admission: Atrial Fibrillation With Rvr, Hypoxia Discharge Discharge Diagnosis / Problem: 1. Atrial fibrillation with RVR Discharge Goals Goal(s): Decrease discomfort, Improve function, Prevent Disease Progression Activity Recommendations Activity Limitations: resume your previous activity (as tolerated prior to admission) . Instructions / Follow-Up Instructions / Follow-Up MEDICATION CHANGES: 1. New medication: Digoxin PO daily as instructed 2. New medication: Metoprolol 50 mg PO BID 3. New medication: Coumadin 7.5 mg po daily at 4:00 PM, including today evening 4. New medication: Lasix 20 mg daily PO 5. 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 FOLLOW UP -Follow up with PCP Dr Celeste on 12/05/16 at 12:45 PM -Follow up with cardiology as scheduled -Follow up with coumadin clinic. Current Hospital Diet Patient's current hospital diet: AHA Diet (Heart Healthy) Discharge Diet Recommended Diet: AHA Diet (Heart Healthy) (Slippery diet with aspiration/GERD precautions) Pending Studies Studies pending at discharge: no Medical Emergencies . Who to Call and When: Medical Emergencies: If at any time you feel your situation is an emergency, please call 911 immediately. . Non-Emergent Contact Non-Emergency issues call your: Primary Care Provider . . "Provider Documentation" section prepared by Yessy Boo. . VTE Core Measure Inpt VTE Proph given/why not?: Warfarin (Coumadin), Other Anticoagulation (IV Heparin)
[2016-11-28] MEDS: DIGOXIN 0.125 MG TAB PO SCH (16:06)
[2016-11-28] MEDS: WARFARIN SOD 7.5 MG TAB PO SCH (16:06)
--- NOTE | 2016-11-28 16:12 | Discharge Summary ---
Discharge Summary Date of Service Nov 28, 2016. Discharge Summary Admission Date: Nov 19, 2016 at 15:46 Discharge Date: Nov 28, 2016 Discharge Disposition: Home Principal Diagnosis: 1. Atrial fibrillation with RVR 2. Acute hypoxic respiratory failure, newly started on oxygen 3. Pneumonia, possibly aspiration 4. CHF exacerbation- Valvular/diastolic/Systolic 5. Bulky mediastinal lymphadenopathy Secondary Diagnoses/Problems: 1. HTN 2. CKD-III 3. COPD 4. Pulmonary HTN 5. Valvular heart disease- Severe , TR, Moderate MR 6. Pulmonary nodule 7. Hx of bladder carcinoma Procedures: Tele monitoring IV heparin/Coumadin IV antibiotics Video swallow test CXR X 2 CT chest PT/OT Speech rx Consultations: Cardiology GI CT surgery PT/OT Speech Pending Studies/Follow-Up: . Instructions / Follow-Up Instructions / Follow-Up MEDICATION CHANGES: 1. New medication: Digoxin PO daily as instructed 2. New medication: Metoprolol 50 mg PO BID 3. New medication: Coumadin 7.5 mg po daily at 4:00 PM, including today evening 4. New medication: Lasix 20 mg daily PO 5. 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 FOLLOW UP -Follow up with PCP Dr Celeste on 12/05/16 at 12:45 PM -Follow up with cardiology as scheduled -Follow up with coumadin clinic. Medication Reconciliation New Medications: Metoprolol Tartrate (Metoprolol Tartrate) 50 Mg Tab 50 MG PO BID for 30 Days, #60 TAB Warfarin Sodium (Coumadin) 5 Mg Tab 7.5 MG PO DAILY for 10 Days, #15 TAB Amlodipine Besylate (Amlodipine Besylate) 5 Mg Tab 5 MG PO QAM for 30 Days, #30 TAB 2 Refills Digoxin (Digoxin) 0.125 Mg Tab 0.125 MG PO DAILY@16 for 30 Days, #30 TAB 2 Refills Furosemide (Furosemide) 20 Mg Tab 20 MG PO QAM for 30 Days, #30 TAB 2 Refills Lactobacillus Acidophilus (Floranex) 1 Tab Tab 2 TAB PO BID for 30 Days, #120 TAB Continued Medications: Albuterol Hfa (Ventolin Hfa) 200 Puffs/37392 Mcg Aers 2 PUFFS INH TID PRN for SOB/Wheezing, #1 INHALER Aspirin (Aspirin Chewable) 81 Mg Chew 81 MG PO DAILY Calcium Carbonate (Calcium) 600 Mg Tab 2 TAB PO DAILY Cholecalciferol (Vitamin D) 1,000 Unit Tab 1 TAB PO DAILY Multivitamin (Multivitamin) Tab 1 TAB PO DAILY, TAB Admission Information HPI (per Admitting provider): Patient seen and examined. 86 year old male with PMHx of COPD, Bladder CA, CKD stage 3, and other problems listed below presents to the ED complaining of Afib from Dr. Adames's office. Patient reports he has been feeling tired and SOB for about a month. He states he saw his PCP on 10/30 for a checkup and was found to be in Afib. He was started on carvedilol but reports his fatigue and SOB worsened so he called his PCP and stopped that medication about a week ago. Since then he continues to have no energy. He reports he usually rides a stationary bike 45 minutes a day but in the past week he can hardly walk across the room without becoming SOB. He report he saw his PCP last week and was still in Afib so he was scheduled for an echocardiogram today. Echo revealed that the patient was in Afib with RVR with rates in the 130s. He had severe pulmonary HTN and multiple valvular abnormalities. He was seen by Dr. Adames and referred to the ED for further workup. He denies fevers, chills, URI symptoms, chest pain, palpitations, nausea, vomiting, diarrhea, dysuria, calf pain and edema. He takes a baby aspirin daily, he denies any bleeding. He states he took a full dose aspirin for 20 years but then had some mild bleeding so he decreased to the baby Aspirin. He denies history of heart problems.In the ED patient is hypoxic on RA, HR is in the 130s, EKG shows afib, Deonna are negative x 1, Lytes are stable. He received Lopressor 5mg IV x 3 doses and rate has improved to the low 100s. He will be admitted for further workup and treatment. Physical Exam (per Admitting): General Appearance: + pertinent finding (Pleasant WD/WN 86 year old female lying in bed in NAD with daughter at bedside ) Head: normocephalic, atraumatic Eyes: PERRL, EOMI, sclerae normal ENT: hearing grossly normal, pharynx normal Neck: supple, no JVD Respiratory/Chest: chest non-tender, lungs clear, normal breath sounds, no respiratory distress, no accessory muscle use Cardiovascular: no gallop, no JVD, normal peripheral pulses, + irregularly irregular (rate 110s) Abdomen/GI: normal bowel sounds, non tender, soft Back: normal inspection, no muscle spasm Extremities/Musculoskelatal: no calf tenderness, normal capillary refill, + pedal edema (trace) Neurologic/Psych: alert, oriented x 3, + pertinent finding (no focal deficits ) Skin: normal color, warm/dry, no rash Lymphatic: no adenopathy Hospital Course ASSESSMENT & PLAN: 86 year old male presents to the ED from Dr. Adames's office for further evaluation of Afib with RVR. Patient diagnosed on 10/30 in PCPs office, started on Carvedilol but patient had progressive SOB and fatigue so he stopped medication last week. Currently on po Lopressor and digoxin. ATRIAL FIBRILLATION WITH RVR : Rate controlled with HR in 70s; HR did drop transiently to 40s twice, but asymptomatic -Continue with lopressor, Digoxin PO per cardiology. -On coumadin. Heparin IV was discontinued on 11/27/16 as had hemorrhoidal bleeding/low platelets. Discussed with cardiology today- patient is known to Dr Adames- no indication for bridging. CHADVASC score - 2 -Appreciate cardiology inputs PLAN: Does have some hemorrhoidal bleeding, which has improved, almost resolved today. Hb 12.9, not a significant drop from last 2 days. Discussed with cardiology- benefits of anticoagulation still outweigh the risks. Will continue with coumadin with goal of 2-2.5. Needs close outpatient coumadin clinic follow up. If worsening of bleeding, will need to re evaluate for risks vs benefits for anticoagulation ACUTE ON CHRONIC SYSTOLIC/DIASTOLIC/VALVULAR CHF : Resolved ACUTE HYPOXIC RESPIRATORY FAILURE Most Likely secondary to A fib with RVR , Acute systolic and diastolic chf, Pulmonary HTN. EF 40% S/P IV Lasix--> Changed to PO lasix -CXR- improvement noted. Echo shows -revealed normal LVEF, mild MR, mild TR, moderate to severe , mod to severe pulmonary HTN -On oxygen 2 L day/night per 2 step - unable to wean him off likely multifactorial reasons: CHF, COPD, Pneumonia, Pulmonary HTN, Valvular heart disease PNEUMONIA- Improved -Cxr possible bibasilar consolidation possible aspiration pneumonitis -IV Unasyn/Doxycycline--> Changed to clindamycin - completed total of 10 days of rx -Speech evaluation- Video swallow test - No aspiration, moderately disordered hypopharyngeal, oral motility, trace penetration, recommended GI evaluation -Tolerating PO - slippery diet with aspiration/GERD precautions -GI evaluation done- had these issues in past too- offered procedures- dilation /EGD but refused invasive procedures as currently feels well with no issues -Unable to wean off oxygen DIARRHEA- Improved Per patient, consistency solid today and frequency better. Per patient, had no blood on wiping with his tissue paper. -Ruled out c diff -Reviewed med list- not on any laxatives HEMORRHOIDAL BLEEDING -In setting of bridging with IV heparin/Coumadin for atrial fibrillation and hx of proctitis with radiation for prostate carcinoma -Has been having mild bleeding on and off in past 2-3 days while on IV heparin, but as HB stable, no significant bleeding continued with IV Heparin. However, as had increased number of BMs yesterday with some blood--> Discontinued IV Heparin, but continued with coumadin -Today hemorrhoidal bleeding has almost resolved, Hb stable for past 3 days. -Monitor H & H outpatient while on coumadin. If worsening of bleeding, will have to re evaluate risks vs benefits for anticoagulation. -GI had evaluated patient for aspiration/dysphagia, but patient had refused to go for any invasive scopes. BULKY MEDIASTINAL LYMPHADENOPATHY per CT scan Chest -CT surgery was consulted for possible biopsy -Cardiology evaluated for perioperative risk and with valvular heart disease, a very high risk for cardiopulmonary complications, so surgery was cancelled after a discussion with daughter Arianna and patient. Was scheduled for US guided FNAC of Right supraclavicular LN, but patient/daughter refused to go for procedure, as he does not want to have any therapeutic intervention done if it is cancer and would not want to even get a diagnosis. -Patient understands the risk that this could be cancer if not diagnosed, but refuses. HTN, Underlying, newly diagnosed BP elevated -On lopressor, newly started on norvasc- increased to 5 mg on 11/26/16 COPD 64 pack year history On prn albuterol stable currently CKD STAGE 3 Crea stable near baseline -Monitor. PULMONARY HTN -Estimated pulmonary artery systolic pressure - 78 mmHg VALVULAR DISEASE Severe , TR, Moderate MR -Cardiology on board, LAYTON NODULE incidental finding of outpatient CXR. 5mm nodule RUL -Repeat CT scan chest- does not mention about nodule, but findings as above H/O BLADDER CA follows with Dr. Cabrera DVT PROPHYLAXIS: Coumadin DISPOSITION OKAY to discharge home today. Eager to be discharged Updated daughter about discharge plan PT/OT Recommends return to home Total time spent on discharge = 45 minutes This includes examination of the patient, discharge planning, medication reconciliation, and communication with other providers. Discharge Instructions Discharge Diagnosis / Problem: 1. Atrial fibrillation with RVR Discharge Goals Goal(s): Decrease discomfort, Improve function, Prevent Disease Progression Activity Recommendations Activity Limitations: resume your previous activity (as tolerated prior to admission) . Instructions / Follow-Up Instructions / Follow-Up MEDICATION CHANGES: 1. New medication: Digoxin PO daily as instructed 2. New medication: Metoprolol 50 mg PO BID 3. New medication: Coumadin 7.5 mg po daily at 4:00 PM, including today evening 4. New medication: Lasix 20 mg daily PO 5. 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 FOLLOW UP -Follow up with PCP Dr Celeste on 12/05/16 at 12:45 PM -Follow up with cardiology as scheduled -Follow up with coumadin clinic. Current Hospital Diet Patient's current hospital diet: AHA Diet (Heart Healthy) Discharge Diet Recommended Diet: AHA Diet (Heart Healthy) Pending Studies Studies pending at discharge: no Medical Emergencies . Who to Call and When: Medical Emergencies: If at any time you feel your situation is an emergency, please call 911 immediately. . Non-Emergent Contact Non-Emergency issues call your: Primary Care Provider . . "Provider Documentation" section prepared by Yessy Boo. . VTE Core Measure Inpt VTE Proph given/why not?: Warfarin (Coumadin), Other Anticoagulation (IV Heparin)
[2017-01-13] MEDS ORDERED: ATROPS5 SL (20:46)
[2017-01-13] MEDS ORDERED: ATV1 SL (20:46)
[2017-01-13] MEDS ORDERED: SCOP1.5D2 TD (20:46)
[2017-01-13] MEDS ORDERED: RXNS5 PO (20:46)
== END 2016-11-28 19:50 | disposition home health service (06) | DRG 308 ==
LOC: ENRESERVDT → ENRESERVTM → EDBD 13:24 → C.EDA 13:26 → C.2T 15:46
PROVIDERS: ADMIT Hospitalist; ATTEND Internal Medicine
DX: I48.91 Unspecified atrial fibrillation (principal); J96.01 Acute respiratory failure with hypoxia; I50.43 Acute on chronic combined systolic (congestive) and diastolic (congestive) heart failure; J69.0 Pneumonitis due to inhalation of food and vomit; I13.0 Hypertensive heart and chronic kidney disease with heart failure and stage 1 through stage 4 chronic kidney disease, or unspecified chronic kidney disease; K64.9 Unspecified hemorrhoids; J44.9 Chronic obstructive pulmonary disease, unspecified; N18.3 Chronic kidney disease, stage 3 (moderate); Z85.51 Personal history of malignant neoplasm of bladder; Z85.46 Personal history of malignant neoplasm of prostate; Z84.89 Family history of other specified conditions; Z80.9 Family history of malignant neoplasm, unspecified; Z87.891 Personal history of nicotine dependence; Z79.82 Long term (current) use of aspirin; Z79.899 Other long term (current) drug therapy; I27.2 Other secondary pulmonary hypertension; I08.3 Combined rheumatic disorders of mitral, aortic and tricuspid valves; R91.1 Solitary pulmonary nodule; E78.5 Hyperlipidemia, unspecified; Z98.42 Cataract extraction status, left eye; Z83.6 Family history of other diseases of the respiratory system; R13.10 Dysphagia, unspecified; I47.2 Ventricular tachycardia; R19.7 Diarrhea, unspecified; K57.90 Diverticulosis of intestine, part unspecified, without perforation or abscess without bleeding; R59.0 Localized enlarged lymph nodes; K21.9 Gastro-esophageal reflux disease without esophagitis

== ENCOUNTER 2017-01-06 11:57 | Inpatient (IN) | payer OTHER, MEDICARE ==
[~2017-01-06] VITALS: Ht 182.9 cm; Wt 79.6 kg
[~2017-01-06 11:57] MED LIST changes: -ALBUAER2 INH; +CALC-393 PO; -CALCTAB5 PO; +LCTX PO; +LNX125 PO; +LSX20 PO; +METO50TA17 PO; +NRV5 PO; -NUTR-977 GJT; +VNTHFA/IN INH
[2017-01-06] MEDS ORDERED: ALBUT/IPRATROP 3MG/0.5MG NEB 3 ML VIAL ONE (12:19)
--- NOTE | 2017-01-06 12:56 | DIAGNOSTIC IMAGING REPORT ---
CHEST ONE VIEW PORTABLE CLINICAL HISTORY: Hypoxia, shortness of breath. COMPARISON STUDY: 11/23/2016 FINDINGS: The heart is borderline enlarged. There is aortic tortuosity. There are progressive bibasal airspace opacities. There are small pleural effusions. Underlying emphysema is suspected.[ There is soft tissue widening of the right para mediastinal region suspicious for adenopathy. IMPRESSION: 1. Mediastinal widening suspicious for adenopathy 2. Progressive bibasal airspace opacities suspicious for pneumonia 3. Small bilateral pleural effusions Electronically signed by: Rashad Cooper M.D. 01/06/2017 12:55 PM Dictated Date/Time: 01/06/2017 12:53 PM
[2017-01-06] MEDS ORDERED: ALBUT/IPRATROP 3MG/0.5MG NEB 3 ML VIAL INH STA (13:14)
[2017-01-06] MEDS ORDERED: PIPERACILLIN/TAZOBACTAM 4.5 GM/100ML D5W IV STA (13:15)
[2017-01-06] MEDS ORDERED: LEVAQUIN 500MG / 100ML D5W IV ONE (13:15)
[2017-01-06 13:27] LABS: BASO % 0.1 %; BASO ABS # 0.01 K/uL (0-0.2); COMPLETE YES; EOS % 0.1 %; HEMATOCRIT 46.8 % (42-52); IG% 0.4 %; LYMPH % 6.3 %; LYMPH ABS # 0.58 K/uL (1.2-3.4); MEAN CELL VOLUME 98.3 fL (80-100); MEAN CORPUSCULAR HGB CONC 30.6 g/dl (32-36); MEAN PLATELET VOLUME 10.9 fL (7.4-10.4); MONO % 10.9 %; NEUT % 82.2 %; PLATELET COUNT 170 K/uL (130-400); RED BLOOD COUNT 4.76 M/uL (4.7-6.1); WHITE BLOOD COUNT 9.18 K/uL (4.8-10.8)
[2017-01-06 13:32] LABS: INR 2.6 (0.9-1.1); PARTIAL THROMBOPLASTIN RATIO 1.4; PROTHROMBIN TIME (PATIENT) 28.5 SECONDS (9.0-12.0)
[2017-01-06 14:05] LABS: BUN/CREATININE RATIO 24.6 (10-20); CALCIUM 8.6 mg/dl (8.5-10.1)
[2017-01-06] MEDS ORDERED: AMLO-110 PO (14:22)
[2017-01-06] MEDS ORDERED: CALC-51 PO (14:22)
[2017-01-06] MEDS ORDERED: FURO-85 PO (14:22)
[2017-01-06] MEDS ORDERED: WARF5TAB90 PO (14:22)
[2017-01-06] MEDS ORDERED: LNX125 PO (14:22)
[2017-01-06] MEDS ORDERED: MULT-506 PO (14:22)
[2017-01-06] MEDS ORDERED: METO50TA16 PO (14:22)
[2017-01-06] MEDS ORDERED: CHOL1000 PO (14:22)
[2017-01-06] MEDS ORDERED: ASPI81TA28 PO (14:22)
--- NOTE | 2017-01-06 14:23 | EMERGENCY ROOM VISIT NOTE ---
History Report prepared by [place]: Aguilar Harvey Under the Supervision of: Dr. Charlie Gerber D.O. First contact with patient: 13:10 Chief Complaint: SHORTNESS OF BREATH Stated Complaint: SHORTNESS OF BREATH Nursing Triage Summary: Pt found by home health to have a SAO2 of 87% on his usual 2L NC. Sent here for eval. History of Present Illness The patient is an 86 year old male who presents to the Emergency Room with complaints of worsening shortness of breath that started a couple months ago. Per the patient's family member, the patient's condition has gone downhill over the past week. The patient's shortness of breath has been worsening, and the patient has hardly been eating. He has not been sleeping well, and he sleeps during the day. The patient has also been noted to be weak. The patient's home health nurse found the patient at 87% oxygen saturation on his normal 2 liters this morning. Per the nursing staff here, the patient has gone down to as low as 82% oxygen saturation. The patient's home health nurses suggested that the patient come here because the patient's Lasix may be off. The patient says that he was here 3 weeks ago for pneumonia and was admitted. He has a history of atrial fibrillation. He is on blood thinners. Source of History: patient, family, nursing staff Onset: A couple months ago Position: other (global - shortness of breath) Symptom Intensity: as low as 82% on 2 liters Timing: worsening (in past week) Associated Symptoms: + weakness (minimal strength) Note: Associated symptoms: Not eating much, not sleeping well. Sleeping during day. Review of Systems See HPI for pertinent positives & negatives. A total of 10 systems reviewed and were otherwise negative. Past Medical & Surgical Medical Problems: (1) Atrial fibrillation with RVR (2) COPD (chronic obstructive pulmonary disease) (3) History of bladder cancer (4) History of prostate cancer (5) Hypertension (6) Hypoxia (7) Prostate CA Surgical Problems: (1) H/O cystoscopy (2) H/O prostate biopsy (3) History of cataract surgery Family History FH: aneurysm FH: cancer Social History Smoking Status: Former Smoker Alcohol Use: occasionally Drug Use: none Marital Status: Housing Status: lives with family Occupation Status: retired Current/Historical Medications Scheduled Amlodipine (Norvasc), 5 MG PO QAM Aspirin (Aspirin Ec), 81 MG PO DAILY Calcium Carbonate-Vitamin D (Calcium), 1 TAB PO DAILY Cholecalciferol (Vitamin D3), 1 TAB PO BID Digoxin (Digoxin), 0.125 MG PO DAILY Furosemide (Lasix), 20 MG PO QAM Metoprolol Tartrate (Lopressor) (Lopressor), 50 MG PO BID Multivitamin (Multivitamin), 1 TAB PO DAILY Warfarin Sodium (Coumadin), 5 MG PO DAILY Allergies Coded Allergies: No Known Allergies (Unverified , `, 11/19/16) Physical Exam Vital Signs Date Time Temp Pulse Resp B/P Pulse Ox O2 Delivery O2 Flow Rate FiO2 01/06/17 13:49 102 18 144/71 88 Nasal Cannula 4.0 01/06/17 12:17 93 Nasal Cannula 4.0 01/06/17 12:12 79 01/06/17 12:08 83 Nasal Cannula 2.0 01/06/17 12:08 Nasal Cannula 2.0 01/06/17 12:08 36.9 74 18 157/67 83 Nasal Cannula 2.0 Physical Exam CONSTITUTIONAL/VITAL SIGNS: Reviewed / noted above. GENERAL: Non-toxic in appearance. INTEGUMENTARY: Warm, dry, and [place]. HEAD: Normocephalic. EYES: without scleral icterus or trauma. ENT/OROPHARYNX: clear and moist. LYMPHADENOPATHY/NECK: Is supple without lymphadenopathy or meningismus. RESPIRATORY: Diminished breath sounds bilaterally. CARDIOVASCULAR: Regular rate and rhythm. GI/ABDOMEN: Soft and nontender. No organomegaly or pulsatile mass. No rebound or guarding. Normal bowel sounds. EXTREMITIES: Warm and well perfused. BACK: No CVA tenderness. NEUROLOGICAL: Intact without focal deficits. PSYCHIATRIC: normal affect. MUSCULOSKELETAL: Normally developed with good muscle tone. Medical Decision & Procedures ER Provider Diagnostic Interpretation: X ray results and stated below per my interpretation and radiology interpretation. CHEST ONE VIEW PORTABLE CLINICAL HISTORY: Hypoxia, shortness of breath. COMPARISON STUDY: 11/23/2016 FINDINGS: The heart is borderline enlarged. There is aortic tortuosity. There are progressive bibasal airspace opacities. There are small pleural effusions. Underlying emphysema is suspected.[ There is soft tissue widening of the right para mediastinal region suspicious for adenopathy. IMPRESSION: 1. Mediastinal widening suspicious for adenopathy 2. Progressive bibasal airspace opacities suspicious for pneumonia 3. Small bilateral pleural effusions Electronically signed by: Rashad Cooper M.D. 01/06/2017 12:55 PM Dictated Date/Time: 01/06/2017 12:53 PM Laboratory Results 01/06/17 12:55 Red Blood Count 4.76, Mean Corpuscular Volume 98.3, Mean Corpuscular Hemoglobin 30.0, Mean Corpuscular Hemoglobin Concent 30.6, Mean Platelet Volume 10.9, Neutrophils (%) (Auto) 82.2, Lymphocytes (%) (Auto) 6.3, Monocytes (%) (Auto) 10.9, Eosinophils (%) (Auto) 0.1, Basophils (%) (Auto) 0.1, Neutrophils # (Auto ) 7.54, Lymphocytes # (Auto) 0.58, Monocytes # (Auto) 1.00, Eosinophils # (Auto ) 0.01, Basophils # (Auto) 0.01 01/06/17 12:55 Test 01/06/17 12:55 01/06/17 12:59 White Blood Count 9.18 K/uL (4.8-10.8) Red Blood Count 4.76 M/uL (4.7-6.1) Hemoglobin 14.3 g/dL (14.0-18.0) Hematocrit 46.8 % (42-52) Mean Corpuscular Volume 98.3 fL (80-100) Mean Corpuscular Hemoglobin 30.0 pg (25-34) Mean Corpuscular Hemoglobin Concent 30.6 g/dl (32-36) Platelet Count 170 K/uL (130-400) Mean Platelet Volume 10.9 fL (7.4-10.4) Neutrophils (%) (Auto) 82.2 % Lymphocytes (%) (Auto) 6.3 % Monocytes (%) (Auto) 10.9 % Eosinophils (%) (Auto) 0.1 % Basophils (%) (Auto) 0.1 % Neutrophils # (Auto) 7.54 K/uL (1.4-6.5) Lymphocytes # (Auto) 0.58 K/uL (1.2-3.4) Monocytes # (Auto) 1.00 K/uL (0.11-0.59) Eosinophils # (Auto) 0.01 K/uL (0-0.5) Basophils # (Auto) 0.01 K/uL (0-0.2) RDW Standard Deviation 49.8 fL (36.4-46.3) RDW Coefficient of Variation 13.8 % (11.5-14.5) Immature Granulocyte % (Auto) 0.4 % Immature Granulocyte # (Auto) 0.04 K/uL (0.00-0.02) Prothrombin Time 28.5 SECONDS (9.0-12.0) Prothromb Time International Ratio 2.6 (0.9-1.1) Activated Partial Thromboplast Time 36.9 SECONDS (21.0-31.0) Partial Thromboplastin Ratio 1.4 Anion Gap 2.0 mmol/L (3-11) Est Creatinine Clear Calc Drug Dose 56.1 ml/min Estimated GFR () 77.5 Estimated GFR (Non- 66.9 BUN/Creatinine Ratio 24.6 (10-20) Calcium Level 8.6 mg/dl (8.5-10.1) Total Bilirubin 0.7 mg/dl (0.2-1) Aspartate Amino Transf (AST/SGOT) 34 U/L (15-37) Alanine Aminotransferase (ALT/SGPT) 29 U/L (12-78) Alkaline Phosphatase 45 U/L (45-117) Total Protein 6.5 gm/dl (6.4-8.2) Albumin 3.3 gm/dl (3.4-5.0) Globulin 3.2 gm/dl (2.5-4.0) Albumin/Globulin Ratio 1.0 (0.9-2) Bedside Troponin I 0.010 ng/ml (0-0.045) Laboratory results as stated above per my review. Medications Administered Medications (Trade) Dose Ordered Sig/Reginaldo Route Start Time Stop Time Status Last Admin Dose Admin Albuterol/ Ipratropium (Duoneb) 3 ml STK-MED ONCE .ROUTE 01/06/17 12:19 01/06/17 12:20 DC 01/06/17 12:22 3 ML Albuterol/ Ipratropium (Duoneb) 3 ml NOW STAT INH 01/06/17 13:14 01/06/17 13:16 DC 01/06/17 14:29 3 ML Piperacillin Sod/ Tazobactam Sod (Zosyn Iv) 4.5 gm NOW STAT IV 01/06/17 13:15 01/06/17 13:18 DC 01/06/17 14:29 4.5 GM ECG Indication: SOB/dyspnea Rate (beats per minute): 80 Rhythm: atrial fibrillation Findings: no ectopy, other (diffuse ST inversions) Change: no significant change (compared to 11/21/16) ED Course 1311: Previous medical records were reviewed. The patient was evaluated in room C4. A complete history and physical examination was performed. 1314: Ordered Duoneb 3 ml INH. 1315: Ordered Levaquin / D5W 500 mg IV, Zosyn IV 4.5 gm IV. 1414: I discussed the patient with Dr. Tamir Best technical services representative - she will evaluate the patient for further treatment. 1420: I reevaluated the patient and he is resting comfortably. The patient verbally expressed understanding and agreement of the treatment plan. The patient will be evaluated for further treatment. Medical Decision the differential was considered includes acute myocardial infarction, acute coronary syndrome, myocarditis, pericarditis, pericardial effusions /tamponade3 , esophageal perforation, pulmonary embolism, pneumonia, pneumothorax, cardiomyopathy, congestive heart, anemia , COPD/asthma exacerbation. This is an 86-year-old male who presents to the ED with a chief complaint of shortness of breath. The patient has had increasing shortness of breath over the past 3-7 days. He is not on home oxygen. His oxygen saturations were 83% on 2 L. He had decreased appetite. He has had generalized weakness. He has chronic A. fib. He is on Coumadin. His INR is 2.6 today. A chest x-ray reveals bilateral basilar pneumonia. The patient's cardiac enzymes are normal. CBC was normal. The patient was started on Levaquin IV as well as Zosyn IV. He was given a DuoNeb treatment. He will be seen by the hospitalist for inpatient care and evaluation. Consults Time Called: [phone] Consulting Physician: Dr. Tamir Best technical services representative Returned Call: [phone] I discussed the patient with Dr. Tamir Best technical services representative - she will evaluate the patient for further treatment. Impression Primary Impression: PNA (pneumonia) Additional Impression: Hypoxia Scribe Attestation The scribe's documentation has been prepared under my direction and personally reviewed by me in its entirety. I confirm that the note above accurately reflects all work, treatment, procedures, and medical decision making performed by me. Departure Information Dispostion Being Evaluated By Hospitalist Referrals Cj Galdamez M.D. (PCP) Patient Instructions My [facility] Problem Qualifiers
[2017-01-06] MEDS ORDERED: ACETAMINOPHEN 325 MG TAB PO PRN (15:30)
[2017-01-06] MEDS ORDERED: NITROGLYCERIN 0.4 MG SL PER TAB CHARGE SL PRN (15:30)
[2017-01-06] MEDS ORDERED: ALUMINUM/MAGNESIUM/SIMETH (MAALOX MAX) 30 ML UDC PO PRN (15:30)
[2017-01-06] MEDS ORDERED: ONDANSETRON INJ 2 MG/ML 2 ML VIAL IV PRN (15:30)
[2017-01-06] MEDS ORDERED: MAGNESIUM HYDROXIDE SUSP 30 ML UDC PO PRN (15:30)
[2017-01-06] MEDS ORDERED: POLYETHYLENE (MIRALAX) 17 GM PACK PO PRN (15:30)
[2017-01-06] MEDS ORDERED: ZOLPIDEM TARTRATE 5 MG TAB PO PRN (15:30)
[2017-01-06] MEDS ORDERED: AMLODIPINE BESYLATE 5 MG TAB PO ONE (15:39)
[2017-01-06] MEDS ORDERED: METOPROLOL TARTRATE 50 MG TAB PO ONE (15:39)
[2017-01-06] MEDS ORDERED: ASPIRIN 81 MG ECTAB PO ONE (15:39)
[2017-01-06] MEDS ORDERED: PRVHFAIN INH (15:43)
[2017-01-06] MEDS ORDERED: ALBUT/IPRATROP 3MG/0.5MG NEB 3 ML VIAL INH PRN (15:45)
[2017-01-06] MEDS ORDERED: PIPERACILL/TAZOBAC CONSULT ACTIVE PRN (15:45)
[2017-01-06 18:12] VITALS: BP 146/88; PULSE 106; TEMP 36.4; O2SAT 89
[2017-01-06 18:23] VITALS: BP 146/88; PULSE 106; TEMP 36.4; O2SAT 90; Ht 182.9 cm; Wt 79.6 kg
[2017-01-06] MEDS: ALBUT/IPRATROP 3MG/0.5MG NEB 3 ML VIAL INH SCH (19:16)
[2017-01-06 19:17] VITALS: PULSE 89; O2SAT 89
[2017-01-06 20:00] VITALS: O2SAT 90
[2017-01-06] MEDS: PIPERACILL/TAZOBAC IV 3.375 GM in DEXTROSE 5% 100ML 100 ML IV SCH (20:01)
[2017-01-06] MEDS ORDERED: WARFARIN SOD 5 MG TAB PO SCH (21:00)
[2017-01-06 21:07] VITALS: O2SAT 90
--- NOTE | 2017-01-06 21:33 | History and Physical ---
History & Physical Date & Time of Service: January 06, 2017 at 15:46 Chief Complaint: Shortness Of Breath Primary Care Physician: Cj Galdamez M.D. History of Present Illness Source: patient, family (daughter at bedside), clinic records, hospital records This is an 86 year old male with PMH of atrial fibrillation, chronic respiratory failure on home O2, hx possible aspiration pneumonia, chronic combined systolic, diastolic, valvular CHF, pulmonary hypertension, valvular disease, hypertension, CKD stage III, bladder CA, and other problems listed below who presents to the ED for SOB. Patient was recently admitted to [facility] from November 19- for AF with RVR, acute hypoxic respiratory failure newly started on oxygen at that time, pneumonia possibly aspiration treated with Unasyn/doxycycline then clindamycin, CHF exacerbation. Patient was seen by speech, had video swallow test which showed no aspiration, moderately disordered hypopharyngeal, oral motility, trace penetration. Seen by GI, offered dilation/ EGD but declined procedure. He was noted to have bulky mediastinal lymphadenopathy on CT chest. CT surgery consulted for possible bx, preop cardiology eval done, surgery cancelled due to high risk. US guided FNA was considered but patient declined. After recent hospitalization breathing had improved, but over past 1 week has worsened dyspnea on exertion, occurring with ambulating a few steps. No dyspnea at rest. Has been sleeping in recliner past few nights as "couldn't get in comfortable position" in bed. Today home health nurse noted pulse ox in 80s on his chronic 2 liters NC. Patient reports associated fatigue, generalized weakness, poor appetite. Has chronic cough with white sputum, no change from baseline per patient/ daughter. Denies aspiration episode. Has chronic rhinorrhea attributed to allergies which is unchanged. He states nose and throat are irritated from nasal O2. Has walker but does not use it. No falls. Feels cold chronically. Bilateral LE edema increased for past few days per daughter. Does not weigh himself. Denies fever, HOUGH, dizziness, chest pain, palpitations, abdominal pain, N/V/D, dysuria, frequency, calf pain, abnormal bleeding. No sick contact. Took Lasix this am but missed other AM meds. Past Medical/Surgical History Medical Problems: (1) Aortic stenosis Permanent Comment: severe Status: Chronic (2) Atrial fibrillation Status: Chronic (3) Chronic combined systolic and diastolic CHF (congestive heart failure) Status: Chronic (4) CKD (chronic kidney disease), stage III Status: Chronic (5) COPD (chronic obstructive pulmonary disease) Status: Chronic (6) Dyslipidemia Status: Chronic (7) History of bladder cancer Status: Chronic (8) History of prostate cancer Status: Chronic (9) Hypertension Status: Chronic (10) Mediastinal adenopathy Status: Chronic (11) Mitral regurgitation Status: Chronic (12) Prostate CA Status: Chronic (13) Pulmonary hypertension Status: Chronic (14) Tricuspid regurgitation Status: Chronic Surgical Problems: (1) H/O cystoscopy Status: Chronic (2) H/O prostate biopsy Status: Chronic (3) History of cataract surgery Status: Chronic Family History FH: aneurysm FH: cancer Social History Smoking Status: Former Smoker (quit 2007. 64 pack year history.) Alcohol Use: drinks 2 beers or 1 whisky mixed drink 2-3 times per week Marital Status: Housing status: lives alone (independent for ADLs. daughter lives close by and organizes medications. ) Occupational Status: retired Allergies Coded Allergies: No Known Allergies (Unverified , `, 11/19/16) Home Medications Scheduled Amlodipine (Norvasc), 5 MG PO QAM Aspirin (Aspirin Ec), 81 MG PO DAILY Calcium Carbonate-Vitamin D (Calcium), 2 TAB PO DAILY Cholecalciferol (Vitamin D3), 1,000 UNITS PO DAILY Digoxin (Digoxin), 0.125 MG PO DAILY Furosemide (Lasix), 20 MG PO QAM Metoprolol Tartrate (Lopressor) (Lopressor), 50 MG PO BID Multivitamin (Multivitamin), 1 TAB PO DAILY Warfarin Sodium (Coumadin), 5 MG PO QPM Scheduled PRN Albuterol (Ventolin Hfa), 2 PUFFS INH TID PRN for SOB/Wheezing Review of Systems Ten systems reviewed and negative except as noted in HPI. Physical Exam Vital Signs Date Time Temp Pulse Resp B/P Pulse Ox O2 Delivery O2 Flow Rate FiO2 01/06/17 13:49 102 18 144/71 88 Nasal Cannula 4.0 01/06/17 12:17 93 Nasal Cannula 4.0 01/06/17 12:12 79 01/06/17 12:08 83 Nasal Cannula 2.0 01/06/17 12:08 Nasal Cannula 2.0 01/06/17 12:08 36.9 74 18 157/67 83 Nasal Cannula 2.0 General Appearance: WD/WN, no apparent distress, + pertinent finding (pleasant alert elderly male, not in distress, daughter at bedside) Head: normocephalic, atraumatic Eyes: normal inspection, PERRL, EOMI ENT: pharynx normal, + pertinent finding (hard of hearing, has bilateral hearing aids) Neck: supple, no JVD, trachea midline Respiratory/Chest: no respiratory distress, no accessory muscle use, + pertinent finding (crackles right base. decreased breath sounds left base. no wheezing. on 4 liters NC saturating approx 90% when good waveform seen. ) Cardiovascular: no JVD, normal peripheral pulses, + irregularly irregular ( rate 90s) Abdomen/GI: normal bowel sounds, non tender, soft Extremities/Musculoskelatal: no calf tenderness, normal capillary refill, + pertinent finding (pedal/ pretibial edema bilaterally 1+) Neurologic/Psych: alert, normal mood/affect, oriented x 3, + pertinent finding (speech clear, no facial droop. no focal motor deficit.) Skin: normal color, warm/dry Diagnostics Laboratory Results Results Past 24 Hours Test 01/06/17 12:55 01/06/17 12:59 Range/Units White Blood Count 9.18 4.8-10.8 K/uL Red Blood Count 4.76 4.7-6.1 M/uL Hemoglobin 14.3 14.0-18.0 g/dL Hematocrit 46.8 42-52 % Mean Corpuscular Volume 98.3 80-100 fL Mean Corpuscular Hemoglobin 30.0 25-34 pg Mean Corpuscular Hemoglobin Concent 30.6 32-36 g/dl Platelet Count 170 130-400 K/uL Mean Platelet Volume 10.9 7.4-10.4 fL Neutrophils (%) (Auto) 82.2 % Lymphocytes (%) (Auto) 6.3 % Monocytes (%) (Auto) 10.9 % Eosinophils (%) (Auto) 0.1 % Basophils (%) (Auto) 0.1 % Neutrophils # (Auto) 7.54 1.4-6.5 K/uL Lymphocytes # (Auto) 0.58 1.2-3.4 K/uL Monocytes # (Auto) 1.00 0.11-0.59 K/uL Eosinophils # (Auto) 0.01 0-0.5 K/uL Basophils # (Auto) 0.01 0-0.2 K/uL RDW Standard Deviation 49.8 36.4-46.3 fL RDW Coefficient of Variation 13.8 11.5-14.5 % Immature Granulocyte % (Auto) 0.4 % Immature Granulocyte # (Auto) 0.04 0.00-0.02 K/uL Prothrombin Time 28.5 9.0-12.0 SECONDS Prothromb Time International Ratio 2.6 0.9-1.1 Activated Partial Thromboplast Time 36.9 21.0-31.0 SECONDS Partial Thromboplastin Ratio 1.4 Sodium Level 141 136-145 mmol/L Potassium Level 4.0 3.5-5.1 mmol/L Chloride Level 97 98-107 mmol/L Carbon Dioxide Level 42 21-32 mmol/L Anion Gap 2.0 3-11 mmol/L Blood Urea Nitrogen 25 7-18 mg/dl Creatinine 1.00 0.60-1.40 mg/dl Est Creatinine Clear Calc Drug Dose 56.1 ml/min Estimated GFR () 77.5 Estimated GFR (Non- 66.9 BUN/Creatinine Ratio 24.6 10-20 Random Glucose 130 70-99 mg/dl Calcium Level 8.6 8.5-10.1 mg/dl Total Bilirubin 0.7 0.2-1 mg/dl Aspartate Amino Transf (AST/SGOT) 34 15-37 U/L Alanine Aminotransferase (ALT/SGPT) 29 12-78 U/L Alkaline Phosphatase 45 45-117 U/L Total Protein 6.5 6.4-8.2 gm/dl Albumin 3.3 3.4-5.0 gm/dl Globulin 3.2 2.5-4.0 gm/dl Albumin/Globulin Ratio 1.0 0.9-2 Bedside Troponin I 0.010 0-0.045 ng/ml Microbiology Results 01/06/17 Blood Culture, Received Pending 01/06/17 Blood Culture, Received Pending Diagnostic Radiology CHEST ONE VIEW PORTABLE CLINICAL HISTORY: Hypoxia, shortness of breath. COMPARISON STUDY: 11/23/2016 FINDINGS: The heart is borderline enlarged. There is aortic tortuosity. There are progressive bibasal airspace opacities. There are small pleural effusions. Underlying emphysema is suspected.[ There is soft tissue widening of the right para mediastinal region suspicious for adenopathy. IMPRESSION: 1. Mediastinal widening suspicious for adenopathy 2. Progressive bibasal airspace opacities suspicious for pneumonia 3. Small bilateral pleural effusions EKG Atrial fibrillation, ST & T wave abnormality, consider inferior ischemia, ST & T wave abnormality, consider anterolateral ischemia, when compared to prior EKG , T wave inversion now evident in Anterolateral leads, QT has shortened, as per cardiology read Impression Assessment and Plan ACUTE ON CHRONIC HYPOXIC RESPIRATORY FAILURE due to BILATERAL PNEUMONIA ? ASPIRATION; UNDERLYING COPD Presents with increased exertional dyspnea, cough with white sputum, hypoxia to 80's on his chronic 2 liters NC CXR shows mediastinal widening suspicious for adenopathy, progressive bibasilar airspace opacities suspicious for pneumonia, small bilateral pleural effusions Recent possible aspiration pneumonia 11/2016 treated with Unasyn/ doxycycline then clindamycin; denies recent aspiration episode On recent admission had speech eval, video swallow- No aspiration, moderately disordered hypopharyngeal, oral motility, trace penetration, recommended GI evaluation, was placed on slippery diet with aspiration/GERD precautions; seen by GI, declined dilation/ EGD Given dose of Levaquin and Zosyn in ER Continue with empiric Zosyn Check blood cultures, sputum culture Speech consult Monitor in telemetry Supplemental O2 per protocol Repeat CXR in am COPD Not in acute exacerbation Nebs ordered ATRIAL FIBRILLATION Rate in intermittently up to 100s in ER -> improved to 80s Continue metoprolol and digoxin INR is 2.6; goal 2-2.5 per records on prior hospitalization Continue Coumadin Monitor INR HYPERTENSION BP is stable Continue amlodipine, metoprolol, furosemide CHRONIC SYSTOLIC/ DIASTOLIC/ VALVULAR CHF Echo 11/21/16- moderate concentric LVH, EF 65-70%, mod-severe , mild MR, mild TR, pulmonary hypertension Appears euvolemic Continue Lasix CKD STAGE III Creat is 1.0; stable from baseline Monitor renal function Avoid nephrotoxins MEDIASTINAL LYMPHADENOPATHY Noted on CT chest 11/23/16 CT surgery consulted for possible bx, preop cardiology eval done, surgery cancelled due to high risk; US guided FNA was considered but patient declined RECENT HEMORRHOIDAL BLEEDING Occurred in setting of bridging with IV heparin/ Coumadin for afib Now resolved HX BLADDER CA Follows with Dr. Cabrera DVT PROPHYLAXIS Coumadin CODE STATUS Level 3 per preference on recent admission November 2016 DISPOSITION Lives alone; daughter helps with meds Follows with Dr. Galdamez for primary care Patient seen in collaboration with Dr. Garnett. Please see her addendum. ATTENDING ADDENDUM ; records reviewed pt seen and examined care co ordinated with Lynda Marquez PA-C please see her documentation for detail pt History Briefly 86 yo male with hx of dysphagia /moderate esophageal dysmotility in recent VFSS presented with Hypoxia , cough Cxray shows bilateral pneumonia Physical exam : as outline by Lynda Marquez PA-C A/P: Bilateral pneumonia /concern for aspiration cont empiric Abx with Zosyn blood and sputum culture ordered aspiration precaution speech pathology eval requested Please refer to Lynda Marquez PA-C documentation for discussion of other issues Ankita Garnett MD Level of Care Telemetry Resuscitation Status FULL NO MECH VENTILATION VTE Prophylaxis VTE Risk Assessment Done? Y/N: Yes Risk Level: Moderate Given or contraindicated: Warfarin (Coumadin) Additional Copies To Cj Galdamez M.D.
[2017-01-06 23:33] VITALS: BP 140/70; PULSE 85; TEMP 36.6; O2SAT 88
[2017-01-07] VITALS (15 sets, daily range): BP systolic 124–150; BP diastolic 59–78; PULSE 70–89; TEMP 36.2–36.6; O2SAT 88–92
[2017-01-07] MEDS: PIPERACILL/TAZOBAC IV 3.375 GM in DEXTROSE 5% 100ML 100 ML IV SCH ×3 (04:09→20:57)
[2017-01-07 05:53] LABS: HEMATOCRIT 47.5 % (42-52); MEAN CELL VOLUME 98.3 fL (80-100); MEAN CORPUSCULAR HEMOGLOBIN 28.8 pg (25-34); MEAN CORPUSCULAR HGB CONC 29.3 g/dl (32-36); MEAN PLATELET VOLUME 10.3 fL (7.4-10.4); PLATELET COUNT 160 K/uL (130-400); RED BLOOD COUNT 4.83 M/uL (4.7-6.1); WHITE BLOOD COUNT 8.86 K/uL (4.8-10.8)
[2017-01-07 06:05] LABS: INR 3.4 (0.9-1.1); PROTHROMBIN TIME (PATIENT) 37.7 SECONDS (9.0-12.0)
[2017-01-07 06:28] LABS: BUN/CREATININE RATIO 21.7 (10-20); MAGNESIUM 2.2 mg/dl (1.8-2.4); POTASSIUM 4.1 mmol/L (3.5-5.1)
[2017-01-07 06:29] LABS: CALCIUM 8.8 mg/dl (8.5-10.1)
[2017-01-07] MEDS: FUROSEMIDE 20 MG TAB PO SCH (07:52)
[2017-01-07] MEDS: MULTIVITAMIN TAB PO SCH (07:52)
[2017-01-07] MEDS: CHOLECALCIFEROL 1000 INTER.UNIT TAB PO SCH (07:52)
[2017-01-07] MEDS: DIGOXIN 0.125 MG TAB PO SCH (07:53)
[2017-01-07] MEDS: CALCIUM 600MG + VIT D 400 IU TAB PO SCH (07:53)
[2017-01-07] MEDS: ALBUT/IPRATROP 3MG/0.5MG NEB 3 ML VIAL INH SCH ×5 (07:56→19:08)
--- NOTE | 2017-01-07 08:05 | DIAGNOSTIC IMAGING REPORT ---
CHEST ONE VIEW PORTABLE HISTORY: PNEUMONIA COMPARISON: Chest 01/06/2017. FINDINGS: No change in the bilateral airspace opacities and small bilateral pleural effusions. The heart remains enlarged. Mediastinal widening consistent with the lymphadenopathy seen on the prior chest CT. IMPRESSION: 1. Bilateral airspace opacities and small bilateral pleural effusions, unchanged. This could represent pneumonia or pulmonary edema. 2. Mediastinal lymphadenopathy persists. Electronically signed by: Brenton Aguila M.D. 01/07/2017 8:04 AM Dictated Date/Time: 01/07/2017 8:02 AM
[2017-01-07] MEDS: ASPIRIN 81 MG ECTAB PO SCH (08:32)
[2017-01-07] MEDS: METOPROLOL TARTRATE 50 MG TAB PO SCH ×2 (08:32→20:58)
[2017-01-07] MEDS: AMLODIPINE BESYLATE 5 MG TAB PO SCH (08:32)
--- NOTE | 2017-01-07 22:24 | Progress Note ---
Internal Med Progress Note Date of Service: January 07, 2017. Provider Documentation: SUBJECTIVE: feels much better today SOB has improved, 02 reduced to 2 L via nasal canula ( baseline ) continues to have cough no fever or chills OBJECTIVE: Vital Signs-as noted below Exam: General-elderly male, no sign of distress Eyes-sclera non icteric ENT-NAd Neck-no JVD Lungs-coarse rales at base Heart-irregular Abdomen-soft, non tender Extremities-no lower ext edema Neuro-no focal deficit Lab data as noted below. ASSESSMENT & PLAN: ACUTE ON CHRONIC HYPOXIC RESPIRATORY FAILURE due to BILATERAL PNEUMONIA ? ASPIRATION; UNDERLYING COPD Presents with increased exertional dyspnea, cough with white sputum, hypoxia to 80's on his chronic 2 liters NC-required 4 L 02 respiratory status improved to baseline no complain of SOB 02 reduced to 2 L via nasal canula ( baseline ) CXR shows mediastinal widening suspicious for adenopathy, progressive bibasilar airspace opacities suspicious for pneumonia, small bilateral pleural effusions Recent possible aspiration pneumonia 11/2016 treated with Unasyn/ doxycycline then clindamycin; denies recent aspiration episode recent speech eval, video swallow- No aspiration, moderately disordered hypopharyngeal, oral motility, trace penetration, recommended GI evaluation, was placed on slippery diet with aspiration/GERD precautions; seen by GI, declined dilation/ EGD pt is continued with empiric ABx with Zosyn follow blood cultures, sputum culture Speech consult requested COPD elevated C02 possible due to chronic retention with associated MELISSA CPAP ordered for night time cont PRN Neb tx ATRIAL FIBRILLATION Continue metoprolol and digoxin INR is 2.6; goal 2-2.5 per records on prior hospitalization Continue Coumadin Monitor INR HYPERTENSION BP is stable Continue amlodipine, metoprolol, furosemide CHRONIC SYSTOLIC/ DIASTOLIC/ VALVULAR CHF Echo 11/21/16- moderate concentric LVH, EF 65-70%, mod-severe , mild MR, mild TR, pulmonary hypertension Appears euvolemic Continue Lasix CKD STAGE III Creat is 1.0; stable from baseline Monitor renal function Avoid nephrotoxins MEDIASTINAL LYMPHADENOPATHY Noted on CT chest 11/23/[address] surgery evaluation done in last admission found to be high risk for bronchoscopic biopsy pt declined USG guided FNA HX BLADDER CA Follows with Dr. Cabrera DVT PROPHYLAXIS Coumadin CODE STATUS Level 3 per preference on recent admission November 2016 DISPOSITION Lives alone; daughter helps with meds PT/OT eval requested will benefit from home health visiting nurse Follows with Dr. Galdamez for primary care Daughter updated over phone Vital Signs: Date Time Temp Pulse Resp B/P Pulse Ox O2 Delivery O2 Flow Rate FiO2 01/07/17 20:00 92 Nasal Cannula 3.5 01/07/17 19:58 36.6 78 18 132/59 92 Nasal Cannula 4.0 01/07/17 19:08 81 16 91 Nasal Cannula 3.0 01/07/17 16:00 90 Nasal Cannula 3.5 01/07/17 15:11 72 12 91 Nasal Cannula 3.0 01/07/17 15:00 36.4 73 18 124/67 90 Nasal Cannula 4.0 01/07/17 14:17 70 12 90 Nasal Cannula 3.0 01/07/17 12:00 Nasal Cannula 4.5 01/07/17 11:34 36.5 76 20 125/66 90 Nasal Cannula 3.0 01/07/17 11:22 78 12 91 Nasal Cannula 3.0 01/07/17 08:00 Nasal Cannula 4.5 01/07/17 07:53 75 01/07/17 07:24 74 12 90 Nasal Cannula 4.5 01/07/17 07:17 36.4 83 20 144/65 90 4.0 01/07/17 04:11 36.5 85 20 134/65 90 Nasal Cannula 4.5 01/07/17 04:00 Nasal Cannula 4.5 01/07/17 00:00 88 Nasal Cannula 4.5 01/06/17 23:33 36.6 85 20 140/70 88 Nasal Cannula 4.5 Lab Results: Results Past 24 Hours Test 01/07/17 05:43 Range/Units White Blood Count 8.86 4.8-10.8 K/uL Red Blood Count 4.83 4.7-6.1 M/uL Hemoglobin 13.9 14.0-18.0 g/dL Hematocrit 47.5 42-52 % Mean Corpuscular Volume 98.3 80-100 fL Mean Corpuscular Hemoglobin 28.8 25-34 pg Mean Corpuscular Hemoglobin Concent 29.3 32-36 g/dl RDW Standard Deviation 49.2 36.4-46.3 fL RDW Coefficient of Variation 13.8 11.5-14.5 % Platelet Count 160 130-400 K/uL Mean Platelet Volume 10.3 7.4-10.4 fL Prothrombin Time 37.7 9.0-12.0 SECONDS Prothromb Time International Ratio 3.4 0.9-1.1 Sodium Level 142 136-145 mmol/L Potassium Level 4.1 3.5-5.1 mmol/L Chloride Level 95 98-107 mmol/L Carbon Dioxide Level 43 21-32 mmol/L Anion Gap 4.0 3-11 mmol/L Blood Urea Nitrogen 22 7-18 mg/dl Creatinine 1.00 0.60-1.40 mg/dl Est Creatinine Clear Calc Drug Dose 56.1 ml/min Estimated GFR () 77.5 Estimated GFR (Non- 66.9 BUN/Creatinine Ratio 21.7 10-20 Random Glucose 116 70-99 mg/dl Calcium Level 8.8 8.5-10.1 mg/dl Magnesium Level 2.2 1.8-2.4 mg/dl Microbiology Results 01/07/17 Gram Stain, Received Pending 01/07/17 Sputum Culture, Received Pending
[2017-01-08] VITALS (18 sets, daily range): BP systolic 124–149; BP diastolic 61–78; PULSE 71–98; TEMP 36.3–36.9; O2SAT 50–98
[2017-01-08] MEDS: PIPERACILL/TAZOBAC IV 3.375 GM in DEXTROSE 5% 100ML 100 ML IV SCH ×3 (04:08→19:53)
[2017-01-08 06:20] LABS: HEMATOCRIT 48.3 % (42-52); MEAN CORPUSCULAR HEMOGLOBIN 29.4 pg (25-34); MEAN CORPUSCULAR HGB CONC 29.4 g/dl (32-36); MEAN PLATELET VOLUME 10.7 fL (7.4-10.4); PLATELET COUNT 179 K/uL (130-400); RED BLOOD COUNT 4.83 M/uL (4.7-6.1); WHITE BLOOD COUNT 9.36 K/uL (4.8-10.8)
[2017-01-08 06:30] LABS: INR 3.1 (0.9-1.1); PROTHROMBIN TIME (PATIENT) 34.8 SECONDS (9.0-12.0)
[2017-01-08] MEDS: ALBUT/IPRATROP 3MG/0.5MG NEB 3 ML VIAL INH SCH ×4 (07:01→19:16)
[2017-01-08 07:13] LABS: BUN/CREATININE RATIO 18.8 (10-20); CALCIUM 8.5 mg/dl (8.5-10.1); CREATININE 1.1 mg/dl (0.60-1.40); MAGNESIUM 2.5 mg/dl (1.8-2.4); POTASSIUM 3.9 mmol/L (3.5-5.1)
[2017-01-08] MEDS: CALCIUM 600MG + VIT D 400 IU TAB PO SCH (07:39)
[2017-01-08] MEDS: METOPROLOL TARTRATE 50 MG TAB PO SCH ×2 (07:39→21:13)
[2017-01-08] MEDS: ASPIRIN 81 MG ECTAB PO SCH (07:40)
[2017-01-08] MEDS: FUROSEMIDE 20 MG TAB PO SCH (07:40)
[2017-01-08] MEDS: DIGOXIN 0.125 MG TAB PO SCH (07:40)
[2017-01-08] MEDS: CHOLECALCIFEROL 1000 INTER.UNIT TAB PO SCH (07:40)
[2017-01-08] MEDS: MULTIVITAMIN TAB PO SCH (07:40)
[2017-01-08] MEDS: AMLODIPINE BESYLATE 5 MG TAB PO SCH (07:40)
--- NOTE | 2017-01-08 17:51 | Progress Note ---
Internal Med Progress Note Date of Service: Jan 08, 2017. Provider Documentation: SUBJECTIVE: still very SOB ,tachypneic, hypoxic on 5L 02 complains orthopnea continues to have cough with whitish sputum no fever or chills OBJECTIVE: Vital Signs-as noted below Exam: General-elderly male, no sign of distress Eyes-sclera non icteric ENT-NAd Neck-no JVD Lungs-coarse rales at base Heart-irregular Abdomen-soft, non tender Extremities-no lower ext edema Neuro-no focal deficit Lab data as noted below. ASSESSMENT & PLAN: ACUTE ON CHRONIC HYPOXIC RESPIRATORY FAILURE due to BILATERAL PNEUMONIA ASPIRATION; UNDERLYING COPD Presents with increased exertional dyspnea, cough with white sputum, hypoxia to 80's on his chronic 2 liters NC-required 4 L 02 CXR shows mediastinal widening suspicious for adenopathy, progressive bibasilar airspace opacities suspicious for pneumonia, small bilateral pleural effusions Recent possible aspiration pneumonia 11/2016 treated with Unasyn/ doxycycline then clindamycin; denies recent aspiration episode recent speech eval, video swallow- No aspiration, moderately disordered hypopharyngeal, oral motility, trace penetration, recommended GI evaluation, was placed on slippery diet with aspiration/GERD precautions; seen by GI, declined dilation/ EGD pt is continued with empiric ABx with Zosyn Pulmonology eval requested follow blood cultures, sputum culture Speech consult requested ACUTE DECOMPENSATION OF CHRONIC SYSTOLIC/ DIASTOLIC/ VALVULAR CHF Echo 11/21/16- moderate concentric LVH, EF 65-70%, mod-severe , mild MR, mild TR, pulmonary hypertension continued hypoxia , with bibasilar rales cxray shows pulmonary congestion /bilateral on Lasix 20 mg PO daily ordered for 20 mg IV Lasix X1 now repeat Cxray in Am cont to monitor vol status COPD elevated C02 possible due to chronic retention with associated MELISSA re CPAP ordered for night time cont PRN Neb tx ATRIAL FIBRILLATION Continue metoprolol and digoxin INR elevated Coumadin on hold Monitor INR HYPERTENSION BP is stable Continue amlodipine, metoprolol, furosemide CKD STAGE III Creat is 1.0; stable from baseline Monitor renal function Avoid nephrotoxins MEDIASTINAL LYMPHADENOPATHY Noted on CT chest 11/23/[address] surgery evaluation done in last admission found to be high risk for bronchoscopic biopsy pt declined USG guided FNA HX BLADDER CA Follows with Dr. Cabrera DVT PROPHYLAXIS Coumadin CODE STATUS Level 3 per preference on recent admission November 2016 DISPOSITION Lives alone; daughter helps with meds PT/OT eval requested will benefit from home health visiting nurse Follows with Dr. Galdamez for primary care Daughter updated over phone Vital Signs: Date Time Temp Pulse Resp B/P (MAP) Pulse Ox O2 Delivery O2 Flow Rate FiO2 01/08/17 15:39 82 89 01/08/17 15:11 36.4 92 20 135/68 (90) 92 Nasal Cannula 5.0 01/08/17 14:34 74 20 78 Room Air 01/08/17 12:17 36.3 73 20 143/67 (92) 86 Nasal Cannula 5.0 01/08/17 12:00 97 Nasal Cannula 5.0 01/08/17 11:13 74 20 95 Nasal Cannula 5.0 01/08/17 08:00 97 Nasal Cannula 5.0 01/08/17 07:40 90 01/08/17 07:15 36.5 91 18 138/67 (90) 93 Nasal Cannula 5.0 01/08/17 07:01 98 20 78 Nasal Cannula 3.0 01/08/17 05:31 36.9 81 20 149/64 (92) 91 Nasal Cannula 5.0 01/08/17 04:00 Nasal Cannula 5.0 01/08/17 00:00 Nasal Cannula 5.0 01/07/17 23:55 36.2 75 18 150/78 (102) 89 BiPAP 01/07/17 22:20 89 90 5.0 01/07/17 20:00 92 Nasal Cannula 3.5 01/07/17 19:58 36.6 78 18 132/59 (83) 92 Nasal Cannula 4.0 01/07/17 19:08 81 16 91 Nasal Cannula 3.0 Lab Results: Results Past 24 Hours Test 01/08/17 05:59 Range/Units White Blood Count 9.36 4.8-10.8 K/uL Red Blood Count 4.83 4.7-6.1 M/uL Hemoglobin 14.2 14.0-18.0 g/dL Hematocrit 48.3 42-52 % Mean Corpuscular Volume 100.0 80-100 fL Mean Corpuscular Hemoglobin 29.4 25-34 pg Mean Corpuscular Hemoglobin Concent 29.4 32-36 g/dl RDW Standard Deviation 50.7 36.4-46.3 fL RDW Coefficient of Variation 13.8 11.5-14.5 % Platelet Count 179 130-400 K/uL Mean Platelet Volume 10.7 7.4-10.4 fL Prothrombin Time 34.8 9.0-12.0 SECONDS Prothromb Time International Ratio 3.1 0.9-1.1 Sodium Level 141 136-145 mmol/L Potassium Level 3.9 3.5-5.1 mmol/L Chloride Level 95 98-107 mmol/L Carbon Dioxide Level 42 21-32 mmol/L Anion Gap 4.0 3-11 mmol/L Blood Urea Nitrogen 21 7-18 mg/dl Creatinine 1.10 0.60-1.40 mg/dl Est Creatinine Clear Calc Drug Dose 51.0 ml/min Estimated GFR () 69.1 Estimated GFR (Non- 59.6 BUN/Creatinine Ratio 18.8 10-20 Random Glucose 126 70-99 mg/dl Calcium Level 8.5 8.5-10.1 mg/dl Magnesium Level 2.5 1.8-2.4 mg/dl
[2017-01-08] MEDS ORDERED: FUROSEMIDE INJ 20 MG in SYRINGE 0 ML IV ONE (19:30)
[2017-01-08] MEDS ORDERED: ALBUT/IPRATROP 3MG/0.5MG NEB 3 ML VIAL INH PRN (21:30)
[2017-01-08] MEDS ORDERED: ALBUT/IPRATROP 3MG/0.5MG NEB 3 ML VIAL INH STA (21:33)
[2017-01-08 22:39] LABS: ALLEN TEST POS (POS); ARTERIAL BLD GAS O2 SATURATION 88.4 % (90-95); ARTERIAL BLOOD GAS BASE EXCESS 14.6 mEq/L (-9-1.8); ARTERIAL BLOOD GAS HCO3 43 mmol/L (19-24); ARTERIAL BLOOD GAS PO2 54 mmHg (80-95); O2 ADMINISTRATION 50% VENTIMASK
[2017-01-08] MEDS ORDERED: FUROSEMIDE INJ 40 MG in SYRINGE 0 ML IV STA (22:53)
[2017-01-08] MEDS ORDERED: METHYLPREDNISOLONE IV 40 MG in SYRINGE 0 ML IV STA (22:54)
--- NOTE | 2017-01-08 22:57 | DIAGNOSTIC IMAGING REPORT ---
CHEST ONE VIEW PORTABLE HISTORY: Short of breath. COMPARISON: Chest 01/07/2017. FINDINGS: Slight improvement in the bilateral airspace opacities and interstitial thickening. Small bilateral pleural effusions have also slightly improved. The heart is stable in size. No pneumothorax. IMPRESSION: Improvement in the bilateral airspace opacities and small bilateral pleural effusions. This may represent resolving pulmonary edema or pneumonia. Electronically signed by: Brenton Aguila M.D. 01/08/2017 10:56 PM Dictated Date/Time: 01/08/2017 10:55 PM
[2017-01-09] VITALS (8 sets, daily range): BP systolic 116–135; BP diastolic 54–69; PULSE 72–86; TEMP 36.4–36.9; O2SAT 87–97
[2017-01-09] MEDS: PIPERACILL/TAZOBAC IV 3.375 GM in DEXTROSE 5% 100ML 100 ML IV SCH (04:39)
[2017-01-09 06:52] LABS: HEMATOCRIT 49.8 % (42-52); MEAN CELL VOLUME 100.6 fL (80-100); MEAN CORPUSCULAR HEMOGLOBIN 30.7 pg (25-34); MEAN CORPUSCULAR HGB CONC 30.5 g/dl (32-36); MEAN PLATELET VOLUME 10.5 fL (7.4-10.4); PLATELET COUNT 139 K/uL (130-400); RED BLOOD COUNT 4.95 M/uL (4.7-6.1); WHITE BLOOD COUNT 6.27 K/uL (4.8-10.8)
[2017-01-09] MEDS: ALBUT/IPRATROP 3MG/0.5MG NEB 3 ML VIAL INH SCH (06:55)
[2017-01-09 07:00] LABS: INR 2.6 (0.9-1.1); PROTHROMBIN TIME (PATIENT) 29.3 SECONDS (9.0-12.0)
--- NOTE | 2017-01-09 07:04 | DIAGNOSTIC IMAGING REPORT ---
CHEST ONE VIEW PORTABLE CLINICAL HISTORY: SOB /chf COMPARISON STUDY: 01/08/2017 FINDINGS: The heart remains enlarged. There is aortic tortuosity/ectasia. There is radiographic evidence of congestive failure with bilateral pleural effusions similar to the preceding study. Bibasilar airspace opacities are likely atelectatic. IMPRESSION: Persistent congestive heart failure pattern with bilateral pleural effusions and mild interstitial edema. Persistent bibasilar opacities, likely atelectatic Electronically signed by: Rashad Cooper M.D. 01/09/2017 7:03 AM Dictated Date/Time: 01/09/2017 7:02 AM
[2017-01-09 07:26] LABS: BUN/CREATININE RATIO 16.7 (10-20); CALCIUM 8.7 mg/dl (8.5-10.1); CREATININE 1.2 mg/dl (0.60-1.40); MAGNESIUM 2.1 mg/dl (1.8-2.4); POTASSIUM 3.8 mmol/L (3.5-5.1)
[2017-01-09] MEDS: AMLODIPINE BESYLATE 5 MG TAB PO SCH (09:13)
[2017-01-09] MEDS: CALCIUM 600MG + VIT D 400 IU TAB PO SCH (09:13)
[2017-01-09] MEDS: ASPIRIN 81 MG ECTAB PO SCH (09:13)
[2017-01-09] MEDS: CHOLECALCIFEROL 1000 INTER.UNIT TAB PO SCH (09:13)
[2017-01-09] MEDS: DIGOXIN 0.125 MG TAB PO SCH (09:13)
[2017-01-09] MEDS: FUROSEMIDE 20 MG TAB PO SCH (09:13)
[2017-01-09] MEDS: MULTIVITAMIN TAB PO SCH (09:14)
[2017-01-09] MEDS: METOPROLOL TARTRATE 50 MG TAB PO SCH ×2 (09:14→19:51)
--- NOTE | 2017-01-09 10:40 | Pulmonary Consultation ---
History General Date of Service: Jan 09, 2017. Stated Complaint: PNA HPI The patient is a 86 year old male who presents to [facility] with complaints of PNA. The patient's primary care provider is Cj Galdamez M.D.. Has more than 50 pack years of smoking. Baseline o2 requirement is 2L His a year ago with brain tumor. Lost weight at that time. Since then has been living alone, cooks for himself Home health nurse comes and checks on him twice a week. Denies cough or sputum production By history appears that he was treated with intravesical chemo and continues to f/u with oncology Historian: patient Review of Systems Constitutional: reports: malaise, weakness, weight loss Eyes: denies: no symptoms, as stated in HPI, eye pain, tearing, itching, redness, discharge, double vision, visual changes, blurred vision, photophobia, other ENT: denies: no symptoms, as stated in HPI, ear pain, ear discharge, loss of hearing, tinnitus, nasal pain, nasal congestion, rhinorrhea, epistaxis, sore throat, stridor, throat swelling, mouth pain, mouth swelling, dental pain, gum swelling, other Cardiovascular: denies: no symptoms, as stated in HPI, chest pain, chest pressure, chest tightness, diaphoresis, edema, intermittent claudication, orthopnea, palpitations, syncope, other Respiratory: reports: shortness of breath, MENDEZ Gastrointestinal: denies: no symptoms, as stated in HPI, abdominal pain, constipation, diarrhea, nausea, vomiting, hematemesis, hematochezia, hemorrhoids , anorexia, appetite changes, stool changes, flatulence, belching, food intolerance, jaundice, other Genitourinary - Male: denies: no symptoms, as stated in HPI, dysuria, hematuria , hesitancy, impotence, itching, penile discharge, rash, urinary frequency, urinary incontinence, urinary retention, urinary urgency, other Musculoskeletal: denies: no symptoms, as stated in HPI, arthralgias, neck pain , back pain, joint pain, joint swelling, deformity, myalgias, muscle spasms, other Integumentary: denies: no symptoms, as stated in HPI, rash, redness, warmth, itching, dryness, lesions, lumps, change in color, change in hair/nails, other Neurologic: denies: no symptoms, as stated in HPI, headache, dizziness, general weakness, focal weakness, numbness, tingling, paresthesia, pre-existing deficit, tremors, tics, vertigo, seizure, lethargy, memory loss, other Psychiatric: denies: no symptoms, as stated in HPI, anxiety, depression, suicidal ideation, homicidal ideation, visual hallucinations, auditory hallucinations, mood changes, alcohol abuse, drug abuse, other Endocrine: denies: no symptoms, as stated in HPI, cold intolerance, heat intolerance, hair changes, goiter, polydipsia, polyuria, skin changes, other Hematologic / Lymphatic: denies: no symptoms, as stated in HPI, abnormal clotting, adenopathy, anemia, easy bleeding, easy bruising, gums bleeding, petechiae, other Allergic / Immunologic: denies: no symptoms, as stated in HPI, eczema, environmental allergies, frequent infections, hives, multiple food allergies, seasonal allergies, pet sensitivities, poor healing, prolonged convalescence, other All Other Symptoms All Other Systems: Reviewed and Negative Past Medical History Past Medical History: A Fib, cancer, COPD Family History FH: aneurysm FH: cancer Social History Hx Tobacco Use In Past Year?: No Smoking Status: Former Smoker (quit 2008. 64 pack year history.) Marital status: Housing status: lives alone (independent for ADLs. daughter lives close by and organizes medications. ) Occupational Status: retired Allergies Coded Allergies: No Known Allergies (Unverified , `, 11/19/16) Current Medications Reported Home Medications Medications Dose Route/Sig Max Daily Dose Days Date Category Dose Instructions Ventolin Hfa (Albuterol) 60 Puffs/5400 Mcg Aers 2 Puffs INH TID PRN 01/06/17 Reported Aspirin Ec (Aspirin) 81 Mg Tab 81 Mg PO DAILY 01/06/17 Reported Calcium (Calcium Carbonate-Vitamin D) 1 Tab Tab 2 Tab PO DAILY 01/06/17 Reported Vitamin D3 (Cholecalciferol) Unknown Strength Tab 1,000 Units PO DAILY 01/06/17 Reported Multivitamin (Multivitamins) Tab 1 Tab PO DAILY 01/06/17 Reported Norvasc (Amlodipine Besylate) 5 Mg Tab 5 Mg PO QAM 01/06/17 Reported Lasix (Furosemide) 20 Mg Tab 20 Mg PO QAM 01/06/17 Reported Lopressor (Metoprolol Tartrate) 50 Mg Tab 50 Mg PO BID 01/06/17 Reported Digoxin 0.125 Mg Tab 0.125 Mg PO DAILY 01/06/17 Reported @ 1600 Coumadin (Warfarin Sodium) 5 Mg Tab 5 Mg PO QPM 01/06/17 Reported Physical Physical Exam Vital Signs: Date Time Temp Pulse Resp B/P (MAP) Pulse Ox O2 Delivery O2 Flow Rate FiO2 01/09/17 09:25 86 97 6.0 01/09/17 09:13 80 01/09/17 08:00 Venturi Mask 50 01/09/17 07:45 36.8 86 16 117/68 (84) 94 12.0 01/09/17 06:55 84 20 96 Venturi Mask 50 01/09/17 04:00 36.4 85 18 124/65 (84) 95 Venturi Mask 5.0 50 01/09/17 04:00 Venturi Mask 50 01/08/17 23:59 Venturi Mask 50 01/08/17 23:37 36.4 74 20 124/65 (84) 98 Venturi Mask 5.0 50 01/08/17 22:17 71 18 96 Venturi Mask 50 01/08/17 20:29 36.4 85 24 147/64 (91) 93 Room Air 01/08/17 20:00 91 Nasal Cannula 5.0 01/08/17 19:55 74 133/61 (85) 01/08/17 19:16 79 16 91 Nasal Cannula 5.0 01/08/17 16:00 91 Nasal Cannula 5.0 01/08/17 15:39 82 89 01/08/17 15:11 36.4 92 20 135/68 (90) 92 Nasal Cannula 5.0 01/08/17 14:34 74 20 78 Room Air 01/08/17 12:17 36.3 73 20 143/67 (92) 86 Nasal Cannula 5.0 01/08/17 12:00 97 Nasal Cannula 5.0 01/08/17 11:13 74 20 95 Nasal Cannula 5.0 thin built General Appearance: mild distress Head: NORMOCEPHALIC, ATRAUMATIC Eyes: NO DISCHARGE ENT: NORMAL EAR EXAM, NORMAL NASAL EXAM, NORMAL MOUTH EXAM, NORMAL THROAT EXAM , NORMAL DENTAL EXAM Neck: NORMAL RANGE OF MOTION, NO TENDERNESS, TRACHEA MIDLINE, NO STRIDOR Respiratory: other (very poor air entry b/l) Cardiovasular: irregular rate Abdomen: NON TENDER, NORMAL BOWEL SOUNDS, NO REBOUND, NO MASSES, NO GUARDING, NO ORGANOMEGALY Upper Extremities: NO EDEMA, NO DEFORMITY, NORMAL ROM Neuro: ALERT, ORIENTED x 3 Psychiatric: NORMAL AFFECT, NO SUICIDAL IDEATION Diagnostics Labs Results Past 24 Hours Test 01/08/17 22:25 01/09/17 06:37 01/09/17 10:21 Range/Units Arterial Blood pH 7.40 7.35-7.45 Arterial Blood Partial Pressure CO2 71 35-46 mmHg Arterial Blood Partial Pressure O2 54 80-95 mmHg Arterial Blood HCO3 43 19-24 mmol/L Arterial Blood Oxygen Saturation 88.4 90-95 % Arterial Blood Base Excess 14.6 -9-1.8 mEq/L Arterial Blood Gas Delivery 50% VENTIMASK Jr Test POS POS White Blood Count 6.27 4.8-10.8 K/uL Red Blood Count 4.95 4.7-6.1 M/uL Hemoglobin 15.2 14.0-18.0 g/dL Hematocrit 49.8 42-52 % Mean Corpuscular Volume 100.6 80-100 fL Mean Corpuscular Hemoglobin 30.7 25-34 pg Mean Corpuscular Hemoglobin Concent 30.5 32-36 g/dl RDW Standard Deviation 51.2 36.4-46.3 fL RDW Coefficient of Variation 13.7 11.5-14.5 % Platelet Count 139 130-400 K/uL Mean Platelet Volume 10.5 7.4-10.4 fL Prothrombin Time 29.3 9.0-12.0 SECONDS Prothromb Time International Ratio 2.6 0.9-1.1 Sodium Level 142 136-145 mmol/L Potassium Level 3.8 3.5-5.1 mmol/L Chloride Level 90 98-107 mmol/L Carbon Dioxide Level 53 21-32 mmol/L Anion Gap -1.0 3-11 mmol/L Blood Urea Nitrogen 20 7-18 mg/dl Creatinine 1.20 0.60-1.40 mg/dl Est Creatinine Clear Calc Drug Dose 46.7 ml/min Estimated GFR () 62.2 Estimated GFR (Non- 53.7 BUN/Creatinine Ratio 16.7 10-20 Random Glucose 137 70-99 mg/dl Calcium Level 8.7 8.5-10.1 mg/dl Magnesium Level 2.1 1.8-2.4 mg/dl Diagnostic Radiology IMPRESSION: Persistent congestive heart failure pattern with bilateral pleural effusions and mild interstitial edema. Persistent bibasilar opacities, likely atelectatic Impression Assessment and Plan (1) History of bladder cancer Status: Chronic Assessment & Plan: f/u with oncology recommend to d/c [place] palliative care consult (2) COPD (chronic obstructive pulmonary disease) Status: Chronic Assessment & Plan: clinically appears to have significant copd ABG from 01/08/17 reveals well compensated hypercarbia continue neb rx add pulmicort will not be able to do inhalers increase home o2 to 6L and reassess after 1 month after discharge continue bipap prn daytime and night might be able to get it approved with abg showing hypercarbia (3) Hypoxia Assessment & Plan: due to copd o2 supplementation to keep sats above 88% (4) Mediastinal adenopathy Status: Chronic reviewed his ct chest : enlarged right paratracheal lymph node on the Ct chest from 11/24, very suspicious for malignancy : could be mets from bladder ca vs primary d/w patient about EBUS TBNA. patient declines Does not want any procedures He understands that his prognosis is poor at this time and open to discussion about hospice
[2017-01-09 11:18] LABS: ARTERIAL BLOOD GAS BASE EXCESS 16.8 mEq/L (-9-1.8); ARTERIAL BLOOD GAS HCO3 43 mmol/L (19-24); ARTERIAL BLOOD GAS PO2 59 mm/Hg (80-95); ARTERIAL BLOOD GAS pH 7.48 (7.35-7.45)
[2017-01-09 11:20] LABS: ALLEN TEST POS (POS); O2 ADMINISTRATION 6 L
--- NOTE | 2017-01-09 12:13 | Progress Note ---
Internal Med Progress Note Date of Service: Jan 09, 2017. Provider Documentation: SUBJECTIVE: very SOB , hypoxic this AM Spo2 82 % on 5 L 02 tachypneic CO2 in AM lab > 50 was on CPAP last night , could not tolerate for long as his nasal bridge was hurting form the mask asked respiratory to place bipap on the pt ordered for ABG pulmonology eval requested OBJECTIVE: Vital Signs-as noted below Exam: General-in respiratory distress, sitting up on side of bed on venturi mask Eyes-sclera non icteric ENT-NAd Neck-no JVD Lungs-coarse rales at base Heart-irregular Abdomen-soft, non tender Extremities-no lower ext edema Neuro-no focal deficit Lab data as noted below. ASSESSMENT & PLAN: ACUTE ON CHRONIC HYPOXIC RESPIRATORY FAILURE : Multifactorial -bilateral mediastinal lymphadenopathy( concern for malignancy ) /Acute diastolic HF /aspiration pneumonia Presented with increased exertional dyspnea, cough with white sputum, hypoxia to 80's on his chronic 2 liters NC-required 4 L 02 CXR shows mediastinal widening suspicious for adenopathy, progressive bibasilar airspace opacities suspicious for pneumonia, small bilateral pleural effusions Recent possible aspiration pneumonia 11/2016 treated with Unasyn/ doxycycline then clindamycin; denies recent aspiration episode recent speech eval, video swallow- No aspiration, moderately disordered hypopharyngeal, oral motility, trace penetration, recommended GI evaluation, was placed on slippery diet with aspiration/GERD precautions; seen by GI, declined dilation/ EGD on empiric ABx with Zosyn developed worsening of respiratory distress /hypoxia today Pulmonology eval requested -appreciate input poor prognosis given -possible underlying Lung malignancy : enlarged right paratracheal lymph node on the Ct chest from 11/24, very suspicious for malignancy possible mets from bladder ca vs primary lung CA pt declined Bronchoscopic Biopsy in Last admission refused Bronchoscopic biopsy today to Pulmonology does not want any aggressive intervention to be done Palliative care consulted ACUTE DECOMPENSATION OF CHRONIC SYSTOLIC/ DIASTOLIC/ VALVULAR CHF Echo 11/21/16- moderate concentric LVH, EF 65-70%, mod-severe , mild MR, mild TR, pulmonary hypertension continued hypoxia , with bibasilar rales cxray shows pulmonary congestion /bilateral on Lasix 20 mg PO daily given 20 mg IV Lasix X1 yesterday repeat Cxray in Am -shows persisted pulmonary congestion developing worsening of hypoxia -possible due to primary lung disease / malignancy poor prognosis ATRIAL FIBRILLATION Continue metoprolol and digoxin INR elevated Coumadin on hold Monitor INR given possible underlying malignancy -poor candidate for anticoagulation will D/C Coumadin HYPERTENSION BP is stable Continue amlodipine, metoprolol, furosemide CKD STAGE III Creat is 1.0-> 1.2 ; stable from baseline MEDIASTINAL LYMPHADENOPATHY/POSSIBLE LUNG MALIGNANCY VS METASTATIC DISEASE Noted on CT chest 11/23/[address] surgery evaluation done in last admission found to be high risk for bronchoscopic biopsy pt declined USG guided FNA Declined Bronchoscopy biopsy to Pulmonology this admission poor prognosis with progressive decline in respiratory status HX BLADDER CA Follows with Dr. Cabrera concern for potential malignancy to lung DVT PROPHYLAXIS Coumadin CODE STATUS Level 3 per preference on recent admission November 2016 will d/w Pt and daughter addressing code status poor prognosis DNR would be appropriate DISPOSITION Lives alone; daughter helps with meds palliative care consulted left message for daughter , will update her a she arrives to hospital pt and daughter been updated by Palliative care nurse regarding Hospice consult Follows with Dr. Galdamez for primary care Vital Signs: Date Time Temp Pulse Resp B/P (MAP) Pulse Ox O2 Delivery O2 Flow Rate FiO2 01/09/17 11:54 36.9 75 22 135/69 (91) 94 BiPAP 01/09/17 10:30 BiPAP 7.0 01/09/17 10:30 36.8 72 24 116/55 (75) 93 BiPAP 7.0 01/09/17 09:25 86 97 6.0 01/09/17 09:13 80 01/09/17 08:00 Venturi Mask 50 01/09/17 07:45 36.8 86 16 117/68 (84) 94 12.0 01/09/17 06:55 84 20 96 Venturi Mask 50 01/09/17 04:00 36.4 85 18 124/65 (84) 95 Venturi Mask 5.0 50 01/09/17 04:00 Venturi Mask 50 01/08/17 23:59 Venturi Mask 50 01/08/17 23:37 36.4 74 20 124/65 (84) 98 Venturi Mask 5.0 50 01/08/17 22:17 71 18 96 Venturi Mask 50 01/08/17 20:29 36.4 85 24 147/64 (91) 93 Room Air 01/08/17 20:00 91 Nasal Cannula 5.0 01/08/17 19:55 74 133/61 (85) 01/08/17 19:16 79 16 91 Nasal Cannula 5.0 01/08/17 16:00 91 Nasal Cannula 5.0 01/08/17 15:39 82 89 01/08/17 15:11 36.4 92 20 135/68 (90) 92 Nasal Cannula 5.0 01/08/17 14:34 74 20 78 Room Air 01/08/17 12:17 36.3 73 20 143/67 (92) 86 Nasal Cannula 5.0 01/08/17 12:00 97 Nasal Cannula 5.0 Lab Results: Results Past 24 Hours Test 01/08/17 22:25 01/09/17 06:37 01/09/17 11:03 Range/Units Arterial Blood pH 7.40 7.48 7.35-7.45 Arterial Blood Partial Pressure CO2 71 59 35-46 mmHg Arterial Blood Partial Pressure O2 54 59 80-95 mm/Hg Arterial Blood HCO3 43 43 19-24 mmol/L Arterial Blood Oxygen Saturation 88.4 92.0 90-95 % Arterial Blood Base Excess 14.6 16.8 -9-1.8 mEq/L Arterial Blood Gas Delivery 50% VENTIMASK 6 L Jr Test POS POS POS White Blood Count 6.27 4.8-10.8 K/uL Red Blood Count 4.95 4.7-6.1 M/uL Hemoglobin 15.2 14.0-18.0 g/dL Hematocrit 49.8 42-52 % Mean Corpuscular Volume 100.6 80-100 fL Mean Corpuscular Hemoglobin 30.7 25-34 pg Mean Corpuscular Hemoglobin Concent 30.5 32-36 g/dl RDW Standard Deviation 51.2 36.4-46.3 fL RDW Coefficient of Variation 13.7 11.5-14.5 % Platelet Count 139 130-400 K/uL Mean Platelet Volume 10.5 7.4-10.4 fL Prothrombin Time 29.3 9.0-12.0 SECONDS Prothromb Time International Ratio 2.6 0.9-1.1 Sodium Level 142 136-145 mmol/L Potassium Level 3.8 3.5-5.1 mmol/L Chloride Level 90 98-107 mmol/L Carbon Dioxide Level 53 21-32 mmol/L Anion Gap -1.0 3-11 mmol/L Blood Urea Nitrogen 20 7-18 mg/dl Creatinine 1.20 0.60-1.40 mg/dl Est Creatinine Clear Calc Drug Dose 46.7 ml/min Estimated GFR () 62.2 Estimated GFR (Non- 53.7 BUN/Creatinine Ratio 16.7 10-20 Random Glucose 137 70-99 mg/dl Calcium Level 8.7 8.5-10.1 mg/dl Magnesium Level 2.1 1.8-2.4 mg/dl
--- NOTE | 2017-01-09 12:54 | Palliative Care Consultation ---
Consultation Date of Consultation: Jan 09, 2017. Requesting Physician: Dr. Garnett Attending Physician: Dr. Garnett Reason for Consultation: Goals of care History of Present Illness Mr. Bishop is an 86 year old patient who presented to the ED three days ago with SOB. He has a long-standing history of advanced COPD and others listed below. He was recently in the hospital in November for atrial fibrillation with RVR, acute respiratory failure and pneumonia, possibly aspiration. Had a video swallow which showed no aspiration. Also had a CT at that time which showed mediastinal lymphadenopathy. Cardiothoracic surgery was consulted for possible biopsy, but it was cancelled due to high risk. US guided fine needle aspiration was offered but patient declined as he would not want any treatment for cancer. Patient was discharged to home with home health. He lives alone with his daughter next door. Home health nurse was visiting and noted patient's o2 saturation to be in the 80s on his normal 2LNC and patient had increased SOB, so he came to ED. He has bilateral pneumonia, COPD exacerbation and acute respiratory failure. Pulmonology is following. Patient treated with IV abx, steroids and nebulizers. Unfortunately, patient's condition seems to be regressing. Oxygen requirements continue to increase, now requiring bipap to maintain saturations. CO2 elevated at 52. Given his advanced age, comorbidities , and no signs of improvement, pulmonology and primary service recommending hospice care. Palliative care consulted to establish goals and discuss options. I met with the patient in room 244. He is awake, alert and oriented. Some forgetfulness but able to make decisions and hold conversation appropriately. He denies any pain and says his SOB is less on bipap. He has no pain but states the mask is uncomfortable. Patient stated, "I know I'm on my way out. I realize I'm not going to get better." Patient also said, "I don't want to live this way. " Said his in April and he would not want to live the way she was prior to her . His goal is to get back to his home, but he is uncertain if that's possible at this point. Open to the idea of hospice care. We discussed continuing current treatment vs. comfort measures only-- he does not want to make any decisions without talking to his daughter/POA, Arianna Bishop. With patient' s permission I called Arianna and updated her on her father's condition and the conversation I had with him. She was tearful but understanding. She will be in later today to have a conversation with her father about his wishes. I gave her my cell number to call later I she'd like a meeting. Both patient and Arianna confirmed patient's living will which states patient wants to be made comfortable when he is at end-stage disease. Past Medical/Surgical History Medical History: Aortic stenosis, severe Atrial fibrillation Chronic combined systolic and diastolic CHF (congestive heart failure) CKD (chronic kidney disease), stage III COPD (chronic obstructive pulmonary disease) Dyslipidemia History of bladder cancer History of prostate cancer Hypertension Mediastinal adenopathy Mitral regurgitation Prostate CA Pulmonary hypertension Tricuspid regurgitation Surgical Problems: Cystoscopy Prostate biopsy Cataract surgery Social History Smoking Status: Former Smoker (quit 2007. 64 pack year history.) History of Alcohol Use: Yes (occasional beer) Marital Status: Housing Status: lives alone (independent for ADLs. daughter lives close by and organizes medications. ) Occupation Status: retired Review of Systems Constitutional: + weakness ENT: + problem reported (ill-fitting dentures with weight loss) Respiratory: + cough (chronic), + shortness of breath, + dyspnea at rest Cardiac: + edema, No chest pain Abdomen: No pain, No nausea, No vomiting Psychiatric: No anxiety Allergies Coded Allergies: No Known Allergies (Unverified , `, 11/19/16) Medications Current Inpatient Medications Medications (Trade) Dose Ordered Sig/Reginaldo Route Start Time Stop Time Status Last Admin Dose Admin Acetaminophen (Tylenol Tab) 650 mg Q4H PRN PO 01/06/17 15:30 02/05/17 15:29 Al Hydrox/Mg Hydrox/Simethicone (Maalox Max Susp) 15 ml Q4H PRN PO 01/06/17 15:30 02/05/17 15:29 Magnesium Hydroxide (Milk Of Magnesia Susp) 30 ml Q12H PRN PO 01/06/17 15:30 02/05/17 15:29 Zolpidem Tartrate (Ambien Tab) 5 mg HSZ PRN PO 01/06/17 15:30 02/05/17 15:29 Ondansetron HCl (Zofran Inj) 4 mg Q6H PRN IV 01/06/17 15:30 02/05/17 15:29 Nitroglycerin (Nitrostat Tab) 0.4 mg UD PRN SL 01/06/17 15:30 02/05/17 15:29 Polyethylene (Miralax Powder Packet) 17 gm DAILY PRN PO 01/06/17 15:30 02/05/17 15:29 Albuterol/ Ipratropium (Duoneb) 3 ml QIDR INH 01/06/17 16:00 02/05/17 15:59 01/09/17 06:55 3 ML Albuterol/ Ipratropium (Duoneb) 3 ml Q2H PRN INH 01/06/17 15:45 02/05/17 15:44 Amlodipine Besylate (Norvasc Tab) 5 mg QAM PO 01/07/17 09:00 02/06/17 08:59 01/09/17 09:13 5 MG Aspirin (Ecotrin Tab) 81 mg DAILY PO 01/07/17 09:00 02/06/17 08:59 01/09/17 09:13 81 MG Digoxin (Lanoxin Tab) 0.125 mg DAILY PO 01/07/17 09:00 02/06/17 08:59 01/09/17 09:13 0.125 MG Furosemide (Lasix Tab) 20 mg QAM PO 01/07/17 09:00 02/06/17 08:59 01/09/17 09:13 20 MG Metoprolol Tartrate (Lopressor Tab) 50 mg BID PO 01/07/17 09:00 02/06/17 08:59 01/09/17 09:14 50 MG Multivitamins (Multivitamin Tab) 1 tab DAILY PO 01/07/17 09:00 02/06/17 08:59 01/09/17 09:14 1 TAB Warfarin Sodium (Coumadin Tab) 5 mg QPM PO 01/06/17 21:00 02/05/17 20:59 Future Hold 01/06/17 20:05 5 MG Calcium/Vitamin D (Caltrate Plus Tab) 2 tab DAILY PO 01/07/17 09:00 02/06/17 08:59 01/09/17 09:13 2 TAB Cholecalciferol (Vitamin D Tab) 1,000 inter.unit DAILY PO 01/07/17 09:00 02/06/17 08:59 01/09/17 09:13 1,000 INTER.UNIT Albuterol/ Ipratropium (Duoneb) 3 ml Q2H PRN INH 01/08/17 21:30 02/07/17 21:29 Physical Exam Date Time Temp Pulse Resp B/P (MAP) Pulse Ox O2 Delivery O2 Flow Rate FiO2 01/09/17 11:54 36.9 75 22 135/69 (91) 94 BiPAP 01/09/17 10:30 BiPAP 7.0 01/09/17 10:30 36.8 72 24 116/55 (75) 93 BiPAP 7.0 01/09/17 09:25 86 97 6.0 01/09/17 09:13 80 01/09/17 08:00 Venturi Mask 50 01/09/17 07:45 36.8 86 16 117/68 (84) 94 12.0 01/09/17 06:55 84 20 96 Venturi Mask 50 01/09/17 04:00 36.4 85 18 124/65 (84) 95 Venturi Mask 5.0 50 01/09/17 04:00 Venturi Mask 50 01/08/17 23:59 Venturi Mask 50 01/08/17 23:37 36.4 74 20 124/65 (84) 98 Venturi Mask 5.0 50 01/08/17 22:17 71 18 96 Venturi Mask 50 01/08/17 20:29 36.4 85 24 147/64 (91) 93 Room Air 01/08/17 20:00 91 Nasal Cannula 5.0 01/08/17 19:55 74 133/61 (85) 01/08/17 19:16 79 16 91 Nasal Cannula 5.0 01/08/17 16:00 91 Nasal Cannula 5.0 01/08/17 15:39 82 89 01/08/17 15:11 36.4 92 20 135/68 (90) 92 Nasal Cannula 5.0 01/08/17 14:34 74 20 78 Room Air 01/08/17 12:17 36.3 73 20 143/67 (92) 86 Nasal Cannula 5.0 General Appearance: no apparent distress, + thin, + pertinent finding ( chronically ill appearing) ENT: hearing grossly normal Neck: supple, no JVD Respiratory: no respiratory distress, no accessory muscle use, + decreased breath sounds Cardiovascular: + irregularly irregular, + normal peripheral pulses, + pertinent finding (trace pitting edema of feet and ankles) Abdomen: normal bowel sounds, non tender, soft Neurologic/Psychiatric: alert, normal mood/affect, oriented x 3 Laboratory Results Last 24 Hours Test 01/08/17 22:25 01/09/17 06:37 01/09/17 11:03 Arterial Blood pH 7.40 7.48 Arterial Blood Partial Pressure CO2 71 mmHg 59 mmHg Arterial Blood Partial Pressure O2 54 mmHg 59 mm/Hg Arterial Blood HCO3 43 mmol/L 43 mmol/L Arterial Blood Oxygen Saturation 88.4 % 92.0 % Arterial Blood Base Excess 14.6 mEq/L 16.8 mEq/L Arterial Blood Gas Delivery 50% VENTIMASK 6 L Jr Test POS POS White Blood Count 6.27 K/uL Red Blood Count 4.95 M/uL Hemoglobin 15.2 g/dL Hematocrit 49.8 % Mean Corpuscular Volume 100.6 fL Mean Corpuscular Hemoglobin 30.7 pg Mean Corpuscular Hemoglobin Concent 30.5 g/dl RDW Standard Deviation 51.2 fL RDW Coefficient of Variation 13.7 % Platelet Count 139 K/uL Mean Platelet Volume 10.5 fL Prothrombin Time 29.3 SECONDS Prothromb Time International Ratio 2.6 Sodium Level 142 mmol/L Potassium Level 3.8 mmol/L Chloride Level 90 mmol/L Carbon Dioxide Level 53 mmol/L Anion Gap -1.0 mmol/L Blood Urea Nitrogen 20 mg/dl Creatinine 1.20 mg/dl Est Creatinine Clear Calc Drug Dose 46.7 ml/min Estimated GFR () 62.2 Estimated GFR (Non- 53.7 BUN/Creatinine Ratio 16.7 Random Glucose 137 mg/dl Calcium Level 8.7 mg/dl Magnesium Level 2.1 mg/dl Assessment & Plan Palliative Performance Scale: 30 % Problem list: SOB Acute on chronic respiratory failure COPD exacerbation Afib Mediastinal lymphadenopathy ?Lung cancer Hx of bladder cancer Goals of care (Z51.5) Palliative care recommendations: -Patient confirmed he does not want aggressive treatment or really any escalation in care. -Given the patient's advanced age, end-stage COPD, and now continued decline in his condition despite treatment here at the hospital, I would certainly recommend comfort care or hospice care. -Patient's goal is to get back home and is open to hospice services. However, he is undecided on whether to continue treatment at this time or to transition to comfort measures only. with patient's respiratory failure and SOB, I don't know if his symptoms would be well-enough managed or he'd be stable enough for transfer. -Options would be to continue treatment for now to see if any improvement in next 24 hours, with the goal of getting patient back home. 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 If patient requiring hospital for symptom management, could GIP him here. On the other hand, if patient wishes to continue treatment and he unexpectedly improves, other plans/ arrangements could be made at that time. If patient goes home on hospice he would certainly need 24-hour care. -These options were discussed with patient and Arianna. I am available to discuss once patient and daughter have had a chance to talk. Thank you kindly for this consult.
--- NOTE | 2017-01-09 15:05 | Progress Note ---
Progress Note Date of Service Jan 09, 2017. Progress Note ATTENDING NOTE : Spoke with Pt's daughter understands the poor prognosis and declining respiratory status pt is transitioned to 6 L 02 via venturi mask appears comfortable verbalizes he does not want any aggressive intervention does not want any Chemo tx or intervention for mediastinal mass lost his last Sept for metastatic breast CA -was in home hospice Daughter and pt both familiar with palliative care /hospice pt wants to return home with comfort care will need 24/7 care given severe hypoxia at baseline Pt and Daughter chose [facility] , was involved in his 's care and was happy with the service Social service updated to provide information regarding resources for home health aide caregiver pt will be transferred to Medical floor with Comfort care will complete Abx course for pneumonia as per Daughter's request Code status changed to DNR/DNI as pt and daughter both verbalized strongly does not want any heroic measures
[2017-01-09] MEDS ORDERED: MoRPHine SULFATE 2 MG/ML CARP IV PRN (15:15)
[2017-01-09] MEDS ORDERED: LORAZEPAM 1 MG TAB SL PRN (15:15)
[2017-01-09] MEDS ORDERED: MoRPHine SULFATE 5 MG/0.25 ML UDP PO PRN (15:15)
[2017-01-09] MEDS ORDERED: LORAZEPAM 2 MG/ML 1 ML VIAL IV PRN (15:15)
[2017-01-09] MEDS ORDERED: LORAZEPAM INJ 1 MG in SYRINGE 0.5 ML IV PRN (16:00)
[2017-01-10 00:09] VITALS: BP 132/70; PULSE 67; TEMP 36.7; O2SAT 93
[2017-01-10 07:50] VITALS: BP 143/57; PULSE 77; TEMP 36.6; O2SAT 94
[2017-01-10] MEDS: METOPROLOL TARTRATE 50 MG TAB PO SCH ×2 (08:07→20:00)
--- NOTE | 2017-01-10 09:46 | Progress Note ---
Progress Note Date of Service Jan 10, 2017. Progress Note patient has been made comfort measures Home with hospice Will sign off at this time please reconsult prn
--- NOTE | 2017-01-10 20:04 | Progress Note ---
Internal Med Progress Note Date of Service: Jan 10, 2017. Provider Documentation: SUBJECTIVE: pt remains in comfort care /hospice OBJECTIVE: Vital Signs-as noted below Exam: General-no sign of distress Eyes-sclera non icteric ENT-NAd Neck-no JVD Lungs-coarse rales at base Heart-irregular Abdomen-soft, non tender Extremities-no lower ext edema Neuro-no focal deficit Lab data as noted below. ASSESSMENT & PLAN: ACUTE ON CHRONIC HYPOXIC RESPIRATORY FAILURE : Multifactorial -bilateral mediastinal lymphadenopathy( concern for malignancy ) /Acute diastolic HF /aspiration pneumonia Presented with increased exertional dyspnea, cough with white sputum, hypoxia to 80's on his chronic 2 liters NC-required 4 L 02 CXR shows mediastinal widening suspicious for adenopathy, progressive bibasilar airspace opacities suspicious for pneumonia, small bilateral pleural effusions Recent possible aspiration pneumonia 11/2016 treated with Unasyn/ doxycycline then clindamycin; denies recent aspiration episode recent speech eval, video swallow- No aspiration, moderately disordered hypopharyngeal, oral motility, trace penetration, recommended GI evaluation, was placed on slippery diet with aspiration/GERD precautions; seen by GI, declined dilation/ EGD on empiric ABx with Zosyn developed worsening of respiratory distress /hypoxia today Pulmonology eval requested -appreciate input poor prognosis given -possible underlying Lung malignancy : enlarged right paratracheal lymph node on the Ct chest from 11/24, very suspicious for malignancy possible mets from bladder ca vs primary lung CA pt declined Bronchoscopic Biopsy in Last admission refused Bronchoscopic biopsy today to Pulmonology does not want any aggressive intervention to be done Palliative care consulted care transitioned to Comfort care /hospice ACUTE DECOMPENSATION OF CHRONIC SYSTOLIC/ DIASTOLIC/ VALVULAR CHF Echo 11/21/16- moderate concentric LVH, EF 65-70%, mod-severe , mild MR, mild TR, pulmonary hypertension continued hypoxia , with bibasilar rales cxray shows pulmonary congestion /bilateral on Lasix 20 mg PO daily given 20 mg IV Lasix X1 yesterday repeat Cxray in Am -shows persisted pulmonary congestion developing worsening of hypoxia -possible due to primary lung disease / malignancy poor prognosis ON HOSPICE CARE MEDIASTINAL LYMPHADENOPATHY/POSSIBLE LUNG MALIGNANCY VS METASTATIC DISEASE Noted on CT chest 11/23/[address] surgery evaluation done in last admission found to be high risk for bronchoscopic biopsy pt declined USG guided FNA Declined Bronchoscopy biopsy to Pulmonology this admission poor prognosis with progressive decline in respiratory status HOSPICE /PALLIATIVE CARE APPROPRIATE HX BLADDER CA Follows with Dr. Cabrera concern for potential malignancy to lung CODE STATUS DNR/DNI DISPOSITION On hospice care pt would like to return home with hospice care Social service /palliative care consulted Vital Signs: Date Time Temp Pulse Resp B/P (MAP) Pulse Ox O2 Delivery O2 Flow Rate FiO2 01/10/17 16:00 Nasal Cannula 6.0 Humidified Oxygen 01/10/17 08:00 Nasal Cannula 6.0 Humidified Oxygen 01/10/17 07:50 36.6 77 19 143/57 (85) 94 Nasal Cannula 6.0 01/10/17 00:09 36.7 67 18 132/70 (90) 93 Nasal Cannula 6.0 01/09/17 23:59 Nasal Cannula 6.0 Humidified Oxygen
[2017-01-10 20:38] VITALS: BP 120/80
[2017-01-11] MEDS: METOPROLOL TARTRATE 50 MG TAB PO SCH ×2 (08:05→20:00)
[2017-01-11 16:00] VITALS: O2SAT 94
[2017-01-11 20:17] VITALS: PULSE 72; O2SAT 96
--- NOTE | 2017-01-11 20:27 | Progress Note ---
Internal Med Progress Note Date of Service: Jan 11, 2017. Provider Documentation: SUBJECTIVE: pt remains in comfort care /hospice complains of SOB on 6 L 02 put on venturi mask 15 L PRN Morphine ordered OBJECTIVE: Vital Signs-as noted below Exam: General-no sign of distress Eyes-sclera non icteric ENT-NAd Neck-no JVD Lungs-coarse rales at base Heart-irregular Abdomen-soft, non tender Extremities-no lower ext edema Neuro-no focal deficit Lab data as noted below. ASSESSMENT & PLAN: ACUTE ON CHRONIC HYPOXIC RESPIRATORY FAILURE : end stage status : Multifactorial -bilateral mediastinal lymphadenopathy( possible malignancy ) / Acute diastolic HF /aspiration pneumonia Presented with increased exertional dyspnea, cough with white sputum, hypoxia to 80's on his chronic 2 liters NC-required 4 L 02 CXR shows mediastinal widening suspicious for adenopathy, progressive bibasilar airspace opacities suspicious for pneumonia, small bilateral pleural effusions Recent possible aspiration pneumonia 11/2016 treated with Unasyn/ doxycycline then clindamycin; denies recent aspiration episode recent speech eval, video swallow- No aspiration, moderately disordered hypopharyngeal, oral motility, trace penetration, recommended GI evaluation, was placed on slippery diet with aspiration/GERD precautions; seen by GI, declined dilation/ EGD on empiric ABx with Zosyn developed worsening of respiratory distress /hypoxia Pulmonology eval requested -appreciate input poor prognosis given -possible underlying Lung malignancy : enlarged right paratracheal lymph node on the Ct chest from 11/24, very suspicious for malignancy possible mets from bladder ca vs primary lung CA pt declined Bronchoscopic Biopsy in Last admission refused Bronchoscopic biopsy today to Pulmonology does not want any aggressive intervention to be done Palliative care consulted care transitioned to Comfort care /hospice ACUTE DECOMPENSATION OF CHRONIC SYSTOLIC/ DIASTOLIC/ VALVULAR CHF Echo 11/21/16- moderate concentric LVH, EF 65-70%, mod-severe , mild MR, mild TR, pulmonary hypertension continued hypoxia , with bibasilar rales cxray shows pulmonary congestion /bilateral on Lasix 20 mg PO daily given 20 mg IV Lasix X1 yesterday repeat Cxray in Am -shows persisted pulmonary congestion developing worsening of hypoxia -possible due to primary lung disease / malignancy poor prognosis ON HOSPICE CARE MEDIASTINAL LYMPHADENOPATHY/POSSIBLE LUNG MALIGNANCY VS METASTATIC DISEASE Noted on CT chest 11/23/[address] surgery evaluation done in last admission found to be high risk for bronchoscopic biopsy pt declined USG guided FNA Declined Bronchoscopy biopsy to Pulmonology this admission poor prognosis with progressive decline in respiratory status HOSPICE /PALLIATIVE CARE APPROPRIATE HX BLADDER CA Follows with Dr. Cabrera concern for potential malignancy to lung CONTINUE HOSPICE CARE CODE STATUS DNR/DNI DISPOSITION On hospice care pt would like to return home with hospice care Social service /palliative care consulted spoke with Daughter -given update Vital Signs: Date Time Temp Pulse Resp B/P (MAP) Pulse Ox O2 Delivery O2 Flow Rate FiO2 01/11/17 20:17 72 20 96 Non-Rebreather 15.0 100 01/11/17 16:00 94 Nasal Cannula 6.0 Humidified Oxygen 01/11/17 08:00 Nasal Cannula 6.0 Humidified Oxygen 01/11/17 03:18 Nasal Cannula 6.0 Humidified Oxygen 01/10/17 20:38 120/80 (93) 01/10/17 20:38 Nasal Cannula 6.0 Humidified Oxygen
[2017-01-11] MEDS: ATROPINE SULFATE 1% OP SOLN 5 ML BTL SL PRN (22:33)
[2017-01-12] MEDS: ATROPINE SULFATE 1% OP SOLN 5 ML BTL SL PRN (01:26)
--- NOTE | 2017-01-12 21:44 | Progress Note ---
Internal Med Progress Note Date of Service: Jan 12, 2017. Provider Documentation: SUBJECTIVE: pt remains in comfort care /hospice requiring high flow o2 10-15 L on venturi mask feels a bit better today less SOB Discussed in detail regarding plan of care with Daughter and sister present at bedside plan is to return home with hospice and comfort care OBJECTIVE: Vital Signs-as noted below Exam: minimum exam due to comfort care General-elderly male in moderate respiratory distress on NRB mask Lungs-coarse rales at base Neuro-no focal deficit Lab data as noted below. ASSESSMENT & PLAN: HOSPICE /COMFORT CARE : cont supplemental 02 via NRB PRN Roxanol for distress added IV Morphine Scopolamine patch , atropine gtt ordered for increased secretion ACUTE ON CHRONIC HYPOXIC RESPIRATORY FAILURE : end stage status : Multifactorial -bilateral mediastinal lymphadenopathy( possible malignancy ) / Acute diastolic HF /aspiration pneumonia Presented with increased exertional dyspnea, cough with white sputum, hypoxia to 80's on his chronic 2 liters NC-required 4 L 02 developed worsening of respiratory distress /hypoxia Pulmonology eval requested -appreciate input poor prognosis given -possible underlying Lung malignancy : enlarged right paratracheal lymph node on the Ct chest from 11/24, very suspicious for malignancy possible mets from bladder ca vs primary lung CA pt declined Bronchoscopic Biopsy in Last admission refused Bronchoscopic biopsy today to Pulmonology does not want any aggressive intervention to be done Palliative care consulted care transitioned to Comfort care /hospice plan to return home with Hospice care MEDIASTINAL LYMPHADENOPATHY/POSSIBLE LUNG MALIGNANCY VS METASTATIC DISEASE Noted on CT chest 11/23/[address] surgery evaluation done in last admission found to be high risk for bronchoscopic biopsy pt declined USG guided FNA Declined Bronchoscopy biopsy to Pulmonology this admission poor prognosis with progressive decline in respiratory status HOSPICE /PALLIATIVE CARE APPROPRIATE HX BLADDER CA Follows with Dr. Cabrera concern for potential malignancy to lung CONTINUE HOSPICE CARE CODE STATUS DNR/DNI DISPOSITION On hospice care pt would like to return home with hospice care Social service /palliative care consulted spoke with Daughter -given update Vital Signs: Date Time Temp Pulse Resp B/P (MAP) Pulse Ox O2 Delivery O2 Flow Rate FiO2 01/12/17 16:00 Mask 7.0 01/12/17 08:00 Mask 7.0 01/12/17 00:00 Mask 7.0
[2017-01-12] MEDS ORDERED: MoRPHine SULFATE 2 MG/ML CARP IV PRN (22:15)
[2017-01-13 00:09] VITALS: BP 119/61; PULSE 100; TEMP 36.7; O2SAT 86
[2017-01-13] MEDS ORDERED: RXNS5 PO (20:46)
[2017-01-13] MEDS ORDERED: ATROPS5 SL (20:46)
[2017-01-13] MEDS ORDERED: ATV1 SL (20:46)
[2017-01-13] MEDS ORDERED: SCOP1.5D2 TD (20:46)
--- NOTE | 2017-01-13 20:50 | Discharge Instructions ---
Discharge Instructions Date of Service Jan 13, 2017. Admission Reason for Admission: PNA Discharge Discharge Diagnosis / Problem: RESPIRATORY FAILURE /HOSPICE CARE Discharge Goals Goal(s): Decrease discomfort Activity Recommendations Activity Limitations: as noted below (BED REST /OUT OF BED TOLERATED ) . Instructions / Follow-Up Instructions / Follow-Up FOLLOW UP WITH [facility] FOR COMFORT CARE/HOSPICE CONTINUE SIMEON CATHETER FOR PATIENT'S COMFORT PAIN MEDICATIONS /OXYGEN CAN BE CONTINUED TO BE TITRATED PER HOSPICE NURSING FOR END OF LIFE /COMFORT CARE Current Hospital Diet Patient's current hospital diet: AHA Diet (Heart Healthy) Discharge Diet Recommended Diet: Regular Diet Diet Texture: Mechanical Soft (ground) Pending Studies Studies pending at discharge: no Medical Emergencies . Who to Call and When: Medical Emergencies: If at any time you feel your situation is an emergency, please call 911 immediately. . Non-Emergent Contact Non-Emergency issues call your: Specialist (HOSPICE CARE ) . . "Provider Documentation" section prepared by Ankita Garnett. . VTE Core Measure Inpt VTE Proph given/why not?: Warfarin (Coumadin) [place] Drug Monitoring Program Search Results: no issues identified (HOSPICE CARE )
--- NOTE | 2017-01-13 20:58 | Progress Note ---
Internal Med Progress Note Date of Service: Jan 13, 2017. Provider Documentation: SUBJECTIVE: pt remains in comfort care /hospice more lethargic today no sign of respiratory distress plan is to return home with hospice and comfort care in next 1-2 days OBJECTIVE: Vital Signs-as noted below Exam: minimum exam due to comfort care General-elderly male on soft NRB mask , no sign of distress at present , sedated Lungs-coarse rales at base Neuro-lethargic Lab data as noted below. ASSESSMENT & PLAN: HOSPICE /COMFORT CARE : cont supplemental 02 via NRB PRN PO Roxanol for distress added IV Morphine Scopolamine patch , atropine gtt ordered for increased secretion ACUTE ON CHRONIC HYPOXIC RESPIRATORY FAILURE : end stage status : Multifactorial -bilateral mediastinal lymphadenopathy( possible malignancy ) / Acute diastolic HF /aspiration pneumonia Presented with increased exertional dyspnea, cough with white sputum, hypoxia to 80's on his chronic 2 liters NC-required 4 L 02 developed worsening of respiratory distress /hypoxia Pulmonology eval requested -appreciate input poor prognosis given -possible underlying Lung malignancy : enlarged right paratracheal lymph node on the Ct chest from 11/24, very suspicious for malignancy possible mets from bladder ca vs primary lung CA pt declined Bronchoscopic Biopsy in Last admission refused Bronchoscopic biopsy today to Pulmonology does not want any aggressive intervention to be done Palliative care consulted care transitioned to Comfort care /hospice plan to return home with Hospice care MEDIASTINAL LYMPHADENOPATHY/LYMPHOMA VS METASTATIC DISEASE Noted on CT chest 11/23/[address] surgery evaluation done in last admission found to be high risk for bronchoscopic biopsy poor prognosis with progressive decline in respiratory status HOSPICE /PALLIATIVE CARE APPROPRIATE HX BLADDER CA Follows with Dr. Cabrera concern for potential malignancy to lung CONTINUE HOSPICE CARE CODE STATUS DNR/DNI DISPOSITION On hospice care Pt will return home with [facility] Plan for discharge on 01/15/17 will need litter van transport [facility]fer should remain for comfort care /pt is currently Bedbound , hypoxic with minimum movement will need / care Daughter coordinating Caregivers at home Social service following for discharge planning Vital Signs: Date Time Temp Pulse Resp B/P (MAP) Pulse Ox O2 Delivery O2 Flow Rate FiO2 01/13/17 15:53 Mask 7.0 01/13/17 11:27 Mask 7.0 01/13/17 00:09 36.7 100 18 119/61 (80) 86 6.0 01/12/17 23:59 Mask 7.0
[2017-01-13] MEDS ORDERED: SCOPOLAMINE 1.5 MG TDSY TD SCH (21:00)
[2017-01-13] MEDS: CHECK SCOPOLAMINE PATCH PLACEMENT SCH (23:06)
[2017-01-14] MEDS: CHECK SCOPOLAMINE PATCH PLACEMENT SCH (06:55)
--- NOTE | 2017-01-14 16:39 | Progress Note ---
Medicine Progress Note Date & Time of Visit: Jan 14, 2017 at 16:35. Subjective called by NAY Linda that patient has ceased to breathe, no pulse patient seen and examined no pupillary reflex no respiration, or hear rate Objective Last 8 Hrs Date Time Temp Pulse Resp B/P (MAP) Pulse Ox O2 Delivery O2 Flow Rate FiO2 01/14/17 14:06 Mask 7.0 Physical Exam: no pupillary reflex no respiration no heart rate or pulse Assessment & Plan HOSPICE /COMFORT CARE : was on supplemental 02 via NRB given PRN PO Roxanol , IV Morphine Scopolamine patch , atropine gtt - patient pronounced 01/14/17 420pm ACUTE ON CHRONIC HYPOXIC RESPIRATORY FAILURE : end stage Multifactorial -bilateral mediastinal lymphadenopathy( possible malignancy ) / Acute diastolic HF /aspiration pneumonia Presented with increased exertional dyspnea, cough with white sputum, hypoxia to 80's on his chronic 2 liters NC-required 4 L 02 developed worsening of respiratory distress /hypoxia Pulmonology consulted poor prognosis given -possible underlying Lung malignancy : enlarged right paratracheal lymph node on the Ct chest from 11/24, very suspicious for malignancy possible mets from bladder ca vs primary lung CA pt declined Bronchoscopic Biopsy in Last admission refused Bronchoscopic biopsy again this admission does not want any aggressive intervention to be done Palliative care consulted care transitioned to Comfort care /hospice MEDIASTINAL LYMPHADENOPATHY/LYMPHOMA VS METASTATIC DISEASE Noted on CT chest 11/23/[address] surgery evaluation done in last admission found to be high risk for bronchoscopic biopsy HX BLADDER CA concern for potential malignancy to lung CODE STATUS DNR/DNI daughter Arianna informed of patient's passing over the phone condolences extended to family Current Inpatient Medications: Current Inpatient Medications Medications (Trade) Dose Ordered Sig/Reginaldo Route Start Time Stop Time Status Last Admin Dose Admin Acetaminophen (Tylenol Tab) 650 mg Q4H PRN PO 01/06/17 15:30 02/05/17 15:29 Al Hydrox/Mg Hydrox/Simethicone (Maalox Max Susp) 15 ml Q4H PRN PO 01/06/17 15:30 02/05/17 15:29 Magnesium Hydroxide (Milk Of Magnesia Susp) 30 ml Q12H PRN PO 01/06/17 15:30 02/05/17 15:29 Zolpidem Tartrate (Ambien Tab) 5 mg HSZ PRN PO 01/06/17 15:30 02/05/17 15:29 Ondansetron HCl (Zofran Inj) 4 mg Q6H PRN IV 01/06/17 15:30 02/05/17 15:29 Polyethylene (Miralax Powder Packet) 17 gm DAILY PRN PO 01/06/17 15:30 02/05/17 15:29 Albuterol/ Ipratropium (Duoneb) 3 ml Q2H PRN INH 01/06/17 15:45 02/05/17 15:44 01/11/17 20:16 3 ML Morphine Sulfate (Roxanol Oral Soln) 5 mg Q4 PRN PO 01/09/17 15:15 01/23/17 15:14 Atropine Sulfate (Atropine Sulfate 1% Oph Soln) 2 drops Q2H PRN SL 01/09/17 15:15 02/08/17 15:14 01/12/17 01:26 2 DROPS Lorazepam (Ativan Inj) 1 mg Q4H PRN IV 01/09/17 15:15 02/08/17 15:14 Lorazepam (Ativan Tab) 1 mg Q6 PRN SL 01/09/17 15:15 02/08/17 15:14 Lorazepam 1 mg/ Syringe 1 ml @ 1 mls/min Q4H PRN IV 01/09/17 16:00 02/08/17 15:59 Morphine Sulfate (MoRPHine SULFATE INJ) 1 mg Q1H PRN IV 01/12/17 22:15 01/23/17 15:14 Scopolamine (Transderm-Scop Patch) 1.5 mg Q72H TD 01/13/17 21:00 02/12/17 20:59 01/13/17 21:00 1.5 MG Miscellaneous (Remove Transderm-Scop Patch) 1 ea Q72H N/A 01/16/17 20:59 02/15/17 20:58 Miscellaneous Information (Check Scopolamine Patch Placement) 1 ea QS N/A 01/14/17 00:00 02/13/17 00:00 01/14/17 06:55 1 EA
--- NOTE | 2017-01-14 16:41 | Discharge Summary ---
Discharge Summary Date of Service Jan 14, 2017. Discharge Summary Admission Date: January 06, 2017 at 15:24 Discharge Date: Jan 15, 2017 Discharge Disposition: Home Principal Diagnosis: ACUTE ON CHRONIC HYPOXIC RESPIRATORY FAILURE Secondary Diagnoses/Problems: PLEASE REFER TO HOSPITAL COURSE BELOW Consultations: PULMONARY Admission Information HPI (per Admitting provider): This is an 86 year old male with PMH of atrial fibrillation, chronic respiratory failure on home O2, hx possible aspiration pneumonia, chronic combined systolic, diastolic, valvular CHF, pulmonary hypertension, valvular disease, hypertension, CKD stage III, bladder CA, and other problems listed below who presents to the ED for SOB. Patient was recently admitted to [facility] from November 19- for AF with RVR, acute hypoxic respiratory failure newly started on oxygen at that time, pneumonia possibly aspiration treated with Unasyn/doxycycline then clindamycin, CHF exacerbation. Patient was seen by speech, had video swallow test which showed no aspiration, moderately disordered hypopharyngeal, oral motility, trace penetration. Seen by GI, offered dilation/ EGD but declined procedure. He was noted to have bulky mediastinal lymphadenopathy on CT chest. CT surgery consulted for possible bx, preop cardiology eval done, surgery cancelled due to high risk. US guided FNA was considered but patient declined. After recent hospitalization breathing had improved, but over past 1 week has worsened dyspnea on exertion, occurring with ambulating a few steps. No dyspnea at rest. Has been sleeping in recliner past few nights as "couldn't get in comfortable position" in bed. Today home health nurse noted pulse ox in 80s on his chronic 2 liters NC. Patient reports associated fatigue, generalized weakness, poor appetite. Has chronic cough with white sputum, no change from baseline per patient/ daughter. Denies aspiration episode. Has chronic rhinorrhea attributed to allergies which is unchanged. He states nose and throat are irritated from nasal O2. Has walker but does not use it. No falls. Feels cold chronically. Bilateral LE edema increased for past few days per daughter. Does not weigh himself. Denies fever, HOUGH, dizziness, chest pain, palpitations, abdominal pain, N/V/D, dysuria, frequency, calf pain, abnormal bleeding. No sick contact. Took Lasix this am but missed other AM meds. Physical Exam (per Admitting): General Appearance: WD/WN, no apparent distress, + pertinent finding ( pleasant alert elderly male, not in distress, daughter at bedside) Head: normocephalic, atraumatic Eyes: normal inspection, PERRL, EOMI ENT: pharynx normal, + pertinent finding (hard of hearing, has bilateral hearing aids) Neck: supple, no JVD, trachea midline Respiratory/Chest: no respiratory distress, no accessory muscle use, + pertinent finding (crackles right base. decreased breath sounds left base. no wheezing. on 4 liters NC saturating approx 90% when good waveform seen. ) Cardiovascular: no JVD, normal peripheral pulses, + irregularly irregular ( rate 90s) Abdomen/GI: normal bowel sounds, non tender, soft Extremities/Musculoskelatal: no calf tenderness, normal capillary refill, + pertinent finding (pedal/ pretibial edema bilaterally 1+) Neurologic/Psych: alert, normal mood/affect, oriented x 3, + pertinent finding (speech clear, no facial droop. no focal motor deficit.) Skin: normal color, warm/dry Hospital Course HOSPICE /COMFORT CARE : was on supplemental 02 via NRB given PRN PO Roxanol , IV Morphine Scopolamine patch , atropine gtt - patient pronounced 01/14/17 420pm ACUTE ON CHRONIC HYPOXIC RESPIRATORY FAILURE : end stage Multifactorial -bilateral mediastinal lymphadenopathy( possible malignancy ) / Acute diastolic HF /aspiration pneumonia developed worsening of respiratory distress /hypoxia Pulmonology consulted poor prognosis given -possible underlying Lung malignancy : enlarged right paratracheal lymph node on the Ct chest from 11/24, very suspicious for malignancy possible mets from bladder ca vs primary lung CA pt declined Bronchoscopic Biopsy in Last admission refused Bronchoscopic biopsy again this admission does not want any aggressive intervention to be done Palliative care consulted care transitioned to Comfort care /hospice MEDIASTINAL LYMPHADENOPATHY/LYMPHOMA VS METASTATIC DISEASE Noted on CT chest 11/23/[address] surgery evaluation done in last admission found to be high risk for bronchoscopic biopsy HX BLADDER CA concern for potential malignancy to lung CODE STATUS DNR/DNI daughter Arianna informed of patient's passing over the phone condolences extended to family Total time spent on discharge = 35 MINUTES This includes examination of the patient, discharge planning, medication reconciliation, and communication with other providers. Discharge Instructions Patient has .
== END 2017-01-14 20:26 | disposition expired | DRG 177 ==
LOC: ENRESERVTM → ENRESERVDT → EDBD 11:57 → C.EDC 11:58 → C.MED 15:24 → ENRESERV 01-09 10:05 → C.2T 01-09 11:22 → ENRESERV 01-09 15:11 → C.4E 01-09 15:49
PROVIDERS: ADMIT Hospitalist; ATTEND Internal Medicine
DX: J69.0 Pneumonitis due to inhalation of food and vomit (principal); J96.21 Acute and chronic respiratory failure with hypoxia; Z51.5 Encounter for palliative care; I50.42 Chronic combined systolic (congestive) and diastolic (congestive) heart failure; I13.0 Hypertensive heart and chronic kidney disease with heart failure and stage 1 through stage 4 chronic kidney disease, or unspecified chronic kidney disease; J44.1 Chronic obstructive pulmonary disease with (acute) exacerbation; I48.2 Chronic atrial fibrillation; I27.2 Other secondary pulmonary hypertension; G47.33 Obstructive sleep apnea (adult) (pediatric); Z85.46 Personal history of malignant neoplasm of prostate; Z85.51 Personal history of malignant neoplasm of bladder; Z87.891 Personal history of nicotine dependence; Z99.81 Dependence on supplemental oxygen; N18.3 Chronic kidney disease, stage 3 (moderate); Z66 Do not resuscitate; R59.0 Localized enlarged lymph nodes; I08.1 Rheumatic disorders of both mitral and tricuspid valves